=== PATIENT | male | born 1935 | race Caucasian/White ===

== ENCOUNTER → 2018-01-03 06:58 | Outpatient (CLI) | payer OTHER, SELFPAY ==
[2018-01-03 07:18] LABS: Add Manual Diff / Slide Review NO; Basophils Percent Auto 0.9 % (0-2); Eosinophils Percent Auto 1.9 % (2-4); Hematocrit 44.1 % (41-53); Hemoglobin 14.8 g/dL (13.5-17.5); Lymphocytes Percent Auto 32.8 % (25-40); Mean Corpuscular HGB Conc 33.6 % (30-36); Mean Corpuscular Hemoglobin 34.1 PG (26-34); Mean Corpuscular Volume 101.6 fL (80-100); Monocytes Percent Auto 7.4 % (3-14); Neutrophils Absolute Auto 3200 /uL (3000-5900); Red Blood Cell Count 4.35 X10^6/uL (4.5-5.9); Red Cell Distribution Width 15.5 % (11.6-14.8); White Blood Cell Count 5.6 X10^3/uL (4.5-11.0)
[2018-01-03 08:03] LABS: Platelet Count 65 X10^3/uL (150-400)
== END ==
PROVIDERS: Internal Medicine Hematology & Oncology; PCP Internal Medicine; Visit Provider Internal Medicine
DX: D69.3 Immune thrombocytopenic purpura (principal)
CPT/HCPCS: 36415; 85025

== ENCOUNTER → 2018-02-08 09:40 | Outpatient (CLI) | payer OTHER, SELFPAY ==
[2018-02-08 10:02] LABS: Add Manual Diff / Slide Review NO; Basophils Percent Auto 0.8 % (0-2); Eosinophils Percent Auto 1.4 % (2-4); Hematocrit 42.3 % (41-53); Hemoglobin 14.3 g/dL (13.5-17.5); Mean Corpuscular HGB Conc 33.8 % (30-36); Mean Corpuscular Hemoglobin 34.1 PG (26-34); Monocytes Percent Auto 5.9 % (3-14); Neutrophils Absolute Auto 2800 /uL (3000-5900); Neutrophils Percent Auto 57.9 % (50-75); Red Blood Cell Count 4.19 X10^6/uL (4.5-5.9); Red Cell Distribution Width 15.4 % (11.6-14.8); White Blood Cell Count 4.9 X10^3/uL (4.5-11.0)
[2018-02-08 10:35] LABS: Platelet Count 58 X10^3/uL (150-400)
== END ==
PROVIDERS: PCP Internal Medicine; Visit Provider Internal Medicine
DX: D69.3 Immune thrombocytopenic purpura (principal)
CPT/HCPCS: 36415; 85025

== ENCOUNTER → 2018-03-06 06:50 | Outpatient (CLI) | payer OTHER, SELFPAY ==
[2018-03-06 10:04] LABS: Add Manual Diff / Slide Review NO; Basophils Percent Auto 1.1 % (0-2); Eosinophils Percent Auto 2.6 % (2-4); Hematocrit 44.4 % (41-53); Hemoglobin 15.1 g/dL (13.5-17.5); Lymphocytes Percent Auto 30.3 % (25-40); Mean Corpuscular Volume 100.1 fL (80-100); Neutrophils Absolute Auto 3600 /uL (3000-5900); Red Blood Cell Count 4.43 X10^6/uL (4.5-5.9); Red Cell Distribution Width 15.3 % (11.6-14.8)
[2018-03-06 10:37] LABS: Platelet Count 76 X10^3/uL (150-400)
== END ==
PROVIDERS: Family Provider Internal Medicine Hematology & Oncology; PCP Internal Medicine; Visit Provider Internal Medicine
DX: D69.3 Immune thrombocytopenic purpura (principal)
CPT/HCPCS: 36415; 85025

== ENCOUNTER → 2018-04-11 06:52 | Outpatient (CLI) | payer OTHER, SELFPAY ==
[2018-04-11 07:47] LABS: Add Manual Diff / Slide Review NO; Basophils Percent Auto 0.6 % (0-2); Eosinophils Percent Auto 2.4 % (2-4); Hematocrit 40.8 % (41-53); Lymphocytes Percent Auto 30.2 % (25-40); Mean Corpuscular HGB Conc 34.3 % (30-36); Mean Corpuscular Volume 99.2 fL (80-100); Monocytes Percent Auto 8.1 % (3-14); Neutrophils Absolute Auto 3300 /uL (3000-5900); Neutrophils Percent Auto 58.7 % (50-75); Platelet Count 51 X10^3/uL (150-400); Red Blood Cell Count 4.11 X10^6/uL (4.5-5.9); Red Cell Distribution Width 15.7 % (11.6-14.8); White Blood Cell Count 5.6 X10^3/uL (4.5-11.0)
== END ==
PROVIDERS: PCP Internal Medicine; Visit Provider Internal Medicine
DX: D69.3 Immune thrombocytopenic purpura (principal)
CPT/HCPCS: 36415; 85025

== ENCOUNTER → 2018-05-15 08:53 | Outpatient (CLI) | payer OTHER, SELFPAY ==
[2018-05-15 09:50] LABS: Add Manual Diff / Slide Review NO; Basophils Percent Auto 0.5 % (0-2); Eosinophils Percent Auto 2.7 % (2-4); Hemoglobin 13.5 g/dL (13.5-17.5); Lymphocytes Percent Auto 32.8 % (25-40); Mean Corpuscular HGB Conc 33.7 % (30-36); Mean Corpuscular Hemoglobin 33.9 PG (26-34); Mean Corpuscular Volume 100.6 fL (80-100); Monocytes Percent Auto 6.1 % (3-14); Neutrophils Absolute Auto 3000 /uL (3000-5900); Neutrophils Percent Auto 57.9 % (50-75); Red Blood Cell Count 3.97 X10^6/uL (4.5-5.9); Red Cell Distribution Width 16.5 % (11.6-14.8); White Blood Cell Count 5.3 X10^3/uL (4.5-11.0)
[2018-05-15 10:12] LABS: Platelet Count 57 X10^3/uL (150-400)
== END ==
PROVIDERS: Family Provider Internal Medicine Hematology & Oncology; PCP Internal Medicine; Visit Provider Physician Assistant Medical
DX: D69.3 Immune thrombocytopenic purpura (principal)
CPT/HCPCS: 36415; 85025

== ENCOUNTER → 2018-06-06 07:22 | Outpatient (CLI) | payer OTHER, SELFPAY ==
[2018-06-06 07:43] LABS: Basophils Percent Auto 0.7 % (0-2); Eosinophils Percent Auto 4.1 % (2-4); Hematocrit 42.3 % (41-53); Hemoglobin 14.2 g/dL (13.5-17.5); Mean Corpuscular HGB Conc 33.6 % (30-36); Mean Corpuscular Hemoglobin 33.8 PG (26-34); Mean Corpuscular Volume 100.6 fL (80-100); Monocytes Percent Auto 6.3 % (3-14); Neutrophils Absolute Auto 4500 /uL (3000-5900); Neutrophils Percent Auto 65.9 % (50-75); Red Cell Distribution Width 15.6 % (11.6-14.8); White Blood Cell Count 6.9 X10^3/uL (4.5-11.0)
[2018-06-06 08:02] LABS: Add Manual Diff / Slide Review SLIDE REVIEW
[2018-06-06 08:41] LABS: Ovalocytes 1+; Platelet Estimate Decreased on smear
[2018-06-06 08:43] LABS: Platelet Count 64 X10^3/uL (150-400)
== END ==
PROVIDERS: Family Provider Internal Medicine Hematology & Oncology; PCP Internal Medicine; Visit Provider Internal Medicine
DX: D69.6 Thrombocytopenia, unspecified (principal)
CPT/HCPCS: 36415; 85025

== ENCOUNTER → 2018-07-08 06:51 | Outpatient (CLI) | payer OTHER, SELFPAY ==
[2018-07-08 08:20] LABS: Add Manual Diff / Slide Review NO; Basophils Percent Auto 0.5 % (0-2); Eosinophils Percent Auto 2.8 % (2-4); Hematocrit 43.7 % (41-53); Hemoglobin 14.5 g/dL (13.5-17.5); Lymphocytes Percent Auto 44.1 % (25-40); Mean Corpuscular HGB Conc 33.1 % (30-36); Mean Corpuscular Hemoglobin 33.3 PG (26-34); Mean Corpuscular Volume 100.6 fL (80-100); Monocytes Percent Auto 7.9 % (3-14); Neutrophils Absolute Auto 1800 /uL (3000-5900); Neutrophils Percent Auto 44.7 % (50-75); Platelet Count 56 X10^3/uL (150-400); Red Blood Cell Count 4.35 X10^6/uL (4.5-5.9); Red Cell Distribution Width 15.9 % (11.6-14.8); White Blood Cell Count 4.1 X10^3/uL (4.5-11.0)
== END ==
PROVIDERS: Family Provider Internal Medicine Hematology & Oncology; PCP Internal Medicine; Visit Provider Internal Medicine
DX: D69.9 Hemorrhagic condition, unspecified (principal)
CPT/HCPCS: 36415; 85025

== ENCOUNTER → 2018-08-08 06:55 | Outpatient (CLI) | payer OTHER, SELFPAY ==
[2018-08-08 08:12] LABS: Add Manual Diff / Slide Review NO; Basophils Percent Auto 0.8 % (0-2); Hematocrit 42.1 % (41-53); Hemoglobin 14.2 g/dL (13.5-17.5); Lymphocytes Percent Auto 32.4 % (25-40); Mean Corpuscular HGB Conc 33.7 % (30-36); Mean Corpuscular Hemoglobin 33.6 PG (26-34); Mean Corpuscular Volume 99.7 fL (80-100); Monocytes Percent Auto 8.5 % (3-14); Neutrophils Absolute Auto 3300 /uL (1500-7000); Neutrophils Percent Auto 56.3 % (50-75); Red Blood Cell Count 4.23 X10^6/uL (4.5-5.9); Red Cell Distribution Width 15.9 % (11.6-14.8); White Blood Cell Count 5.9 X10^3/uL (4.5-11.0)
[2018-08-08 08:22] LABS: Platelet Count 65 X10^3/uL (150-400)
== END ==
PROVIDERS: Family Provider Internal Medicine Hematology & Oncology; PCP Internal Medicine; Visit Provider Internal Medicine
DX: D69.59 Other secondary thrombocytopenia (principal)
CPT/HCPCS: 36415; 85025

== ENCOUNTER → 2018-09-18 06:54 | Outpatient (CLI) | payer OTHER, SELFPAY ==
[2018-09-18 08:25] LABS: Add Manual Diff / Slide Review NO; Basophils Absolute Auto 0 /uL (0-100); Basophils Percent Auto 0.7 % (0-2); Eosinophils Absolute Auto 100 /uL (0-450); Eosinophils Percent Auto 1.6 % (2-4); Hematocrit 42.6 % (41-53); Lymphocytes Absolute Auto 1900 /uL (1100-4500); Lymphocytes Percent Auto 31.1 % (25-40); Mean Corpuscular HGB Conc 32.9 % (30-36); Mean Corpuscular Hemoglobin 32.9 PG (26-34); Monocytes Absolute Auto 300 /uL (0-900); Monocytes Percent Auto 5.4 % (3-14); Neutrophils Absolute Auto 3700 /uL (1500-7000); Neutrophils Percent Auto 61.2 % (50-75); Red Blood Cell Count 4.26 X10^6/uL (4.5-5.9); Red Cell Distribution Width 16.4 % (11.6-14.8)
[2018-09-18 12:16] LABS: Platelet Count 64 X10^3/uL (150-400)
== END ==
PROVIDERS: Family Provider Internal Medicine Hematology & Oncology; PCP Internal Medicine; Visit Provider Internal Medicine
DX: D69.6 Thrombocytopenia, unspecified (principal)
CPT/HCPCS: 36415; 85025

== ENCOUNTER → 2018-10-08 06:54 | Outpatient (CLI) | payer OTHER, SELFPAY ==
[2018-10-08 09:48] LABS: Add Manual Diff / Slide Review NO; Basophils Absolute Auto 0 /uL (0-100); Basophils Percent Auto 0.9 % (0-2); Eosinophils Absolute Auto 100 /uL (0-450); Eosinophils Percent Auto 3.4 % (2-4); Hematocrit 41.4 % (41-53); Lymphocytes Absolute Auto 1600 /uL (1100-4500); Lymphocytes Percent Auto 38.4 % (25-40); Mean Corpuscular HGB Conc 33.7 % (30-36); Mean Corpuscular Hemoglobin 33.5 PG (26-34); Mean Corpuscular Volume 99.5 fL (80-100); Monocytes Absolute Auto 300 /uL (0-900); Monocytes Percent Auto 8.5 % (3-14); Neutrophils Absolute Auto 2000 /uL (1500-7000); Neutrophils Percent Auto 48.8 % (50-75); Red Blood Cell Count 4.17 X10^6/uL (4.5-5.9); Red Cell Distribution Width 16.5 % (11.6-14.8); White Blood Cell Count 4.1 X10^3/uL (4.5-11.0)
[2018-10-08 09:49] LABS: Platelet Count 53 X10^3/uL (150-400)
== END ==
PROVIDERS: Family Provider Internal Medicine Hematology & Oncology; PCP Internal Medicine; Visit Provider Internal Medicine
DX: D69.6 Thrombocytopenia, unspecified (principal)
CPT/HCPCS: 36415; 85025

== ENCOUNTER → 2018-11-07 06:54 | Outpatient (CLI) | payer OTHER, SELFPAY ==
--- NOTE | 2018-11-07 | DI.CT.S_ITS ---
PROCEDURE: CT ANGIO CHEST PE PROTOCOL INDICATIONS: Pleurodynia TECHNIQUE: After the administration of intravenous contrast, 2 mm thick sections acquired from the pulmonary apices to the posterior costophrenic angles. 3-dimensional maximum intensity projection (MIP) coronal and sagittal reformats were then acquired through the thorax. For radiation dose reduction, the following was used: automated exposure control, adjustment of mA and/or kV according to patient size. COMPARISON: None. FINDINGS: Image quality: Excellent. Pulmonary arteries: Pulmonary arteries are normal in size, and demonstrate no intraluminal filling defects to suggest central pulmonary embolism. Lungs and pleura: There is a hypodense mass identified demonstrating decreased or absent enhancement with vessels coursing through this structure along the right middle lobe, which measures 6.4 x 2.6 x 4.2 cm (image 45, series 7 and image 80, series 4). This structure is at the level of the diaphragm/pleura. Additional areas of scarring versus atelectasis are seen in the posterior costophrenic angles. No additional masses or large areas of consolidation are present. Mild bronchial wall thickening is noted within the bilateral lower lobes. Mediastinum: Heart size is enlarged, without pericardial effusion. Coronary and aortic atherosclerosis is present. No mediastinal or hilar adenopathy. Thoracic aorta is normal in caliber and enhancement. Esophagus is normal in caliber, without hiatal hernia. Bones and chest wall: No suspicious bony lesions. Ribs and thoracic spine appear intact throughout. The age-appropriate degenerative changes of the spine and shoulders are present. There may be a right thyroid nodule. No axillary or supraclavicular adenopathy. Abdomen: Small foci of low attenuation are seen within the liver, possibly representing cysts, but not adequately characterized. upper abdominal solid organs appear normal in the early arterial phase of enhancement. IMPRESSION: 1. No evidence of pulmonary emboli. 2. Nonenhancing/hypodense mass in the inferior right middle lobe may represent a neoplastic process, rounded atelectasis, or atypical pneumonia. Clinical correlation is recommended. Followup CT in 4-6 weeks is recommended to reevaluate this mass, if a biopsy is not currently warranted. 3. Cardiomegaly. 4. Mild bronchial wall thickening within the bilateral lower lobes may represent bronchitis. 5. Possible right thyroid nodule. Please consider thyroid ultrasound for better evaluation. Dictated by: Shyam Pavon M.D. on 11/07/2018 at 9:54 Approved by: Shyam Pavon M.D. on 11/07/2018 at 10:12
[2018-11-07 07:51] LABS: Add Manual Diff / Slide Review NO; Basophils Absolute Auto 100 /uL (0-100); Basophils Percent Auto 0.7 % (0-2); Eosinophils Absolute Auto 100 /uL (0-450); Eosinophils Percent Auto 0.7 % (2-4); Hematocrit 38.6 % (41-53); Hemoglobin 13.2 g/dL (13.5-17.5); Lymphocytes Absolute Auto 1800 /uL (1100-4500); Mean Corpuscular HGB Conc 34.2 % (30-36); Mean Corpuscular Hemoglobin 33.8 PG (26-34); Mean Corpuscular Volume 98.8 fL (80-100); Monocytes Absolute Auto 900 /uL (0-900); Monocytes Percent Auto 9.4 % (3-14); Neutrophils Absolute Auto 6600 /uL (1500-7000); Neutrophils Percent Auto 70.2 % (50-75); Red Blood Cell Count 3.91 X10^6/uL (4.5-5.9); Red Cell Distribution Width 16.1 % (11.6-14.8); White Blood Cell Count 9.4 X10^3/uL (4.5-11.0)
[2018-11-07 08:42] LABS: Platelet Count 59 X10^3/uL (150-400)
== END ==
PROVIDERS: Family Medicine; Family Provider Internal Medicine Hematology & Oncology; PCP Internal Medicine; Visit Provider Internal Medicine
DX: R07.81 Pleurodynia (principal); D69.6 Thrombocytopenia, unspecified; R91.8 Other nonspecific abnormal finding of lung field; I51.7 Cardiomegaly
CPT/HCPCS: 36415; 71275; 85025; Q9967

== ENCOUNTER → 2018-11-15 08:37 | Outpatient (CLI) | payer OTHER, SELFPAY ==
--- NOTE | 2018-11-15 08:42 | DI.CT.S_ITS ---
PROCEDURE: CT CHEST WO CON INDICATIONS: Pneumonia, unspecified organism TECHNIQUE: Noncontrast 5 mm thick sections acquired from the pulmonary apices to the posterior costophrenic angles. 7 mm thick coronal and sagittal MIP reformats were then acquired. For radiation dose reduction, the following was used: automated exposure control, adjustment of mA and/or kV according to patient size. COMPARISON: [facility], CT, CT ANGIO CHEST PE PROTOCOL, 11/07/2018, 10:39. FINDINGS: Image quality: Excellent. Lungs and pleura: Again noted is a probable necrotic mass in the right middle lobe with possible associated postobstructive collapse.. Is not significantly changed. It measures approximately 3.8 x 6.3 cm. It would be amenable to CT-guided biopsy. No other pulmonary nodules. Mediastinum: Heart size is normal. No pericardial effusion. Coronary artery calcifications. Shoddy mediastinal adenopathy. Thoracic aorta and central pulmonary arteries are normal in size. Esophagus is normal in caliber. No hiatal hernia. Bones and chest wall: No suspicious bony lesions. Severe, probably chronic T12 compression fracture. No axillary or supraclavicular adenopathy by size criteria. Thyroid gland is better evaluated on the prior contrast study. There is a likely right lobe thyroid nodule. Abdomen: Visualized upper abdominal solid organs and bowel loops appear normal in the absence of contrast. IMPRESSION: 1. The process centered in the right middle lobe is unchanged. 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 It is amenable to CT-guided biopsy if desired. 2. A T12 compression fracture is likely chronic. The Dictated by: Alverto Pickett M.D. on 11/15/2018 at 11:41 Approved by: Alverto Picektt M.D. on 11/15/2018 at 11:56
== END ==
PROVIDERS: Family Provider Internal Medicine Hematology & Oncology; PCP Internal Medicine; Visit Provider Internal Medicine
DX: J18.9 Pneumonia, unspecified organism (principal); M48.54XA Collapsed vertebra, not elsewhere classified, thoracic region, initial encounter for fracture
CPT/HCPCS: 71250

== ENCOUNTER → 2018-12-02 10:13 | Outpatient (CLI) | payer OTHER, SELFPAY ==
--- NOTE | 2018-12-02 | DI.US.S_ITS ---
PROCEDURE: US THYROID INDICATIONS: THYROID NODULE TECHNIQUE: Real-time scanning was performed of the thyroid gland, with image documentation. COMPARISON: None. FINDINGS: Right: Thyroid lobe measures 4.3 x 2.0 x 2.6 cm, and is homogeneous in echotexture. Left: Thyroid lobe measures 2.3 x 0.9 x 0.9 cm, and is homogenous in echotexture. Isthmus: 3.4 mm thick. Nodule number: 1 Location: Right superior Size: 2.9 x 2.3 x 2.2 cm. Composition: Solid Echogenicity: Heterogeneous Shape: wider than tall. Margins: Smooth Echogenic foci: None Total points: 4 ACR TI-RADS category: Moderately suspicious Nodule number: 2 Location: Left superior to mid Size: 0.4 x 0.3 x 0.5 cm. Composition: Predominantly cystic Echogenicity: Anechoic Shape: wider than tall. Margins: Ill-defined Echogenic foci: None Total points: 2 ACR TI-RADS category: Not suspicious IMPRESSION: Moderately suspicious right thyroid nodule measuring up to 2.9 cm. Recommend sonographically directed fine needle aspiration for pathologic diagnosis. ACR TI-RADS definitions and recommendations: TI-RADS 1 (benign): 0 points. FNA not needed. TI-RADS 2 (not suspicious): 2 points. FNA not needed. TI-RADS 3 (mildly suspicious): 3 points. * FNA if 2.5 cm or larger, follow up if 1.5 cm or larger (at 1, 3, and 5 years). TI-RADS 4 (moderately suspicious): 4-6 points. * FNA if 1.5 cm or larger, follow up if 1 cm or larger (at 1, 2, 3, and 5 years). TI-RADS 5 (highly suspicious): 7 points or more. * FNA if 1 cm or larger, follow up if 0.5 cm or larger (every year for 5 years). Dictated by: Matt MARTINEZ Interpreted: Janny Weaver MD on 12/02/2018 at 11:25 Approved by: Janny Weaver MD, PhD on 12/02/2018 at 18:02
== END ==
PROVIDERS: Family Provider Internal Medicine Hematology & Oncology; PCP Internal Medicine; Visit Provider Internal Medicine
DX: E04.2 Nontoxic multinodular goiter (principal)
CPT/HCPCS: 76536

== ENCOUNTER → 2018-12-11 10:30 | Outpatient (CLI) | payer OTHER, SELFPAY ==
--- NOTE | 2018-12-11 | DI.CT.S_ITS ---
PROCEDURE: CT CHEST WO CON INDICATIONS: Other nonspecific abnormal finding of lung field TECHNIQUE: Noncontrast 5 mm thick sections acquired from the pulmonary apices to the posterior costophrenic angles. 7 mm thick coronal and sagittal MIP reformats were then acquired. For radiation dose reduction, the following was used: automated exposure control, adjustment of mA and/or kV according to patient size. COMPARISON: [facility], CT, CT CHEST WO CON, 11/15/2018, 8:42. FINDINGS: Image quality: Excellent. Lungs and pleura: No acute or new consolidation. There is redemonstration of presumed atelectasis in the right middle lobe which is improved since the prior study in keeping with resolving infectious or inflammatory pneumonia. No pleural effusions or pneumothorax. Central and peripheral airways are patent and normal in caliber. Mediastinum: Heart size is normal. Coronary artery calcifications are present. No pericardial effusion. No mediastinal adenopathy by size criteria. Thoracic aorta and central pulmonary arteries are normal in size. Esophagus is normal in caliber. No hiatal hernia. Bones and chest wall: No suspicious bony lesions. No vertebral body compression fractures. No axillary or supraclavicular adenopathy by size criteria. Thyroid gland unremarkable. Abdomen: Low-attenuation subcentimeter hepatic focus in the left lobe, too small to characterize probably cyst or hemangioma given unchanged appearance IMPRESSION: Improved, resolving right middle lobe pneumonia since 11/15/18. Consider continued followup to document complete resolution and exclude underlying small nodule. Dictated by: Brendan Jasso M.D. on 12/11/2018 at 13:50 Approved by: Brendan Jasso M.D. on 12/11/2018 at 13:54
[2018-12-11 11:06] LABS: Add Manual Diff / Slide Review NO; Basophils Absolute Auto 0 /uL (0-100); Basophils Percent Auto 0.7 % (0-2); Eosinophils Absolute Auto 100 /uL (0-450); Eosinophils Percent Auto 1.8 % (2-4); Hematocrit 42.2 % (41-53); Hemoglobin 14.2 g/dL (13.5-17.5); Lymphocytes Absolute Auto 1800 /uL (1100-4500); Lymphocytes Percent Auto 38.2 % (25-40); Mean Corpuscular HGB Conc 33.6 % (30-36); Mean Corpuscular Hemoglobin 33.6 PG (26-34); Monocytes Absolute Auto 400 /uL (0-900); Monocytes Percent Auto 7.6 % (3-14); Neutrophils Absolute Auto 2400 /uL (1500-7000); Neutrophils Percent Auto 51.7 % (50-75); Red Blood Cell Count 4.22 X10^6/uL (4.5-5.9); Red Cell Distribution Width 16.9 % (11.6-14.8); White Blood Cell Count 4.6 X10^3/uL (4.5-11.0)
[2018-12-11 11:38] LABS: Platelet Count 51 X10^3/uL (150-400)
== END ==
PROVIDERS: Family Provider Internal Medicine Hematology & Oncology; PCP Internal Medicine; Visit Provider Internal Medicine
DX: J18.9 Pneumonia, unspecified organism (principal); R91.8 Other nonspecific abnormal finding of lung field; I25.10 Atherosclerotic heart disease of native coronary artery without angina pectoris; D69.6 Thrombocytopenia, unspecified
CPT/HCPCS: 36415; 71250; 85025

== ENCOUNTER → 2018-12-18 08:57 | Outpatient (CLI) | payer OTHER, SELFPAY ==
--- NOTE | 2018-12-18 | DI.MRI.S_ITS ---
PROCEDURE: MR HEAD/BRAIN WO/W CON INDICATIONS: Dizziness and giddiness TECHNIQUE: Noncontrast axial T1 spin echo, axial T2 fast spin echo, sagittal and axial FLAIR, coronal T2 fast spin echo, axial gradient echo, axial diffusion and ADC through the brain. After the administration of contrast, axial and coronal T1 spin echo with fat saturation through the brain. COMPARISON: [place], [place], ID PET CT FUSION SKULL 2 THIGH, 11/27/2018, 15:06. FINDINGS: Image quality: Excellent. CSF spaces: Basal cisterns are patent. No extra-axial fluid collections. Ventricles are normal in size and shape. Brain: No midline shift. No intracranial bleeds or masses. No abnormal intracranial enhancement. There is mild cerebral volume loss for age. There are mild periventricular white matter chronic small vessel ischemic changes. Dilated perivascular space is noted in basal ganglia bilaterally. The brainstem appears normal. Diffusion-weighted images demonstrate no acute ischemic insults. No chronic ischemic insults. Normal intravascular flow voids are present. Skull and face: Calvarial marrow is normal in signal. Orbits appear normal. Sinuses: Sinuses and mastoids appear clear. IMPRESSION: 1. No acute intracranial abnormalities. 2. Mild cerebral volume loss and chronic microvascular ischemic changes. Dictated by: Tre Mane M.D. on 12/18/2018 at 9:32 Approved by: Tre Mane M.D. on 12/18/2018 at 9:38
--- NOTE | 2018-12-18 | DI.US.S_ITS ---
PROCEDURE: US CAROTID DOPPLER BI INDICATIONS: DIZZINESS AND GIDDINESS TECHNIQUE: Color and pulse Doppler interrogation was performed of both carotid systems, with image documentation and velocity measurements. COMPARISON: [facility], , CAROTID ARTERY DOPPLER BILAT, 08/31/2017, 8:44. FINDINGS: Stenosis calculations are based on SRU (Society of Radiologists in Ultrasound) criteria. Right side: Brachial blood pressure: 96/60 mm Hg. Common carotid artery peak systolic velocity: 64 cm/sec. Internal carotid artery peak systolic velocity: 55 cm/sec. Internal carotid artery end diastolic velocity: 22 cm/sec. External carotid artery peak systolic velocity: 76 cm/sec. ICA/CCA peak systolic ratio: 1.0. Cantrell scale imaging description: There is mild echogenic plaque at the carotid bifurcation and in the carotid bulb. Percent internal carotid artery stenosis: Less than 50%. Vertebral artery: Flow direction is antegrade. Left side: Brachial blood pressure: 99/64 mm Hg. Common carotid artery peak systolic velocity: 119 cm/sec. Internal carotid artery peak systolic velocity: 57 cm/sec. Internal carotid artery end diastolic velocity: 23 cm/sec. External carotid artery peak systolic velocity: 59 cm/sec. ICA/CCA peak systolic ratio: 0.5 Cantrell scale imaging description: There mild echogenic plaque in the carotid bulb. Percent internal carotid artery stenosis: Less than 50%. Vertebral artery: Flow direction is antegrade. IMPRESSION: 1. Bilateral mild narrowing of less than 50% in the carotid bulbs. No evidence of hemodynamically significant stenosis. Dictated by: Michael Davenport M.D. on 12/18/2018 at 10:45 Approved by: Michael Davenport M.D. on 12/18/2018 at 10:55
== END ==
PROVIDERS: Family Provider Internal Medicine Hematology & Oncology; PCP Internal Medicine; Visit Provider Otolaryngology
DX: R42 Dizziness and giddiness (principal); I65.23 Occlusion and stenosis of bilateral carotid arteries
CPT/HCPCS: 70553; 93880; A9579

== ENCOUNTER → 2018-12-25 09:39 | Outpatient (CLI) | payer OTHER, SELFPAY ==
--- NOTE | 2018-12-25 | PATH_ITS ---
Note [facility] Accession Number: [id number] TESTS RESULT FLAG UNITS REF RANGE LAB Clinician Provided Cytology Information No. of containers..01 ThinPrep Vial No. of containers..18 Previously Prepared Cytology Slide R THYROID NODULE DIAGNOSIS: R THYROID NODULE INADEQUATE, INSUFFICIENT CELLS FOR STUDY. [place] CATEGORY I. NONDIAGNOSTIC: MARKEDLY HYPOCELLULAR SPECIMEN. Pathologist ICD10: 02 E04.1 01 A follow-up noncontrast CT scan on November 15, 2018 again showed right middle lobe 3.8 x 6.3 cm mass lesion. He has just had a PET scan done on November 27, 2018, which revealed 2.4 x 4.4 cm mass in the right middle lobe. The lesion had mild FDG activity with maximum SUV 2.6. Incidentally he was also found to have enlargeed right thyroid lobe wtih mildly increased FDG activity. Thyroid altrasound on December 02, 2018 revealed right superior lobe solid thyroid nodule, size 2.9 x 2.3 x 2.2 cm. The nodule was rated as moderately suspicious. 02 Consuelo Champagne MD, Pathologist NPI- [id number] 01 Omer Colin, [facility] ([facility]) 01 30 CC, RED, CLEAR Also received 9 alcohol fixed, 9 quick stained slides, and 1 RNA vial. /[facility] FLAG LEGEND: L-Low Normal,H-High Normal,LL-Alert Low,HH-Alert High <-Panic Low,>-Panic High,A-Abnormal,AA-Critical Abnormal Performed at: 01 =[facility] [address], [place] [address] Michael Willingham MD, 02 [facility] [address] [place] [id number] Leeanne Neves MD, Performed at: 01 [facility] [address], [place], [place] [id number] MD Michael Willingham MD Phone: [phone]
--- NOTE | 2018-12-25 | DI.US.S_ITS ---
PROCEDURE: US FINE NEEDLE ASPIRATION INDICATIONS: NODULE TECHNIQUE: The indications, alternatives, benefits, risks, and complications of the procedure were explained to the patient. Written informed consent was obtained and placed in the chart. The thyroid region was examined sonographically and a site was chosen for ultrasound guided percutaneous sampling. The skin was prepared and draped in the usual fashion, and anesthetized with 1% lidocaine infiltrated from the skin down to the thyroid gland. Multiple passes were then performed, with contents emptied into an appropriate pathology specimen container. A bandage was applied to the area of access at completion of the study. COMPARISON: None. FINDINGS: Location(s) of lesion(s) sampled: Right thyroid lobe dominant nodule. [place]: 25 gauge hypodermic needles. Number of passes: 10 Medications: 1% lidocaine for local anaesthesia. Complications: None. IMPRESSION: Successful ultrasound-guided thyroid nodule fine needle aspiration, with cytology results pending. Please see chart below for management recommendations based on cytology results. [facility] ReportingRecommendationsNon-diagnostic* Repeat US-guided FNA, with on-site cytology evaluation if possible. * Repeated non-diagnostic nodules without high suspicion US features: close observation vs surgical consult. * Consider surgery if nodule has high suspicion US features, grows >20% in 2 dimensions on followup, or patient has clinical risk factors for malignancy. Benign* If nodule has high suspicion US features: repeat US and FNA within 12 months. * If nodule has low to intermediate suspicion US features: repeat US at 12-24 months. If nodule grows (20% increase in at least 2 dimensions, with minimal increase of 2 mm or >50% change in volume), or development of new suspicious US features, then repeat FNA or continue followup. * If nodule has very low suspicion US features: followup US at >24 months. Atypia of undetermined significance, follicular lesion of undetermined significanceRepeat FNA, molecular testing, followup US, or surgical consult.Follicular neoplasm, suspicious for follicular neoplasmSurgical consult; also consider molecular testing. Suspicious for malignancySurgical consult.MalignantSurgical consult. Dictated by: Lazaro Lomeli M.D. on 12/25/2018 at 11:54 Approved by: Lazaro Lomeli M.D. on 12/25/2018 at 11:55
== END ==
PROVIDERS: Family Provider Internal Medicine Hematology & Oncology; PCP Internal Medicine; Visit Provider Internal Medicine
DX: E04.1 Nontoxic single thyroid nodule (principal)
CPT/HCPCS: 10005

== ENCOUNTER → 2019-01-14 07:00 | Outpatient (CLI) | payer OTHER, SELFPAY ==
[2019-01-14 08:32] LABS: Add Manual Diff / Slide Review NO; Basophils Absolute Auto 0 /uL (0-100); Eosinophils Absolute Auto 100 /uL (0-450); Eosinophils Percent Auto 2.2 % (2-4); Hematocrit 42.3 % (41-53); Hemoglobin 14.4 g/dL (13.5-17.5); Lymphocytes Absolute Auto 2000 /uL (1100-4500); Lymphocytes Percent Auto 41.1 % (25-40); Mean Corpuscular HGB Conc 34.1 % (30-36); Mean Corpuscular Hemoglobin 33.9 PG (26-34); Mean Corpuscular Volume 99.4 fL (80-100); Monocytes Absolute Auto 400 /uL (0-900); Monocytes Percent Auto 7.1 % (3-14); Neutrophils Absolute Auto 2400 /uL (1500-7000); Neutrophils Percent Auto 48.6 % (50-75); Red Blood Cell Count 4.25 X10^6/uL (4.5-5.9); Red Cell Distribution Width 16.5 % (11.6-14.8); White Blood Cell Count 4.9 X10^3/uL (4.5-11.0)
[2019-01-14 08:44] LABS: Platelet Count 51 X10^3/uL (150-400)
== END ==
PROVIDERS: Family Provider Internal Medicine Hematology & Oncology; PCP Internal Medicine; Visit Provider Internal Medicine
DX: D69.6 Thrombocytopenia, unspecified (principal)
CPT/HCPCS: 36415; 85025

== ENCOUNTER → 2019-02-06 06:52 | Outpatient (CLI) | payer OTHER, SELFPAY ==
[2019-02-06 07:46] LABS: Hematocrit 42.9 % (41-53); Hemoglobin 14.3 g/dL (13.5-17.5); Mean Corpuscular HGB Conc 33.4 % (30-36); Mean Corpuscular Hemoglobin 33.6 PG (26-34); Mean Corpuscular Volume 100.8 fL (80-100); Red Blood Cell Count 4.25 X10^6/uL (4.5-5.9); Red Cell Distribution Width 16.1 % (11.6-14.8); White Blood Cell Count 4.6 X10^3/uL (4.5-11.0)
[2019-02-06 07:47] LABS: Platelet Count 52 X10^3/uL (150-400)
[2019-02-06 08:44] LABS: Add Manual Diff / Slide Review SLIDE REVIEW
[2019-02-06 08:45] LABS: Platelet Estimate Decreased on smear
[2019-02-06 08:46] LABS: Anisocytosis 1+; Macrocytosis 1+; Ovalocytes 1+; Poikilocytosis 1+
== END ==
PROVIDERS: Family Provider Internal Medicine Hematology & Oncology; PCP Internal Medicine; Visit Provider Internal Medicine
DX: D69.6 Thrombocytopenia, unspecified (principal)
CPT/HCPCS: 36415; 85025

== ENCOUNTER → 2019-02-13 06:40 | Outpatient (CLI) | payer OTHER, SELFPAY ==
--- NOTE | 2019-02-13 07:16 | DI.CT.S_ITS ---
PROCEDURE: CT CHEST WO CON INDICATIONS: LUNG MASS TECHNIQUE: Noncontrast 2.0-2.5 mm thick sections acquired from the pulmonary apices to the posterior costophrenic angles. 7 mm thick axial MIP and 5 mm coronal and sagittal reformats were then acquired. A low radiation dose technique was utilized. COMPARISON: [facility], US, US THYROID, 12/02/2018, 10:26. [facility], CT, CT CHEST WO CON, 11/15/2018, 8:42. [facility], CT, CT CHEST WO CON, 12/11/2018, 10:46. FINDINGS: Image quality: Diagnostic, given the low radiation dose technique. Lungs and pleura: No acute consolidation. There is ill-defined scarring/atelectasis involving the right middle lobe appears less prominent in size and appearance since 12/11/18. No new focal consolidation is seen. Scattered bibasilar atelectasis and scarring. Mild central airway thickening Mediastinum: Heart size is normal. Coronary artery calcifications are present. No pericardial effusion. No mediastinal adenopathy by size criteria. Thoracic aorta and central pulmonary arteries are normal in size. Esophagus is normal in caliber. No hiatal hernia. Bones and chest wall: No suspicious bony lesions. Unchanged appearance of thoracolumbar compression fracture. No axillary or supraclavicular adenopathy by size criteria. Redemonstrated right-sided thyroid nodule as previously described on the comparison ultrasound from 12/02/18. Please see report. Abdomen: Subcentimeter hypodensities present in the dome the liver as before, presumably small hepatic cysts or hemangiomas given stable appearance although technically nonspecific. IMPRESSION: Interval near-complete resolution of right middle lobe, with residual mild scarring/atelectasis. No discrete pulmonary nodule identified. Coronary artery disease. Additional chronic and incidental findings as above. Fleischner Society criteria for SOLID lung nodule followup. Nodule size (mm)Low-risk patientHigh-risk patient<6 (single or multiple)No routine followup.Optional CT at 12 months. 6-8 (single or multiple)CT at 6-12 months, then optional CT at 18-24 mo.CT at 6-12 months, then CT at 18-24 months. >8 (single)CT at 3 months, PET-CT, or biopsy. Same as for low-risk pts. >8 (multiple)CT at 3-6 months, then optional CT at 18-24 mo.CT at 3-6 months, then CT at 18-24 months. Fleischner Society criteria for SUB-SOLID lung nodule followup. Solitary pure ground-glass nodules<6 mm (ground glass or part solid)No followup needed. 6 mm or larger (ground glass)CT at 6-12 months to confirm persistence, then CT every 2 years until 5 years.6 mm or larger (part solid)CT at 3-6 months to confirm persistence, then annual CT until 5 years if unchanged and solid component remains <6 mm. Multiple sub-solid nodules<6 mmCT at 3-6 months, then CT consider at 2 & 4 years for high risk patients. [address] at 3-6 months. Subsequent management based on most suspicious lesions. Recommendations do not apply to lung cancer screening, patients with immunosuppression, or patients with known primary cancer. Dictated by: Brendan Jasso M.D. on 02/13/2019 at 10:52 Approved by: Brendan Jasso M.D. on 02/13/2019 at 11:22
== END ==
PROVIDERS: Family Provider Internal Medicine Hematology & Oncology; PCP Internal Medicine; Visit Provider Internal Medicine
DX: R91.8 Other nonspecific abnormal finding of lung field (principal); J98.11 Atelectasis; J98.4 Other disorders of lung; I25.10 Atherosclerotic heart disease of native coronary artery without angina pectoris; E04.1 Nontoxic single thyroid nodule
CPT/HCPCS: 71250

== ENCOUNTER → 2019-03-18 07:03 | Outpatient (CLI) | payer OTHER, SELFPAY ==
[2019-03-18 08:40] LABS: Add Manual Diff / Slide Review NO; Basophils Absolute Auto 0 /uL (0-100); Basophils Percent Auto 0.8 % (0-2); Eosinophils Absolute Auto 100 /uL (0-450); Eosinophils Percent Auto 2.2 % (2-4); Hematocrit 44.2 % (41-53); Hemoglobin 15.1 g/dL (13.5-17.5); Lymphocytes Absolute Auto 1600 /uL (1100-4500); Lymphocytes Percent Auto 43.3 % (25-40); Mean Corpuscular HGB Conc 34.2 % (30-36); Mean Corpuscular Hemoglobin 34.2 PG (26-34); Mean Corpuscular Volume 99.8 fL (80-100); Monocytes Absolute Auto 400 /uL (0-900); Monocytes Percent Auto 9.8 % (3-14); Neutrophils Absolute Auto 1600 /uL (1500-7000); Neutrophils Percent Auto 43.9 % (50-75); Red Blood Cell Count 4.42 X10^6/uL (4.5-5.9); Red Cell Distribution Width 15.5 % (11.6-14.8); White Blood Cell Count 3.7 X10^3/uL (4.5-11.0)
[2019-03-18 09:46] LABS: Platelet Count 49 X10^3/uL (150-400)
== END ==
PROVIDERS: Family Provider Internal Medicine Hematology & Oncology; PCP Internal Medicine; Visit Provider Internal Medicine
DX: D69.6 Thrombocytopenia, unspecified (principal)
CPT/HCPCS: 36415; 85025

== ENCOUNTER → 2019-04-14 07:00 | Outpatient (CLI) | payer OTHER, SELFPAY ==
[2019-04-14 08:05] LABS: Add Manual Diff / Slide Review NO; Basophils Absolute Auto 100 /uL (0-100); Basophils Percent Auto 1.2 % (0-2); Eosinophils Absolute Auto 100 /uL (0-450); Eosinophils Percent Auto 2.9 % (2-4); Hematocrit 44.3 % (41-53); Hemoglobin 14.9 g/dL (13.5-17.5); Lymphocytes Absolute Auto 1600 /uL (1100-4500); Lymphocytes Percent Auto 35.6 % (25-40); Mean Corpuscular HGB Conc 33.6 % (30-36); Mean Corpuscular Hemoglobin 33.8 PG (26-34); Mean Corpuscular Volume 100.8 fL (80-100); Monocytes Absolute Auto 400 /uL (0-900); Monocytes Percent Auto 7.9 % (3-14); Neutrophils Absolute Auto 2400 /uL (1500-7000); Neutrophils Percent Auto 52.4 % (50-75); Platelet Count 50 X10^3/uL (150-400); Red Cell Distribution Width 16.3 % (11.6-14.8); White Blood Cell Count 4.5 X10^3/uL (4.5-11.0)
== END ==
PROVIDERS: Family Provider Internal Medicine Hematology & Oncology; PCP Internal Medicine; Visit Provider Internal Medicine
DX: D69.6 Thrombocytopenia, unspecified (principal)
CPT/HCPCS: 36415; 85025

== ENCOUNTER 2019-05-10 09:52 | Emergency (ER) | payer OTHER, SELFPAY ==
[2019-05-10 10:08] VITALS: BP 105/57; PULSE 61; RESP 18; TEMP 36.5; O2SAT 97; BMI 24.3
--- NOTE | 2019-05-10 10:16 | ED_ITS ---
HPI - Abdominal Pain General Chief Complaint: Abdominal Pain Stated Complaint: abd pain/n&v/low back/lt arm x2 Time Seen by Provider: 05/10/19 10:01 Source: patient Mode of arrival: Family Vehicle Limitations: no limitations History of Present Illness HPI narrative: 84-year-old male here for evaluation of upper abdomen pain. He states that he has felt very full for the past 24 hours. He also states that he slept most of the day yesterday. He did have 1 episode of vomiting. No prior abdominal surgeries. Went to the walk-in clinic who sent him here to the emergency department. No problems urinating. No change in bowel habits. No prior abdominal surgeries. Related Data Previous Rx's Medication Instructions Recorded sulfamethoxazole-trimethoprim 1 tab PO BID #42 tab 09/02/16 ondansetron 4 mg PO Q6H PRN #10 tab 05/10/19 Allergies Allergy/AdvReac Type Severity Reaction Status Date / Time No Known Drug Allergies Allergy Verified 05/10/19 10:36 Review of Systems Constitutional Constitutional: Denies fever(s) and Denies headache(s) ENT Ears, Nose, Mouth, and Throat: Denies headache(s) Cardiovascular Cardiovascular: Denies chest pain and Denies dyspnea Respiratory Respiratory: Denies dyspnea Gastrointestinal Gastrointestinal: Reports abdominal pain, Denies constipation, Denies diarrhea and Reports vomiting Genitourinary Genitourinary: Denies hematuria and Denies dysuria Musculoskeletal Musculoskeletal: Denies myalgias and Denies arthralgias Integumentary/Breasts Skin/Breast: Denies rash Neurologic Neurologic: Denies confusion and Denies headache(s) Psychiatric Psychiatric: Denies confusion Hematologic/Lymphatic Hematologic/Lymphatic: Denies easy bleeding and Denies easy bruising [facility] Medical History Patient denies medical problems (Acute) Social History Smoking Status: Former smoker Social History Smoking Status: Former smoker Exam Initial Vital Signs Initial Vital Signs: Vital Signs Temperature 97.7 F 05/10/19 10:08 Pulse Rate 61 05/10/19 10:08 Respiratory Rate 18 05/10/19 10:08 Blood Pressure 105/57 L 05/10/19 10:08 Pulse Oximetry 97 05/10/19 10:08 Const General: cooperative, healthy appearing, comfortable and well developed HENMT Head: normal to inspection and normocephalic Resp Effort & Inspection: normal respiratory effort Auscultation: clear to auscultation bilaterally Cardio Rate: regular rate Rhythm: regular rhythm GI Inspection: non-distended Palpation: soft, No firm and No tender Skin Lesions: no lesions Rashes: no rashes Neuro General: alert and awake Cognition: normal cognition Speech: speech normal Motor: muscle tone normal throughout Extrem General: normal to inspection and capillary refill normal Psych Appearance: grossly normal and well kempt Course Orders Ordered: ED Orders 05/10/19 10:07 EKG-12 Lead Stat 05/10/19 10:17 CT abdomen pelvis w con Stat 05/10/19 10:21 Complete Blood Count AUTO DIFF Stat Comprehensive Metabolic Panel Stat Lipase Stat Partial Thromboplastin Time Stat Prothrombin Time INR Stat Trop I [Troponin I] Stat Discontinued Medications Sodium Chloride (Normal Saline 0.9%) 1,000 mls @ 1,000 mls/hr IV BOLUS ONE Stop: 05/10/19 11:15 Last Infusion: 05/10/19 12:22 Dose: 0 mls/hr Documented by: Admin: 05/10/19 10:41 Dose: 1,000 mls/hr Documented by: MENG Vital Signs Vital signs: Vital Signs - 8 hr 05/10/19 10:08 05/10/19 11:03 05/10/19 11:50 Temperature 97.7 F Pulse Rate 61 51 L 58 L Respiratory Rate 18 16 Blood Pressure 105/57 L Blood Pressure [Left Arm] 98/59 L 100/53 L Pulse Oximetry 97 97 97 MDM - Abdominal Pain Lab Data Attestation: I reviewed the patient's lab results. Result diagrams: 05/10/19 10:21 05/10/19 10:21 Labs: Lab Results 05/10/19 05/10/19 05/10/19 Range/Units 10:21 10:21 10:21 WBC 3.6 L (4.5-11.0) X10^3/uL RBC 4.18 L (4.5-5.9) X10^6/uL Hgb 14.1 (13.5-17.5) g/dL Hct 42.0 (41-53) % MCV 100.6 H (80-100) fL MCH 33.8 (26-34) PG MCHC 33.6 (30-36) % RDW 15.9 H (11.6-14.8) % Plt Count 40 L (150-400) X10^3/uL Neut % (Auto) 57.5 (50-75) % Lymph % (Auto) 31.3 (25-40) % Mcdonough % (Auto) 7.5 (3-14) % Eos % (Auto) 2.8 (2-4) % Baso % (Auto) 0.9 (0-2) % Neut # (Auto) 2100 (8229-1210) /uL Lymph # (Auto) 1100 (1630-1608) /uL Mcdonough # (Auto) 300 (0-900) /uL Eos # (Auto) 100 (0-450) /uL Baso # (Auto) 0 (0-100) /uL PT 11.4 (10.1-12.7) SECONDS INR 1.0 (0.9-1.3) APTT 29 (26.4-36.2) SECONDS Sodium 138 (137-145) mmol/L Potassium 3.9 (3.4-5.1) mmol/L Chloride 104 (98-107) mmol/L Carbon Dioxide 26 (22-32) mmol/L BUN 22 H (9-20) mg/dL Creatinine 1.20 (0.66-1.25) mg/dL Estimated GFR 57.8 L (>60) mL/min BUN/Creatinine Ratio 18.3 (6-22) Glucose 100 (80-110) mg/dL Calcium 8.6 (8.4-10.2) mg/dL Total Bilirubin 1.1 (0.2-1.3) mg/dL AST 30 (17-59) IU/L ALT 33 (21-72) IU/L Alkaline Phosphatase 58 (38-126) U/L Troponin I (0.01-0.034) ng/mL Total Protein 5.9 L (6.3-8.2) g/dL Albumin 3.5 (3.5-5.0) g/dL Globulin 2.4 (1.7-4.1) g/dL Albumin/Globulin Ratio 1.5 (1.0-2.8) Lipase 43 (23-300) U/L 05/10/19 Range/Units 10:21 WBC (4.5-11.0) X10^3/uL RBC (4.5-5.9) X10^6/uL Hgb (13.5-17.5) g/dL Hct (41-53) % MCV (80-100) fL MCH (26-34) PG MCHC (30-36) % RDW (11.6-14.8) % Plt Count (150-400) X10^3/uL Neut % (Auto) (50-75) % Lymph % (Auto) (25-40) % Mcdonough % (Auto) (3-14) % Eos % (Auto) (2-4) % Baso % (Auto) (0-2) % Neut # (Auto) (5573-8147) /uL Lymph # (Auto) (7518-0655) /uL Mcdonough # (Auto) (0-900) /uL Eos # (Auto) (0-450) /uL Baso # (Auto) (0-100) /uL PT (10.1-12.7) SECONDS INR (0.9-1.3) APTT (26.4-36.2) SECONDS Sodium (137-145) mmol/L Potassium (3.4-5.1) mmol/L Chloride (98-107) mmol/L Carbon Dioxide (22-32) mmol/L BUN (9-20) mg/dL Creatinine (0.66-1.25) mg/dL Estimated GFR (>60) mL/min BUN/Creatinine Ratio (6-22) Glucose (80-110) mg/dL Calcium (8.4-10.2) mg/dL Total Bilirubin (0.2-1.3) mg/dL AST (17-59) IU/L ALT (21-72) IU/L Alkaline Phosphatase (38-126) U/L Troponin I < 0.012 (0.01-0.034) ng/mL Total Protein (6.3-8.2) g/dL Albumin (3.5-5.0) g/dL Globulin (1.7-4.1) g/dL Albumin/Globulin Ratio (1.0-2.8) Lipase (23-300) U/L Point of care testing: Urine Dip Bedside Urine Glucose Negative Bedside Urine Bilirubin - Negative Bedside Urine Ketone - Negative Urine Specific Dema 1.015 Bedside Urine Occult Blood - Negative Bedside Urine pH 5.5 Bedside Urine Protein - Negative Bedside Urine Urobilinogen - Negative Bedside Urine Nitrite - Negative Bedside Urine Leukocytes - Negative Esterase Imaging Data CT scan - abdomen: Radiologist's impression: [address] [address] [address] Scan Report Signed Patient: Phi Cantrell FMR#: [id number] : 1935Acct:[id number] Age/Sex: 84 / MDate of Service: 05/10/19 Loc: ED Accession Number: [id number] Procedure: CT abdomen pelvis w con Ordering Provider: Juan Carlos Costa D.O. PROCEDURE: CT ABDOMEN PELVIS W CON INDICATIONS: Generalized abdominal pain TECHNIQUE: After the administration of intravenous contrast, 5 mm thick sections acquired from the diaphragm to the symphysis. 5 mm coronal and sagittal reformats were acquired. For radiation dose reduction, the following was used: automated exposure control, adjustment of mA and/or kV according to patient size. COMPARISON: [facility], CT, CT ANGIO CHEST PE PROTOCOL, 11/07/2018, 10:39. [facility], US, RENAL COMPLETE, 04/27/2015, 10:37. [facility], CT, CT CHEST WO CON, 02/13/2019, 7:03. FINDINGS: Image quality: Excellent. ABDOMEN: Lung bases: Lung bases are clear. Heart size is normal. Solid organs: Liver is normal in size and enhancement. Subcentimeter apparent liver cysts are seen. Gallbladder wall is not thickened. Biliary system is non dilated. Pancreas enhances normally. Spleen is normal in size and enhancement. No adrenal nodules. Kidneys demonstrate normal size and enhancement, without hydronephrosis. Peritoneum and bowel: A mild to moderate amount of stool is seen within the colon. There is generalized wall thickening seen involving the small bowel. The small bowel loops are nondilated and measures 2.4 cm. No free fluid or air. Incidental note is made of a normal-appearing appendix. Nodes and vessels: No retroperitoneal or mesenteric adenopathy by size criteria. Aorta and inferior vena cava are normal in size. Atherosclerotic calcification is noted. Miscellaneous: No ventral hernias. PELVIS: Genitourinary: Bladder wall thickness is normal. The prostate gland is prominent, measuring 6.3 cm transversely. Miscellaneous: No inguinal hernias or adenopathy. Bones: No suspicious bony lesions. There is a chronic appearing anterior wedge deformity of L1, with 60% loss of height anteriorly. Mild grade 1 anterolisthesis is seen at L5-S1, with associated bilateral facet pars defects. No acute appearing vertebral body compression fractures. IMPRESSION: Generalized wall thickening is seen of the small bowel. Please consider enteritis. A mild to moderate amount of stool is seen within the colon. Normal appendix. 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 on 05/10/2019 at 10:50 Approved by: Bill Loera M.D. on 05/10/2019 at 10:56 ECG Data Attestation: I personally reviewed and interpreted this ECG as follows: Prior ECG tracings: not available for review Interpretation: Sinus rhythm Ventricular rate is 60 Normal axis Occasional PAC Normal QTC No ST T wave changes MDM Narrative Medical decision making narrative: Patient states that he feels much better after the fluids. CT scans consistent with enteritis and this is also consistent with his history and physical exam. Low suspicion for ACS. Is tolerating oral intake. No indication for surgical consultation. No indication for antibiotics. Will send home with nausea medication. We did discuss the potential expected course to include diarrhea over the next couple days. We discussed return precautions and follow-up instructions. He expressed understanding and agreement with plan. Discharge Plan Departure Patient Disposition: Home Clinical Impression: Enteritis Abdominal pain Qualifiers: Abdominal location: generalized Qualified Code(s): R10.84 - Generalized abdominal pain Instructions: DI for Enteritis Activity Restrictions/Additional Instructions: Be sure to increase your fluid intake. On Sunday contact your primary provider for follow-up. Use the nausea medication as needed to maintain your hydration. Return to the emergency department for any new or worsening symptoms Prescriptions: New ondansetron 4 mg tablet,disintegrating 4 mg PO Q6H PRN (Reason: nausea and vomiting) Qty: 10 RF: 0 No Action sulfamethoxazole-trimethoprim 800 MG/160 MG tablet 1 tab PO BID Qty: 42 RF: 0 Referrals: Violetta Clark MD [Primary Care Provider] -
[2019-05-10 10:41] LABS: Prothrombin Time 11.4 SECONDS (10.1-12.7)
[2019-05-10] MEDS: SODIUM CHLORIDE 0.9% 1,000 ML 1000 ML IV (10:41)
[2019-05-10 10:44] LABS: PTT Partial Thromboplastin Tim 29 SECONDS (26.4-36.2)
[2019-05-10 10:48] LABS: Alanine Aminotransferase 33 IU/L (21-72); Albumin 3.5 g/dL (3.5-5.0); Albumin Globulin Ratio 1.5 (1.0-2.8); Alkaline Phosphatase 58 U/L (38-126); Aspartate Aminotransferase 30 IU/L (17-59); BUN Creatinine Ratio 18.3 (6-22); Bilirubin Total 1.1 mg/dL (0.2-1.3); Blood Urea Nitrogen 22 mg/dL (9-20); Calcium 8.6 mg/dL (8.4-10.2); Carbon Dioxide 26 mmol/L (22-32); Chloride 104 mmol/L (98-107); Estimated Glomerular Filt Rate 57.8 mL/min (>60); Globulin 2.4 g/dL (1.7-4.1); Glucose 100 mg/dL (80-110); HEMOLYSIS < 15 (0-50); Lipase 43 U/L (23-300); Potassium 3.9 mmol/L (3.4-5.1); Sodium 138 mmol/L (137-145); Total Protein 5.9 g/dL (6.3-8.2)
[2019-05-10 10:51] LABS: Add Manual Diff / Slide Review NO; Basophils Absolute Auto 0 /uL (0-100); Basophils Percent Auto 0.9 % (0-2); Eosinophils Absolute Auto 100 /uL (0-450); Eosinophils Percent Auto 2.8 % (2-4); Hemoglobin 14.1 g/dL (13.5-17.5); Lymphocytes Absolute Auto 1100 /uL (1100-4500); Lymphocytes Percent Auto 31.3 % (25-40); Mean Corpuscular HGB Conc 33.6 % (30-36); Mean Corpuscular Hemoglobin 33.8 PG (26-34); Mean Corpuscular Volume 100.6 fL (80-100); Monocytes Absolute Auto 300 /uL (0-900); Monocytes Percent Auto 7.5 % (3-14); Neutrophils Absolute Auto 2100 /uL (1500-7000); Neutrophils Percent Auto 57.5 % (50-75); Platelet Count 40 X10^3/uL (150-400); Red Blood Cell Count 4.18 X10^6/uL (4.5-5.9); Red Cell Distribution Width 15.9 % (11.6-14.8); White Blood Cell Count 3.6 X10^3/uL (4.5-11.0)
[2019-05-10 10:59] LABS: Troponin I < 0.012 ng/mL (0.01-0.034)
[2019-05-10 11:03] VITALS: BP 98/59; PULSE 51; O2SAT 97
[2019-05-10 11:50] VITALS: BP 100/53; PULSE 58; RESP 16; O2SAT 97
[2019-05-10 12:52] VITALS: BP 100/54; PULSE 54; O2SAT 99
== END 2019-05-10 13:06 | disposition home or self-care (01) ==
PROVIDERS: Emergency Provider Emergency Medicine; Family Provider Internal Medicine Hematology & Oncology; PCP Internal Medicine
DX: K52.9 Noninfective gastroenteritis and colitis, unspecified (principal); R10.84 Generalized abdominal pain
CPT/HCPCS: 36415; 74177; 80053; 81003; 83690; 84484; 85025; 85610; 85730; 93005; 96360; 96361; 99283; 99285; Q9967

== ENCOUNTER → 2019-05-12 06:41 | Outpatient (CLI) | payer OTHER, SELFPAY ==
[2019-05-12 07:13] LABS: Basophils Absolute Auto 100 /uL (0-100); Basophils Percent Auto 1.9 % (0-2); Eosinophils Absolute Auto 100 /uL (0-450); Eosinophils Percent Auto 2.8 % (2-4); Hematocrit 44.7 % (41-53); Lymphocytes Absolute Auto 1700 /uL (1100-4500); Lymphocytes Percent Auto 33.3 % (25-40); Mean Corpuscular HGB Conc 33.5 % (30-36); Mean Corpuscular Hemoglobin 33.7 PG (26-34); Mean Corpuscular Volume 100.6 fL (80-100); Monocytes Absolute Auto 400 /uL (0-900); Monocytes Percent Auto 8.7 % (3-14); Neutrophils Absolute Auto 2700 /uL (1500-7000); Neutrophils Percent Auto 53.3 % (50-75); Red Blood Cell Count 4.44 X10^6/uL (4.5-5.9); Red Cell Distribution Width 16.5 % (11.6-14.8)
[2019-05-12 07:14] LABS: Add Manual Diff / Slide Review SLIDE REVIEW
[2019-05-12 07:35] LABS: Anisocytosis 1+; Ovalocytes 1+
[2019-05-12 07:36] LABS: Platelet Estimate Decreased on smear
[2019-05-12 07:37] LABS: Platelet Count 46 X10^3/uL (150-400)
== END ==
PROVIDERS: Family Provider Internal Medicine Hematology & Oncology; PCP Internal Medicine; Visit Provider Internal Medicine
DX: D69.6 Thrombocytopenia, unspecified (principal)
CPT/HCPCS: 36415; 85025

== ENCOUNTER → 2019-06-10 06:44 | Outpatient (CLI) | payer OTHER, SELFPAY ==
[2019-06-10 07:12] LABS: Add Manual Diff / Slide Review NO; Basophils Absolute Auto 100 /uL (0-100); Basophils Percent Auto 1.3 % (0-2); Eosinophils Absolute Auto 100 /uL (0-450); Eosinophils Percent Auto 2.7 % (2-4); Hemoglobin 14.5 g/dL (13.5-17.5); Lymphocytes Absolute Auto 1600 /uL (1100-4500); Mean Corpuscular HGB Conc 33.7 % (30-36); Mean Corpuscular Hemoglobin 34.2 PG (26-34); Mean Corpuscular Volume 101.6 fL (80-100); Monocytes Absolute Auto 400 /uL (0-900); Monocytes Percent Auto 8.7 % (3-14); Neutrophils Absolute Auto 2600 /uL (1500-7000); Neutrophils Percent Auto 53.3 % (50-75); Red Blood Cell Count 4.24 X10^6/uL (4.5-5.9); Red Cell Distribution Width 16.5 % (11.6-14.8); White Blood Cell Count 4.8 X10^3/uL (4.5-11.0)
[2019-06-10 07:51] LABS: Platelet Count 45 X10^3/uL (150-400)
== END ==
PROVIDERS: Family Provider Internal Medicine Hematology & Oncology; PCP Internal Medicine; Visit Provider Internal Medicine
DX: D69.6 Thrombocytopenia, unspecified (principal)
CPT/HCPCS: 36415; 85025

== ENCOUNTER 2019-06-17 12:00 | Outpatient (RCR) | payer OTHER, SELFPAY ==
--- NOTE | 2019-04-24 12:45 | PT.OTN ---
Current Diagnoses Other peripheral vertigo, right ear (04/24/19) Other peripheral vertigo, left ear (04/24/19) Other abnormalities of gait and mobility (04/24/19) Dizziness and giddiness (04/24/19) Physical Therapy Treatment Note PT-OP-A Visit Information Start: 04/24/19 12:08 Freq: Status: Active Protocol: Document 04/24/19 11:15 DCW (Rec: 04/24/19 12:45 DCW [id number]) Out-Patient Physical Therapy Visit Information Visit Information Visit Type Initial Evaluation Visit Start Time 11:15 Visit Stop Time 12:05 Total Visit Minutes 50 Visit Number 1 Number of PRACTICE ADVISOR Visits 0 Evaluation Information Evaluation Date 04/24/19 PT-OP-B Current Condition Start: 04/24/19 12:08 Freq: Status: Active Protocol: Document 04/24/19 11:15 DCW (Rec: 04/24/19 12:45 DCW [id number]) Current Condition History of Current Condition Onset Date Multi-month history Current Complaints Progressing imbalance, hx Meniere's History of Current Condition Pt is an 84 year old male complaining of a multi-month history of worsening spontaneous imbalance and nausea. Pt reports episodes come and go, but mainly occur when he is up walking around, particularly in low-light situations. Pt does have a history of Meniere's Disease, which has not bothered him for the past nine years, following, per ENT notes, he was left with a nonfunctional right ear. 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 Pt notes that a few weeks ago, he had a 24 hour episode of dizziness, and he slept for 13 hours straight, more than double his normal six hours. Pt denies recent hearing changes, diplopia, dysarthria, discoordination, or decreased mentation/consciousness. Pt denies hx of HTN, hyperlipidemia, diabetes, arrhythmia, head trauma, seizure, migraines, CVA, or excessive smoking or drinking. 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 Prior Functional Status Baseline Function- ADL's Independent Baseline Function- Mobility Independent Current Functional Impairments (Reported) Functional Limitations- Mobility/Gait Difficulty with gait in darkness or decreased visual imput, occasional imbalance when standing/moving. 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 PT-OP-C Subjective Start: 04/24/19 12:08 Freq: Status: Active Protocol: Document 04/24/19 11:15 DCW (Rec: 04/24/19 12:45 DCW [id number]) OP-PT Subjective Patient Comments Patient Comments Pt reports symptoms seem to be worsening a bit milan the last few months. Patient Reported Progress Worse Patient Questionnaires ABC- Activity Specific Balance Confidence Scale ABC Score 78.13% ABC Functional Impairment 20 to <40% Impaired (Score 61- 80) Dizziness Handicap Inventory DHI Score 42% DHI Functional Impairment 40 to 59% Impaired (Score 40- 59) PT-OP-D Balance Start: 04/24/19 12:08 Freq: Status: Active Protocol: Document 04/24/19 11:15 DCW (Rec: 04/24/19 12:45 DCW [id number]) Balance Tests CTSIB CTSIB Position 1 Mild Sway CTSIB Position 2 Moderate Sway CTSIB Position 3 Mild Sway CTSIB Position 4 Moderate Sway CTSIB Position 5 Fall Reaction CTSIB Position 6 Fall Reaction PT-OP-O Vestibular Start: 04/24/19 12:08 Freq: Status: Active Protocol: Document 04/24/19 11:15 DCW (Rec: 04/24/19 12:45 DCW [id number]) Vestibular Assessment Screening Tests Vestibular Artery Screen Negative Auditory Tests Howell Test Positive Rinne Test Negative Air Conduction Results Left Greater Visual Testing Smooth Pursuits Horizontal WNL Smooth Pursuits Vertical WNL Saccades Horizontal WNL Gaze Evoked Nystagmus With Fixation Negative Gaze Evoked Nystagmus Without Fixation Negative Heave Test Positive Bilateral Thrust Head Positive Bilateral Head Shake Positive Comments Vestibular Comments Auditory testing suggestive of right-sided deafness, as expected. Thrust and heave tests positive bilaterally, however much more significantly positive to R. Shake test positive to the right PT-OP-Q Treatments Start: 04/24/19 12:08 Freq: Status: Active Protocol: Document 04/24/19 11:15 DCW (Rec: 04/24/19 12:45 DCW [id number]) Neuro Re-Education Treatment Vestibular Rehabilitation Corrective Saccades Details Eyes, then head Distance From Target Arm length Speed as tolerated Position seated X2 Viewing Details Head and target moving in opposite directions Distance From Target Arm length Speed as tolerated Position seated X1 Viewing Details Head moving, target still Distance From Target Arm length Speed as tolerated Position seated VOR Retraining Details Head and target moving together Distance From Target Arm length Speed as tolerated Position seated PT-OP-T Assessment and Plan Start: 04/24/19 12:08 Freq: Status: Active Protocol: Document 04/24/19 11:15 DCW (Rec: 04/24/19 12:45 DCW [id number]) Physical Therapy Assessment Rehab Potential Rehabilitation Potential Good Evaluation Complexity Number of Personal Factors/Comorbidities 3 or More Number of Body Systems Impaired 3 Clinical Presentation at Evaluation Unstable Impairments Impairments Balance,Functional Mobility, Gait,Sensation,Vestibular, Visual Motor Other Concerns Barriers to Rehabilitation Hx Meniere's, nonfunctional right ear, visual problems ( Glaucoma), mild neuropathy Goals Three Impairment Pt has fall reaction in positions V and on CTSIB Clay Artist Goal (LTG) Pt to tolerate all positions of the CTSIB with moderate sway or better LTG Duration 06/24/19 Two Impairment Pt has difficulty walking to his bathroom at night Assisted Goal (LTG) Pt to report no feeling of imbalance when walking to his bathroom for two straight weeks LTG Duration 06/24/19 One Impairment Pt does not have an appropriate home exercise program Short Term Goal (STG) Pt to be independent and compliant with an appropriate HEP STG Duration 05/24/19 Assessment Summary Assessment Pt presents with multi- factorial balance deficits. Pt has a history of Meniere's disease, which has left him with a nonfunctional right ear , and his left ear also displays a decline in function , which may be age-related, or may be due to a mild vestibular neuritis, which may have been the cause of his stated 24 hour-long episode of imbalance, nausea, and fatigue a number of weeks ago. On top of his inner ear dysfunction, he also has a history of occasional numbness , and tactile testing today shows a few areas on his feet which exhibited decreased sensation. Additionally, pt has visual difficulty, with right-sided glaucoma decreasing his vision. Pt's biggest issues appear to occur when his is in a situation of low visual input, such as walking to his bathroom at night. Pt should benefit from skilled therapy focusing on vestibular rehabilitation, balance training, and neuromuscular reeducation. Physical Therapy Plan Frequency and Duration Frequency of Treatment 2x/Week Duration of Treatment 8 weeks Plan of Care Start Date 04/24/19 Plan of Care End Date 06/19/19 Therapeutic Interventions Therapeutic Interventions Balance Training,Coordination Training,Gait Training, Neuromuscular Re-education, Patient/Caregiver Education, Self-Care/Home Management, Therapeutic Exercises, Vestibular Rehabilitation Next Visit Focus/Plan Next Note Type Treatment Note Next Visit Plan Balance training, vestibular rehabilitation, NMR
--- NOTE | 2019-04-24 12:49 | PT.OIE ---
Current Diagnoses Other peripheral vertigo, right ear (04/24/19) Other peripheral vertigo, left ear (04/24/19) Other abnormalities of gait and mobility (04/24/19) Dizziness and giddiness (04/24/19) Visit Care Team Role Provider Type Violetta Clark MD Primary Care Provider Physician Specialty: Internal Medicine Address: [address] [place] [address], [address] Email: [email or web address] Robby Finch Family Provider Non-Staff Specialty: Medical Address: [address] [place] [address] [address], [place], [address] Email: Danny Ortega MD Attending Provider Physician Specialty: Ear, Nose, Throat Address: [address] [place] [address], [address] Email: [email or web address] Physical Therapy Initial Evaluation PT-OP-A Visit Information Start: 04/24/19 12:08 Freq: Status: Active Protocol: Document 04/24/19 11:15 DCW (Rec: 04/24/19 12:45 DCW [id number]) Out-Patient Physical Therapy Visit Information Visit Information Visit Type Initial Evaluation Visit Start Time 11:15 Visit Stop Time 12:05 Total Visit Minutes 50 Visit Number 1 Number of PERSONNEL CLERKS SUPERVISOR Visits 0 Evaluation Information Evaluation Date 04/24/19 PT-OP-B Current Condition Start: 04/24/19 12:08 Freq: Status: Active Protocol: Document 04/24/19 11:15 DCW (Rec: 04/24/19 12:45 DCW [id number]) Current Condition History of Current Condition Onset Date Multi-month history Current Complaints Progressing imbalance, hx Meniere's History of Current Condition Pt is an 84 year old male complaining of a multi-month history of worsening spontaneous imbalance and nausea. Pt reports episodes come and go, but mainly occur when he is up walking around, particularly in low-light situations. Pt does have a history of Meniere's Disease, which has not bothered him for the past nine years, following, per ENT notes, he was left with a nonfunctional right ear. 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 Pt notes that a few weeks ago, he had a 24 hour episode of dizziness, and he slept for 13 hours straight, more than double his normal six hours. Pt denies recent hearing changes, diplopia, dysarthria, discoordination, or decreased mentation/consciousness. Pt denies hx of HTN, hyperlipidemia, diabetes, arrhythmia, head trauma, seizure, migraines, CVA, or excessive smoking or drinking. 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 Prior Functional Status Baseline Function- ADL's Independent Baseline Function- Mobility Independent Current Functional Impairments (Reported) Functional Limitations- Mobility/Gait Difficulty with gait in darkness or decreased visual imput, occasional imbalance when standing/moving. 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 PT-OP-C Subjective Start: 04/24/19 12:08 Freq: Status: Active Protocol: Document 04/24/19 11:15 DCW (Rec: 04/24/19 12:45 DCW [id number]) OP-PT Subjective Patient Comments Patient Comments Pt reports symptoms seem to be worsening a bit milan the last few months. Patient Reported Progress Worse Patient Questionnaires ABC- Activity Specific Balance Confidence Scale ABC Score 78.13% ABC Functional Impairment 20 to <40% Impaired (Score 61- 80) Dizziness Handicap Inventory DHI Score 42% DHI Functional Impairment 40 to 59% Impaired (Score 40- 59) PT-OP-D Balance Start: 04/24/19 12:08 Freq: Status: Active Protocol: Document 04/24/19 11:15 DCW (Rec: 04/24/19 12:45 DCW [id number]) Balance Tests CTSIB CTSIB Position 1 Mild Sway CTSIB Position 2 Moderate Sway CTSIB Position 3 Mild Sway CTSIB Position 4 Moderate Sway CTSIB Position 5 Fall Reaction CTSIB Position 6 Fall Reaction PT-OP-H Neuro Start: 04/24/19 12:25 Freq: Status: Active Protocol: Document 04/24/19 11:15 DCW (Rec: 04/24/19 12:48 DCW [id number]) Sensation Evaluation Location Details Right Foot Light Touch Impaired Protective Sensation Impaired Proprioception (Position) Intact/Normal Kinesthesia (Movement) Intact/Normal Left Foot Light Touch Impaired Protective Sensation Impaired Proprioception (Position) Intact/Normal Kinesthesia (Movement) Intact/Normal PT-OP-O Vestibular Start: 04/24/19 12:08 Freq: Status: Active Protocol: Document 04/24/19 11:15 DCW (Rec: 04/24/19 12:45 DCW [id number]) Vestibular Assessment Screening Tests Vestibular Artery Screen Negative Auditory Tests Howell Test Positive Rinne Test Negative Air Conduction Results Left Greater Visual Testing Smooth Pursuits Horizontal WNL Smooth Pursuits Vertical WNL Saccades Horizontal WNL Gaze Evoked Nystagmus With Fixation Negative Gaze Evoked Nystagmus Without Fixation Negative Heave Test Positive Bilateral Thrust Head Positive Bilateral Head Shake Positive Comments Vestibular Comments Auditory testing suggestive of right-sided deafness, as expected. Thrust and heave tests positive bilaterally, however much more significantly positive to R. Shake test positive to the right PT-OP-Q Treatments Start: 04/24/19 12:08 Freq: Status: Active Protocol: Document 04/24/19 11:15 DCW (Rec: 04/24/19 12:45 [facility] [id number]) Neuro Re-Education Treatment Vestibular Rehabilitation Corrective Saccades Details Eyes, then head Distance From Target Arm length Speed as tolerated Position seated X2 Viewing Details Head and target moving in opposite directions Distance From Target Arm length Speed as tolerated Position seated X1 Viewing Details Head moving, target still Distance From Target Arm length Speed as tolerated Position seated VOR Retraining Details Head and target moving together Distance From Target Arm length Speed as tolerated Position seated PT-OP-T Assessment and Plan Start: 04/24/19 12:08 Freq: Status: Active Protocol: Document 04/24/19 11:15 DCW (Rec: 04/24/19 12:45 [facility] [id number]) Physical Therapy Assessment Rehab Potential Rehabilitation Potential Good Evaluation Complexity Number of Personal Factors/Comorbidities 3 or More Number of Body Systems Impaired 3 Clinical Presentation at Evaluation Unstable Impairments Impairments Balance,Functional Mobility, Gait,Sensation,Vestibular, Visual Motor Other Concerns Barriers to Rehabilitation Hx Meniere's, nonfunctional right ear, visual problems ( Glaucoma), mild neuropathy Goals Three Impairment Pt has fall reaction in positions V and on CTSIB Mcc Goal (LTG) Pt to tolerate all positions of the CTSIB with moderate sway or better LTG Duration 06/24/19 Two Impairment Pt has difficulty walking to his bathroom at night Route Driver [employer] Goal (LTG) Pt to report no feeling of imbalance when walking to his bathroom for two straight weeks LTG Duration 06/24/19 One Impairment Pt does not have an appropriate home exercise program Short Term Goal (STG) Pt to be independent and compliant with an appropriate HEP STG Duration 05/24/19 Assessment Summary Assessment Pt presents with multi- factorial balance deficits. Pt has a history of Meniere's disease, which has left him with a nonfunctional right ear , and his left ear also displays a decline in function , which may be age-related, or may be due to a mild vestibular neuritis, which may have been the cause of his stated 24 hour-long episode of imbalance, nausea, and fatigue a number of weeks ago. On top of his inner ear dysfunction, he also has a history of occasional numbness , and tactile testing today shows a few areas on his feet which exhibited decreased sensation. Additionally, pt has visual difficulty, with right-sided glaucoma decreasing his vision. Pt's biggest issues appear to occur when his is in a situation of low visual input, such as walking to his bathroom at night. Pt should benefit from skilled therapy focusing on vestibular rehabilitation, balance training, and neuromuscular reeducation. Physical Therapy Plan Frequency and Duration Frequency of Treatment 2x/Week Duration of Treatment 8 weeks Plan of Care Start Date 04/24/19 Plan of Care End Date 06/19/19 Therapeutic Interventions Therapeutic Interventions Balance Training,Coordination Training,Gait Training, Neuromuscular Re-education, Patient/Caregiver Education, Self-Care/Home Management, Therapeutic Exercises, Vestibular Rehabilitation Next Visit Focus/Plan Next Note Type Treatment Note Next Visit Plan Balance training, vestibular rehabilitation, NMR
--- NOTE | 2019-04-24 12:49 | PT.OPPOC ---
Current Diagnoses Other peripheral vertigo, right ear (04/24/19) Other peripheral vertigo, left ear (04/24/19) Other abnormalities of gait and mobility (04/24/19) Dizziness and giddiness (04/24/19) Visit Care Team Role Provider Type Violetta Clark MD Primary Care Provider Physician Specialty: Internal Medicine Address: [address] [place] [address], [address] Email: [email or web address] Robby Finch Family Provider Non-Staff Specialty: Medical Address: [address] [place] [address] [address], [place], [address] Email: Danny Ortega MD Attending Provider Physician Specialty: Ear, Nose, Throat Address: [address] [place] [address], [address] Email: [email or web address] Plan Of Care PT-OP-T Assessment and Plan Start: 04/24/19 12:08 Freq: Status: Active Protocol: Document 04/24/19 11:15 DCW (Rec: 04/24/19 12:45 DCW [id number]) Physical Therapy Assessment Rehab Potential Rehabilitation Potential Good Evaluation Complexity Number of Personal Factors/Comorbidities 3 or More Number of Body Systems Impaired 3 Clinical Presentation at Evaluation Unstable Impairments Impairments Balance,Functional Mobility, Gait,Sensation,Vestibular, Visual Motor Other Concerns Barriers to Rehabilitation Hx Meniere's, nonfunctional right ear, visual problems ( Glaucoma), mild neuropathy Goals Three Impairment Pt has fall reaction in positions V and on CTSIB Nursing Home Goal (LTG) Pt to tolerate all positions of the CTSIB with moderate sway or better LTG Duration 06/24/19 Two Impairment Pt has difficulty walking to his bathroom at night Nursing Home Goal (LTG) Pt to report no feeling of imbalance when walking to his bathroom for two straight weeks LTG Duration 06/24/19 One Impairment Pt does not have an appropriate home exercise program Short Term Goal (STG) Pt to be independent and compliant with an appropriate HEP STG Duration 05/24/19 Assessment Summary Assessment Pt presents with multi- factorial balance deficits. Pt has a history of Meniere's disease, which has left him with a nonfunctional right ear , and his left ear also displays a decline in function , which may be age-related, or may be due to a mild vestibular neuritis, which may have been the cause of his stated 24 hour-long episode of imbalance, nausea, and fatigue a number of weeks ago. On top of his inner ear dysfunction, he also has a history of occasional numbness , and tactile testing today shows a few areas on his feet which exhibited decreased sensation. Additionally, pt has visual difficulty, with right-sided glaucoma decreasing his vision. Pt's biggest issues appear to occur when his is in a situation of low visual input, such as walking to his bathroom at night. Pt should benefit from skilled therapy focusing on vestibular rehabilitation, balance training, and neuromuscular reeducation. Physical Therapy Plan Frequency and Duration Frequency of Treatment 2x/Week Duration of Treatment 8 weeks Plan of Care Start Date 04/24/19 Plan of Care End Date 06/19/19 Therapeutic Interventions Therapeutic Interventions Balance Training,Coordination Training,Gait Training, Neuromuscular Re-education, Patient/Caregiver Education, Self-Care/Home Management, Therapeutic Exercises, Vestibular Rehabilitation Next Visit Focus/Plan Next Note Type Treatment Note Next Visit Plan Balance training, vestibular rehabilitation, NMR Plan of Care Dates Plan of Care Start Date 04/24/19 Plan of Care End Date 06/19/19
--- NOTE | 2019-05-21 12:53 | PT.OTN ---
Current Diagnoses Other peripheral vertigo, right ear (05/21/19) Other peripheral vertigo, left ear (05/21/19) Other abnormalities of gait and mobility (05/21/19) Dizziness and giddiness (05/21/19) Physical Therapy Treatment Note PT-OP-A Visit Information Start: 04/24/19 12:08 Freq: Status: Active Protocol: Document 05/21/19 12:00 DCW (Rec: 05/21/19 12:53 DCW [id number]) Out-Patient Physical Therapy Visit Information Visit Information Visit Type Treatment Note Visit Start Time 12:00 Visit Stop Time 12:40 Total Visit Minutes 40 Visit Number 2 Number of [employer]OPER Visits 0 Evaluation Information Evaluation Date 04/24/19 PT-OP-B Current Condition Start: 04/24/19 12:08 Freq: Status: Active Protocol: Document 04/24/19 11:15 DCW (Rec: 04/24/19 12:45 DCW [id number]) Current Condition History of Current Condition Onset Date Multi-month history Current Complaints Progressing imbalance, hx Meniere's History of Current Condition Pt is an 84 year old male complaining of a multi-month history of worsening spontaneous imbalance and nausea. Pt reports episodes come and go, but mainly occur when he is up walking around, particularly in low-light situations. Pt does have a history of Meniere's Disease, which has not bothered him for the past nine years, following, per ENT notes, he was left with a nonfunctional right ear. 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 Pt notes that a few weeks ago, he had a 24 hour episode of dizziness, and he slept for 13 hours straight, more than double his normal six hours. Pt denies recent hearing changes, diplopia, dysarthria, discoordination, or decreased mentation/consciousness. Pt denies hx of HTN, hyperlipidemia, diabetes, arrhythmia, head trauma, seizure, migraines, CVA, or excessive smoking or drinking. 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 Prior Functional Status Baseline Function- ADL's Independent Baseline Function- Mobility Independent Current Functional Impairments (Reported) Functional Limitations- Mobility/Gait Difficulty with gait in darkness or decreased visual imput, occasional imbalance when standing/moving. 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 PT-OP-C Subjective Start: 04/24/19 12:08 Freq: Status: Active Protocol: Document 05/21/19 12:00 DCW (Rec: 05/21/19 12:53 DCW [id number]) OP-PT Subjective Patient Comments Patient Comments Pt has struggled with his HEP, makes him very dizzy for the remainder of his day. Admits he does not do it very frequently, because it then limits what he can do the rest of the day. PT-OP-D Balance Start: 04/24/19 12:08 Freq: Status: Active Protocol: Document 04/24/19 11:15 DCW (Rec: 04/24/19 12:45 DCW [id number]) Balance Tests CTSIB CTSIB Position 1 Mild Sway CTSIB Position 2 Moderate Sway CTSIB Position 3 Mild Sway CTSIB Position 4 Moderate Sway CTSIB Position 5 Fall Reaction CTSIB Position 6 Fall Reaction PT-OP-H Neuro Start: 04/24/19 12:25 Freq: Status: Active Protocol: Document 04/24/19 11:15 DCW (Rec: 04/24/19 12:48 DCW [id number]) Sensation Evaluation Location Details Right Foot Light Touch Impaired Protective Sensation Impaired Proprioception (Position) Intact/Normal Kinesthesia (Movement) Intact/Normal Left Foot Light Touch Impaired Protective Sensation Impaired Proprioception (Position) Intact/Normal Kinesthesia (Movement) Intact/Normal PT-OP-O Vestibular Start: 04/24/19 12:08 Freq: Status: Active Protocol: Document 04/24/19 11:15 DCW (Rec: 04/24/19 12:45 DCW [id number]) Vestibular Assessment Screening Tests Vestibular Artery Screen Negative Auditory Tests Howell Test Positive Rinne Test Negative Air Conduction Results Left Greater Visual Testing Smooth Pursuits Horizontal WNL Smooth Pursuits Vertical WNL Saccades Horizontal WNL Gaze Evoked Nystagmus With Fixation Negative Gaze Evoked Nystagmus Without Fixation Negative Heave Test Positive Bilateral Thrust Head Positive Bilateral Head Shake Positive Comments Vestibular Comments Auditory testing suggestive of right-sided deafness, as expected. Thrust and heave tests positive bilaterally, however much more significantly positive to R. Shake test positive to the right PT-OP-Q Treatments Start: 04/24/19 12:08 Freq: Status: Active Protocol: Document 05/21/19 12:00 DCW (Rec: 05/21/19 12:53 DCW [id number]) Neuro Re-Education Treatment Vestibular Rehabilitation VOR Retraining Details Head and target moving together Distance From Target Laser on wall Speed as tolerated Position Standing Self-Care/Home Management Treatment Education Patient Education Home Exercise Program,Safety Other Education Reviewed HEP, discussed anatomy and physiology of inner ear. PT-OP-T Assessment and Plan Start: 04/24/19 12:08 Freq: Status: Active Protocol: Document 05/21/19 12:00 DCW (Rec: 05/21/19 12:53 DCW [id number]) Physical Therapy Assessment Impairments Impairments Balance,Functional Mobility, Gait,Sensation,Vestibular, Visual Motor Other Concerns Barriers to Rehabilitation Hx Meniere's, nonfunctional right ear, visual problems ( Glaucoma), mild neuropathy Goals Three Impairment Pt has fall reaction in positions V and on CTSIB Lab Coordinator Goal (LTG) Pt to tolerate all positions of the CTSIB with moderate sway or better LTG Duration 06/24/19 Two Impairment Pt has difficulty walking to his bathroom at night Lab Coordinator Goal (LTG) Pt to report no feeling of imbalance when walking to his bathroom for two straight weeks LTG Duration 06/24/19 One Impairment Pt does not have an appropriate home exercise program Short Term Goal (STG) Pt to be independent and compliant with an appropriate HEP STG Duration 05/24/19 Assessment Summary Assessment Pt instructed to limit HEP to X1 and VOR retraining. Most of today was spent discussing pt 's difficulty with his HEP, ideas how to function day-to- day, possibilities of recovery , plans for rehab, and review of his limitations Physical Therapy Plan Frequency and Duration Frequency of Treatment 2x/Week Duration of Treatment 8 weeks Plan of Care Start Date 04/24/19 Plan of Care End Date 06/19/19 Therapeutic Interventions Therapeutic Interventions Balance Training,Coordination Training,Gait Training, Neuromuscular Re-education, Patient/Caregiver Education, Self-Care/Home Management, Therapeutic Exercises, Vestibular Rehabilitation Next Visit Focus/Plan Next Note Type Treatment Note Next Visit Plan Balance training, vestibular rehabilitation, NMR
--- NOTE | 2019-06-17 12:49 | PT.OTN ---
Current Diagnoses Other peripheral vertigo, right ear (06/17/19) Other peripheral vertigo, left ear (06/17/19) Other abnormalities of gait and mobility (06/17/19) Dizziness and giddiness (06/17/19) Physical Therapy Treatment Note PT-OP-A Visit Information Start: 04/24/19 12:08 Freq: Status: Active Protocol: Document 06/17/19 12:00 DCW (Rec: 06/17/19 12:48 DCW [id number]) Out-Patient Physical Therapy Visit Information Visit Information Visit Type Treatment Note Visit Start Time 12:00 Visit Stop Time 12:40 Total Visit Minutes 40 Visit Number 3 Number of PALLIATIVE MEDICINE PHYSICIAN Visits 0 Evaluation Information Evaluation Date 04/24/19 PT-OP-B Current Condition Start: 04/24/19 12:08 Freq: Status: Active Protocol: Document 04/24/19 11:15 DCW (Rec: 04/24/19 12:45 DCW [id number]) Current Condition History of Current Condition Onset Date Multi-month history Current Complaints Progressing imbalance, hx Meniere's History of Current Condition Pt is an 84 year old male complaining of a multi-month history of worsening spontaneous imbalance and nausea. Pt reports episodes come and go, but mainly occur when he is up walking around, particularly in low-light situations. Pt does have a history of Meniere's Disease, which has not bothered him for the past nine years, following, per ENT notes, he was left with a nonfunctional right ear. 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 Pt notes that a few weeks ago, he had a 24 hour episode of dizziness, and he slept for 13 hours straight, more than double his normal six hours. Pt denies recent hearing changes, diplopia, dysarthria, discoordination, or decreased mentation/consciousness. Pt denies hx of HTN, hyperlipidemia, diabetes, arrhythmia, head trauma, seizure, migraines, CVA, or excessive smoking or drinking. 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 Prior Functional Status Baseline Function- ADL's Independent Baseline Function- Mobility Independent Current Functional Impairments (Reported) Functional Limitations- Mobility/Gait Difficulty with gait in darkness or decreased visual imput, occasional imbalance when standing/moving. 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 PT-OP-C Subjective Start: 04/24/19 12:08 Freq: Status: Active Protocol: Document 06/17/19 12:00 DCW (Rec: 06/17/19 12:48 DCW [id number]) OP-PT Subjective Patient Comments Patient Comments Pt notes that things are getting gradually better. Still not great, but I'm heading in the right direction . PT-OP-D Balance Start: 04/24/19 12:08 Freq: Status: Active Protocol: Document 04/24/19 11:15 DCW (Rec: 04/24/19 12:45 DCW [id number]) Balance Tests CTSIB CTSIB Position 1 Mild Sway CTSIB Position 2 Moderate Sway CTSIB Position 3 Mild Sway CTSIB Position 4 Moderate Sway CTSIB Position 5 Fall Reaction CTSIB Position 6 Fall Reaction PT-OP-H Neuro Start: 04/24/19 12:25 Freq: Status: Active Protocol: Document 06/17/19 12:00 DCW (Rec: 06/17/19 12:48 DCW [id number]) Sensation Evaluation Location Details Right Foot Light Touch Impaired Protective Sensation Impaired Proprioception (Position) Intact/Normal Kinesthesia (Movement) Intact/Normal Left Foot Light Touch Impaired Protective Sensation Impaired Proprioception (Position) Intact/Normal Kinesthesia (Movement) Intact/Normal PT-OP-O Vestibular Start: 04/24/19 12:08 Freq: Status: Active Protocol: Document 06/17/19 12:00 DCW (Rec: 06/17/19 12:48 DCW [id number]) Vestibular Assessment Visual Testing Smooth Pursuits Horizontal WNL Smooth Pursuits Vertical WNL Saccades Horizontal WNL Gaze Evoked Nystagmus With Fixation Negative Gaze Evoked Nystagmus Without Fixation Negative Heave Test Positive Bilateral Thrust Head Positive Bilateral Head Shake Positive PT-OP-Q Treatments Start: 04/24/19 12:08 Freq: Status: Active Protocol: Document 06/17/19 12:00 DCW (Rec: 06/17/19 12:48 DCW [id number]) Gym Equipment Shuttle Balance Red Details Wide YULIA, Staggered Stance Neuro Re-Education Treatment Balance Activities Hurdles Details Hurdles/Foam Comments Staggered, Tandem, Side- stepping EC Ambulation Details Ambulation /c eyes closed Amb /c heat turns Comments horizontal/vertical Tandem Amb Details Tandem Ambulation Surface firm Vestibular Rehabilitation Corrective Saccades Details Eyes, then head Distance From Target Arm length Speed as tolerated Position seated X2 Viewing Details Head and target moving in opposite directions Distance From Target Arm length Speed as tolerated Position seated X1 Viewing Details Head moving, target still Distance From Target Arm length Speed as tolerated Position seated VOR Retraining Details Head and target moving together Distance From Target Arm length Speed as tolerated Position seated Self-Care/Home Management Treatment Education Patient Education Home Exercise Program,Safety Other Education Reviewed HEP, discussed anatomy and physiology of inner ear. PT-OP-T Assessment and Plan Start: 04/24/19 12:08 Freq: Status: Active Protocol: Document 06/17/19 12:00 DCW (Rec: 06/17/19 12:48 DCW [id number]) Physical Therapy Assessment Impairments Impairments Balance,Functional Mobility, Gait,Sensation,Vestibular, Visual Motor Other Concerns Barriers to Rehabilitation Hx Meniere's, nonfunctional right ear, visual problems ( Glaucoma), mild neuropathy Goals Three Impairment Pt has fall reaction in positions V and on CTSIB [place] Goal (LTG) Pt to tolerate all positions of the CTSIB with moderate sway or better LTG Duration 09/01/19 Two Impairment Pt has difficulty walking to his bathroom at night Long-Term Goal (LTG) Pt to report no feeling of imbalance when walking to his bathroom for two straight weeks LTG Duration 09/01/19 One Impairment Pt does not have an appropriate home exercise program Short Term Goal (STG) Pt to be independent and compliant with an appropriate HEP STG Duration 07/28/19 Assessment Summary Assessment Pt notes that subjectively, he feels like he has improved some. Has not been experiencing the same dizziness when first waking up in the morning, and has been tolerating the visual exercises much better. Physical Therapy Plan Frequency and Duration Frequency of Treatment 1x/Week Duration of Treatment 12 weeks Plan of Care Start Date 06/17/19 Plan of Care End Date 09/01/19 Therapeutic Interventions Therapeutic Interventions Balance Training,Coordination Training,Gait Training, Neuromuscular Re-education, Patient/Caregiver Education, Self-Care/Home Management, Therapeutic Exercises, Vestibular Rehabilitation Next Visit Focus/Plan Next Note Type Treatment Note Next Visit Plan Balance training, vestibular rehabilitation, NMR
--- NOTE | 2019-06-17 12:49 | PT.OPPOC ---
Current Diagnoses Other peripheral vertigo, right ear (06/17/19) Other peripheral vertigo, left ear (06/17/19) Other abnormalities of gait and mobility (06/17/19) Dizziness and giddiness (06/17/19) Visit Care Team Role Provider Type Violetta Clark MD Primary Care Provider Physician Specialty: Internal Medicine Address: [address] [place] [address], [id number] Email: [email or web address] Robby Finch Family Provider Non-Staff Specialty: Medical Address: [address] [place] [address] [address], [place], [address] Email: Danny Ortega MD Attending Provider Physician Specialty: Ear, Nose, Throat Address: [address] [place] [address], [id number] Email: [email or web address] Plan Of Care PT-OP-T Assessment and Plan Start: 04/24/19 12:08 Freq: Status: Active Protocol: Document 06/17/19 12:00 DCW (Rec: 06/17/19 12:48 DCW [id number]) Physical Therapy Assessment Impairments Impairments Balance,Functional Mobility, Gait,Sensation,Vestibular, Visual Motor Other Concerns Barriers to Rehabilitation Hx Meniere's, nonfunctional right ear, visual problems ( Glaucoma), mild neuropathy Goals Three Impairment Pt has fall reaction in positions V and on CTSIB Alf Goal (LTG) Pt to tolerate all positions of the CTSIB with moderate sway or better LTG Duration 09/01/19 Two Impairment Pt has difficulty walking to his bathroom at night Alf Goal (LTG) Pt to report no feeling of imbalance when walking to his bathroom for two straight weeks LTG Duration 09/01/19 One Impairment Pt does not have an appropriate home exercise program Short Term Goal (STG) Pt to be independent and compliant with an appropriate HEP STG Duration 07/28/19 Assessment Summary Assessment Pt notes that subjectively, he feels like he has improved some. Has not been experiencing the same dizziness when first waking up in the morning, and has been tolerating the visual exercises much better. Physical Therapy Plan Frequency and Duration Frequency of Treatment 1x/Week Duration of Treatment 12 weeks Plan of Care Start Date 06/17/19 Plan of Care End Date 09/01/19 Therapeutic Interventions Therapeutic Interventions Balance Training,Coordination Training,Gait Training, Neuromuscular Re-education, Patient/Caregiver Education, Self-Care/Home Management, Therapeutic Exercises, Vestibular Rehabilitation Next Visit Focus/Plan Next Note Type Treatment Note Next Visit Plan Balance training, vestibular rehabilitation, NMR Plan of Care Dates Plan of Care Start Date 06/17/19 Plan of Care End Date 09/01/19
--- NOTE | 2019-07-02 14:06 | PT.OPDS ---
Current Diagnoses Other peripheral vertigo, right ear (06/17/19) Other peripheral vertigo, left ear (06/17/19) Other abnormalities of gait and mobility (06/17/19) Dizziness and giddiness (06/17/19) Visit Care Team Role Provider Type Violetta Clark MD Primary Care Provider Physician Specialty: Internal Medicine Address: [address] [place] [address], [address] Email: [email or web address] Robby Finch Family Provider Non-Staff Specialty: Medical Address: [address] [place] [address] [address], [place], [address] Email: Danny Ortega MD Attending Provider Physician Specialty: Ear, Nose, Throat Address: [address] [place] [address], [address] Email: [email or web address] Visit Number Visit Number 3 Discharge Summary PT-OP-B Current Condition Start: 04/24/19 12:08 Freq: Status: Active Protocol: Document 04/24/19 11:15 DCW (Rec: 04/24/19 12:45 DCW [id number]) Current Condition History of Current Condition Onset Date Multi-month history Current Complaints Progressing imbalance, hx Meniere's History of Current Condition Pt is an 84 year old male complaining of a multi-month history of worsening spontaneous imbalance and nausea. Pt reports episodes come and go, but mainly occur when he is up walking around, particularly in low-light situations. Pt does have a history of Meniere's Disease, which has not bothered him for the past nine years, following, per ENT notes, he was left with a nonfunctional right ear. 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 Pt notes that a few weeks ago, he had a 24 hour episode of dizziness, and he slept for 13 hours straight, more than double his normal six hours. Pt denies recent hearing changes, diplopia, dysarthria, discoordination, or decreased mentation/consciousness. Pt denies hx of HTN, hyperlipidemia, diabetes, arrhythmia, head trauma, seizure, migraines, CVA, or excessive smoking or drinking. 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 Prior Functional Status Baseline Function- ADL's Independent Baseline Function- Mobility Independent Current Functional Impairments (Reported) Functional Limitations- Mobility/Gait Difficulty with gait in darkness or decreased visual imput, occasional imbalance when standing/moving. 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 PT-OP-C Subjective Start: 04/24/19 12:08 Freq: Status: Active Protocol: Document 06/17/19 12:00 DCW (Rec: 06/17/19 12:48 DCW [id number]) OP-PT Subjective Patient Comments Patient Comments Pt notes that things are getting gradually better. Still not great, but I'm heading in the right direction . PT-OP-D Balance Start: 04/24/19 12:08 Freq: Status: Active Protocol: Document 04/24/19 11:15 DCW (Rec: 04/24/19 12:45 DCW [id number]) Balance Tests CTSIB CTSIB Position 1 Mild Sway CTSIB Position 2 Moderate Sway CTSIB Position 3 Mild Sway CTSIB Position 4 Moderate Sway CTSIB Position 5 Fall Reaction CTSIB Position 6 Fall Reaction PT-OP-H Neuro Start: 04/24/19 12:25 Freq: Status: Active Protocol: Document 06/17/19 12:00 DCW (Rec: 06/17/19 12:48 DCW [id number]) Sensation Evaluation Location Details Right Foot Light Touch Impaired Protective Sensation Impaired Proprioception (Position) Intact/Normal Kinesthesia (Movement) Intact/Normal Left Foot Light Touch Impaired Protective Sensation Impaired Proprioception (Position) Intact/Normal Kinesthesia (Movement) Intact/Normal PT-OP-O Vestibular Start: 04/24/19 12:08 Freq: Status: Active Protocol: Document 06/17/19 12:00 DCW (Rec: 06/17/19 12:48 DCW [id number]) Vestibular Assessment Visual Testing Smooth Pursuits Horizontal WNL Smooth Pursuits Vertical WNL Saccades Horizontal WNL Gaze Evoked Nystagmus With Fixation Negative Gaze Evoked Nystagmus Without Fixation Negative Heave Test Positive Bilateral Thrust Head Positive Bilateral Head Shake Positive PT-OP-T Assessment and Plan Start: 04/24/19 12:08 Freq: Status: Active Protocol: Document 07/02/19 14:04 DCW (Rec: 07/02/19 14:06 DCW [id number]) Physical Therapy Assessment Impairments Impairments Balance,Functional Mobility, Gait,Sensation,Vestibular, Visual Motor Other Concerns Barriers to Rehabilitation Hx Meniere's, nonfunctional right ear, visual problems ( Glaucoma), mild neuropathy Goals Three Impairment Pt has fall reaction in positions V and on CTSIB Alf Goal (LTG) Pt to tolerate all positions of the CTSIB with moderate sway or better LTG Duration 09/01/19 Two Impairment Pt has difficulty walking to his bathroom at night [employer] Goal (LTG) Pt to report no feeling of imbalance when walking to his bathroom for two straight weeks LTG Duration 09/01/19 One Impairment Pt does not have an appropriate home exercise program Short Term Goal (STG) Pt to be independent and compliant with an appropriate HEP STG Duration 07/28/19 Assessment Summary Assessment Pt phoned to cancel remaining visits, reports he will be continuing therapy elsewhere due to insurance issues. Physical Therapy Plan Frequency and Duration Frequency of Treatment 1x/Week Duration of Treatment 12 weeks Plan of Care Start Date 06/17/19 Plan of Care End Date 09/01/19 Therapeutic Interventions Therapeutic Interventions Balance Training,Coordination Training,Gait Training, Neuromuscular Re-education, Patient/Caregiver Education, Self-Care/Home Management, Therapeutic Exercises, Vestibular Rehabilitation Discharge Physical Therapy Discharge Reasons Patient Request Next Visit Focus/Plan Next Note Type Discharge Summary
== END 2019-07-11 14:12 ==
LOC: PHYS 12:00
PROVIDERS: Family Provider Internal Medicine Hematology & Oncology; PCP Internal Medicine; Visit Provider Otolaryngology
DX: R26.89 Other abnormalities of gait and mobility (principal); H81.391 Other peripheral vertigo, right ear; H81.392 Other peripheral vertigo, left ear
CPT/HCPCS: 97112; 97162; 97535

== ENCOUNTER → 2019-07-07 06:53 | Outpatient (CLI) | payer OTHER, SELFPAY ==
[2019-07-07 08:24] LABS: Add Manual Diff / Slide Review NO; Basophils Absolute Auto 0 /uL (0-100); Basophils Percent Auto 0.6 % (0-2); Eosinophils Absolute Auto 100 /uL (0-450); Eosinophils Percent Auto 2.2 % (2-4); Hematocrit 44.4 % (41-53); Hemoglobin 14.9 g/dL (13.5-17.5); Lymphocytes Absolute Auto 1700 /uL (1100-4500); Lymphocytes Percent Auto 35.5 % (25-40); Mean Corpuscular HGB Conc 33.6 % (30-36); Mean Corpuscular Hemoglobin 34.5 PG (26-34); Mean Corpuscular Volume 102.6 fL (80-100); Monocytes Absolute Auto 300 /uL (0-900); Monocytes Percent Auto 6.8 % (3-14); Neutrophils Absolute Auto 2600 /uL (1500-7000); Neutrophils Percent Auto 54.9 % (50-75); Red Blood Cell Count 4.33 X10^6/uL (4.5-5.9); Red Cell Distribution Width 16.6 % (11.6-14.8); White Blood Cell Count 4.7 X10^3/uL (4.5-11.0)
[2019-07-07 08:26] LABS: Platelet Count 46 X10^3/uL (150-400)
== END ==
PROVIDERS: Family Provider Internal Medicine Hematology & Oncology; PCP Internal Medicine; Visit Provider Internal Medicine
DX: D69.6 Thrombocytopenia, unspecified (principal)
CPT/HCPCS: 36415; 85025

== ENCOUNTER → 2019-07-21 15:22 | Outpatient (ROUT) | payer OTHER, SELFPAY ==
[2019-07-21 15:32] LABS: Basophils Absolute Auto 0 /uL (0-100); Basophils Percent Auto 0.5 % (0-2); Eosinophils Absolute Auto 100 /uL (0-450); Eosinophils Percent Auto 1.7 % (2-4); Hematocrit 41.3 % (41-53); Hemoglobin 14.3 g/dL (13.5-17.5); Lymphocytes Absolute Auto 1500 /uL (1100-4500); Lymphocytes Percent Auto 31.1 % (25-40); Mean Corpuscular HGB Conc 34.5 % (30-36); Mean Corpuscular Hemoglobin 34.5 PG (26-34); Mean Corpuscular Volume 100.2 fL (80-100); Monocytes Absolute Auto 300 /uL (0-900); Neutrophils Absolute Auto 2900 /uL (1500-7000); Neutrophils Percent Auto 59.7 % (50-75); Red Blood Cell Count 4.13 X10^6/uL (4.5-5.9); Red Cell Distribution Width 16.2 % (11.6-14.8); White Blood Cell Count 4.9 X10^3/uL (4.5-11.0)
[2019-07-21 15:37] LABS: Add Manual Diff / Slide Review SLIDE REVIEW
[2019-07-21 16:12] LABS: Macrocytosis 2+; Platelet Count 46 X10^3/uL (150-400); Platelet Estimate Decreased on smear
== END ==
PROVIDERS: Family Provider Internal Medicine Hematology & Oncology; PCP Internal Medicine; Visit Provider Internal Medicine
DX: J20.9 Acute bronchitis, unspecified (principal)
CPT/HCPCS: 85025

== ENCOUNTER → 2020-01-20 10:30 | Outpatient (CLI) | payer MEDICARE, SELFPAY ==
--- NOTE | 2020-01-20 10:54 | DI.CT.S_ITS ---
PROCEDURE: CT ABDOMEN PELVIS WO CON INDICATIONS: Lower abdominal pain, unspecified TECHNIQUE: After the administration of oral contrast, 5 mm thick sections acquired from the diaphragms to the symphysis. 5 mm coronal and sagittal reformats were performed. For radiation dose reduction, the following was used: automated exposure control, adjustment of mA and/or kV according to patient size. COMPARISON: [facility], CT, CT ABDOMEN PELVIS W CON, 05/10/2019, 11:07. FINDINGS: Image quality: Excellent. ABDOMEN: Lung bases: Lung bases are clear. Heart size is normal. Coronary artery calcifications are present. Solid organs: Subcentimeter hepatic hypodensities are statistically cysts or hemangiomas, although technically too small to characterize accurately and therefore nonspecific. Gallbladder negative. Pancreas is normal in size. Spleen is normal in size. No adrenal nodules. Both kidneys are normal in size, without hydronephrosis or nephrolithiasis. Peritoneum and bowel: Bowel loops demonstrate normal wall thickness and caliber. No free fluid or air. Normal appendix. Colonic diverticulosis is seen without evidence of acute complication. Nodes and vessels: No retroperitoneal or mesenteric adenopathy by size criteria. Aorta and inferior vena cava are normal in size. Miscellaneous: No ventral hernias. A presumed left anterior chest wall lipoma seen image 19 series 2, which is unchanged. PELVIS: Genitourinary: Bladder wall thickness is normal. Fat containing small left inguinal hernia which appears unchanged. Enlarged prostate Bones: No suspicious bony lesions. Chronic L5 pars defects and grade 1 anterolisthesis of L5 on S1. L1 compression fracture appears unchanged. IMPRESSION: No acute abnormality. Normal appendix. Incidental colonic diverticulosis. Enlarged prostate. Small fat-containing left inguinal hernia, unchanged Additional chronic and incidental findings as above. Dictated by: Brendan Jasso M.D. on 01/20/2020 at 17:00 Approved by: Brendan Jasso M.D. on 01/20/2020 at 17:11
== END ==
PROVIDERS: Family Provider Internal Medicine Hematology & Oncology; PCP Internal Medicine; Referring Provider Internal Medicine; Visit Provider Internal Medicine
DX: R10.30 Lower abdominal pain, unspecified (principal); K57.90 Diverticulosis of intestine, part unspecified, without perforation or abscess without bleeding; N40.0 Benign prostatic hyperplasia without lower urinary tract symptoms; K40.90 Unilateral inguinal hernia, without obstruction or gangrene, not specified as recurrent; I25.10 Atherosclerotic heart disease of native coronary artery without angina pectoris
CPT/HCPCS: 74176

== ENCOUNTER → 2020-02-12 13:46 | Outpatient (CLI) | payer MEDICARE, SELFPAY ==
[2020-02-15 10:15] LABS: COVID19 Sendout Not Detected (Not Detected)
== END ==
PROVIDERS: Family Provider Internal Medicine Hematology & Oncology; PCP Internal Medicine; Visit Provider Physician Assistant
DX: M79.10 Myalgia, unspecified site (principal); R06.02 Shortness of breath; R11.10 Vomiting, unspecified; R19.7 Diarrhea, unspecified; R51 Headache
CPT/HCPCS: 87635

== ENCOUNTER → 2020-02-13 08:46 | Outpatient (CLI) | payer MEDICARE, SELFPAY ==
[2020-02-13 10:17] LABS: Clostridium Difficile Tox PCR Negative for C. diff
== END ==
PROVIDERS: Family Provider Internal Medicine Hematology & Oncology; PCP Internal Medicine; Referring Provider Internal Medicine; Visit Provider Internal Medicine
DX: R19.7 Diarrhea, unspecified (principal)
CPT/HCPCS: 87493

== ENCOUNTER → 2020-05-07 09:36 | Outpatient (CLI) | payer MEDICARE, SELFPAY ==
[2020-05-07 10:05] LABS: Add Manual Diff / Slide Review NO; Basophils Absolute Auto 0 /uL (0-100); Basophils Percent Auto 0.8 % (0-2); Eosinophils Absolute Auto 0 /uL (0-450); Hematocrit 41.1 % (41-53); Hemoglobin 13.6 g/dL (13.5-17.5); Lymphocytes Absolute Auto 1600 /uL (1100-4500); Lymphocytes Percent Auto 35.8 % (25-40); Mean Corpuscular HGB Conc 33.2 % (30-36); Mean Corpuscular Volume 99.5 fL (80-100); Monocytes Absolute Auto 300 /uL (0-900); Monocytes Percent Auto 7.2 % (3-14); Neutrophils Absolute Auto 2500 /uL (1500-7000); Neutrophils Percent Auto 55.2 % (50-75); Platelet Count 44 X10^3/uL (150-400); Red Blood Cell Count 4.13 X10^6/uL (4.5-5.9); Red Cell Distribution Width 16.4 % (11.6-14.8); White Blood Cell Count 4.5 X10^3/uL (4.5-11.0)
== END ==
PROVIDERS: Family Provider Internal Medicine Hematology & Oncology; PCP Internal Medicine; Referring Provider Internal Medicine; Visit Provider Internal Medicine
DX: D69.6 Thrombocytopenia, unspecified (principal); D46.9 Myelodysplastic syndrome, unspecified
CPT/HCPCS: 36415; 85025

== ENCOUNTER → 2020-09-08 20:14 | Outpatient (ROUT) | payer MEDICARE, SELFPAY ==
[2020-09-08 20:55] LABS: Alanine Aminotransferase 42 IU/L (<50); Albumin 3.7 g/dL (3.5-5.0); Albumin Globulin Ratio 1.7 (1.0-2.8); Alkaline Phosphatase 88 U/L (38-126); Aspartate Aminotransferase 41 IU/L (17-59); BUN Creatinine Ratio 21.3 (6-22); Bilirubin Total 0.5 mg/dL (0.2-1.3); Blood Urea Nitrogen 29 mg/dL (9-20); Calcium 9.2 mg/dL (8.4-10.2); Carbon Dioxide 29 mmol/L (22-32); Chloride 106 mmol/L (98-107); Cholesterol 179 mg/dL (140-199); Estimated Glomerular Filt Rate 49.9 mL/min (>60); Globulin 2.2 g/dL (1.7-4.1); Glucose 86 mg/dL (80-110); HDL Cholesterol 50 mg/dL (40-60); HEMOLYSIS < 15 (0-50); LDL Cholesterol Calculated 104 mg/dL (<100); Potassium 3.9 mmol/L (3.4-5.1); Sodium 138 mmol/L (137-145); Total Protein 5.9 g/dL (6.3-8.2); Triglycerides 123 mg/dL (35-150); Uric Acid 3.7 mg/dL (3.5-8.5)
[2020-09-08 21:24] LABS: TSH w/ Reflex to FT4 0.18 uIU/mL (0.47-4.68)
[2020-09-08 23:10] LABS: Free T4, Direct Thyroxine 1.57 ng/dL (0.78-2.19)
== END ==
PROVIDERS: Family Provider Internal Medicine Hematology & Oncology; PCP Internal Medicine; Visit Provider Internal Medicine
DX: E03.9 Hypothyroidism, unspecified (principal); R73.01 Impaired fasting glucose; E78.5 Hyperlipidemia, unspecified; M10.9 Gout, unspecified
CPT/HCPCS: 80053; 80061; 84439; 84443; 84550

== ENCOUNTER → 2020-09-14 10:45 | Outpatient (CLI) | payer MEDICARE, SELFPAY ==
--- NOTE | 2020-09-14 10:48 | DI.US.S_ITS ---
PROCEDURE: US THYROID INDICATIONS: NON TOXIC SINGE THYROID NODULE TECHNIQUE: Real-time scanning was performed of the thyroid gland, with image documentation. COMPARISON: [facility], [place], US THYROID, 12/02/2018, 10:26. [facility], CT, CT CHEST WO CON, 02/13/2019, 7:03. FINDINGS: Right: Thyroid lobe measures 5.1 x 2.7 x 2.6 cm. Left: Thyroid lobe measures 3 x 1.2 x 0.8 cm. Isthmus: 4 mm thick. Nodule number: 1 Location: Right superior thyroid Size: 2.6 x 2.2 x 2.5 cm, prior 2.9 x 2.3 x 2.2 cm. Composition: Predominantly solid Echogenicity: Hypoechoic Shape: wider than tall. Margins: Smooth Echogenic foci: None. Total points: 4 ACR TI-RADS category: 4 Nodule number: 2 Location: Left superior thyroid Size: 0.4 x 0.4 x 0.3 cm, prior 0.3 x 0.4 x 0.5 cm. Composition: Cystic and solid Echogenicity: Isoechoic Shape: wider than tall. Margins: Smooth Echogenic foci: Potential punctate Total points: 6 ACR TI-RADS category: 4 IMPRESSION: Bilateral stable thyroid nodules are seen. The larger right-sided nodule meets published criteria to recommend an ultrasound-guided percutaneous biopsy. ACR TI-RADS definitions and recommendations: TI-RADS 1 (benign): 0 points. FNA not needed. TI-RADS 2 (not suspicious): 2 points. FNA not needed. TI-RADS 3 (mildly suspicious): 3 points. * FNA if 2.5 cm or larger, follow up if 1.5 cm or larger (at 1, 3, and 5 years). TI-RADS 4 (moderately suspicious): 4-6 points. * FNA if 1.5 cm or larger, follow up if 1 cm or larger (at 1, 2, 3, and 5 years). TI-RADS 5 (highly suspicious): 7 points or more. * FNA if 1 cm or larger, follow up if 0.5 cm or larger (every year for 5 years). Dictated by: Bill Loera M.D. on 09/14/2020 at 11:54 Approved by: Bill Loera M.D. on 09/14/2020 at 11:57
== END ==
PROVIDERS: Family Provider Internal Medicine Hematology & Oncology; PCP Internal Medicine; Referring Provider Internal Medicine; Visit Provider Internal Medicine
DX: E04.2 Nontoxic multinodular goiter (principal)
CPT/HCPCS: 76536

== ENCOUNTER → 2020-09-30 10:28 | Outpatient (CLI) | payer MEDICARE, SELFPAY ==
[2020-09-30 12:45] LABS: Adenovirus F 40/41 Not Detected (Not Detect); Astrovirus Not Detected (Not Detect); Campylobacter Not Detected (Not Detect); Clostridium difficile toxin AB Not Detected (Not Detect); Cryptosporidium Not Detected (Not Detect); Cyclospora cayetanensis Not Detected (Not Detect); Entamoeba histolytica Not Detected (Not Detect); Enteroaggregative E.coli Not Detected (Not Detect); Enteropathogenic E.coli Not Detected (Not Detect); Enterotoxigenic E.coli It/st Not Detected (Not Detect); Giardia lamblia Not Detected (Not Detect); Norovirus GI/GII Not Detected (Not Detect); Plesiomonsa shigelloides Not Detected (Not Detect); Rotavirus A Not Detected (Not Detect); Salmonella Not Detected (Not Detect); Sapovirus Not Detected (Not Detect); Shiga-like toxin-prod E.coli Not Detected (Not Detect); Shigella/Enteroinvasive E.coli Not Detected (Not Detect); Vibrio Not Detected (Not Detect); Vibrio cholerae Not Detected (Not Detect); Yersinia enterocolitica Not Detected (Not Detect)
== END ==
PROVIDERS: Family Provider Internal Medicine Hematology & Oncology; PCP Internal Medicine; Referring Provider Internal Medicine; Visit Provider Internal Medicine
DX: R19.4 Change in bowel habit (principal)
CPT/HCPCS: 87507

== ENCOUNTER → 2020-10-16 08:46 | Outpatient (CLI) | payer MEDICARE, SELFPAY ==
[2020-10-16 11:10] LABS: Thyroid Stimulating Hormone 1.31 uIU/mL (0.47-4.68)
[2020-10-17 00:49] LABS: Free T4, Direct Thyroxine 1.43 ng/dL (0.78-2.19)
== END ==
PROVIDERS: Family Provider Internal Medicine Hematology & Oncology; PCP Internal Medicine; Referring Provider Internal Medicine; Visit Provider Internal Medicine
DX: E03.9 Hypothyroidism, unspecified (principal)
CPT/HCPCS: 36415; 84439; 84443

== ENCOUNTER → 2020-11-01 07:00 | Outpatient (CLI) | payer MEDICARE, SELFPAY ==
[2020-11-03 14:12] LABS: Calprotectin, Stool 38 ug/g (0-120)
[2020-11-04 19:53] LABS: Pancreatic Elastase, Fecal 151 (>200)
== END ==
PROVIDERS: Family Provider Internal Medicine Hematology & Oncology; PCP Internal Medicine; Referring Provider Internal Medicine Gastroenterology; Visit Provider Internal Medicine Gastroenterology
DX: R19.4 Change in bowel habit (principal)
CPT/HCPCS: 82656; 83993

== ENCOUNTER → 2020-11-05 09:47 | Outpatient (CLI) | payer MEDICARE, SELFPAY ==
[2020-11-05 10:37] LABS: Basophils Absolute Auto 0 /uL (0-100); Basophils Percent Auto 0.9 % (0-2); Eosinophils Absolute Auto 100 /uL (0-450); Eosinophils Percent Auto 2.2 % (2-4); Hematocrit 41.4 % (41-53); Hemoglobin 13.6 g/dL (13.5-17.5); Lymphocytes Absolute Auto 1800 /uL (1100-4500); Lymphocytes Percent Auto 40.2 % (25-40); Mean Corpuscular HGB Conc 32.8 % (30-36); Mean Corpuscular Hemoglobin 32.9 PG (26-34); Mean Corpuscular Volume 100.2 fL (80-100); Monocytes Absolute Auto 300 /uL (0-900); Monocytes Percent Auto 6.4 % (3-14); Neutrophils Absolute Auto 2300 /uL (1500-7000); Neutrophils Percent Auto 50.3 % (50-75); Red Blood Cell Count 4.13 X10^6/uL (4.5-5.9); Red Cell Distribution Width 16.1 % (11.6-14.8); White Blood Cell Count 4.6 X10^3/uL (4.5-11.0)
[2020-11-05 10:56] LABS: Add Manual Diff / Slide Review SLIDE REVIEW
[2020-11-05 11:34] LABS: Anisocytosis 1+; Ovalocytes 1+
[2020-11-05 11:36] LABS: Platelet Count 44 X10^3/uL (150-400)
== END ==
PROVIDERS: Family Provider Internal Medicine Hematology & Oncology; PCP Internal Medicine; Referring Provider Internal Medicine; Visit Provider Internal Medicine
DX: D69.6 Thrombocytopenia, unspecified (principal); D46.9 Myelodysplastic syndrome, unspecified
CPT/HCPCS: 36415; 85025

== ENCOUNTER 2020-11-17 17:25 | Emergency (ER) | payer MEDICARE, SELFPAY ==
[2020-11-17 17:42] VITALS: PULSE 60; RESP 17; TEMP 36.9; O2SAT 97; BMI 25.7
[2020-11-17 18:18] VITALS: PULSE 59; RESP 19
[2020-11-17 18:24] LABS: Add Manual Diff / Slide Review NO; Basophils Absolute Auto 100 /uL (0-100); Basophils Percent Auto 1.2 % (0-2); Eosinophils Absolute Auto 100 /uL (0-450); Eosinophils Percent Auto 1.6 % (2-4); Hematocrit 40.9 % (41-53); Hemoglobin 13.6 g/dL (13.5-17.5); Lymphocytes Absolute Auto 2100 /uL (1100-4500); Mean Corpuscular HGB Conc 33.1 % (30-36); Mean Corpuscular Hemoglobin 32.8 PG (26-34); Mean Corpuscular Volume 98.9 fL (80-100); Monocytes Absolute Auto 300 /uL (0-900); Monocytes Percent Auto 5.2 % (3-14); Neutrophils Absolute Auto 3500 /uL (1500-7000); Red Blood Cell Count 4.14 X10^6/uL (4.5-5.9); Red Cell Distribution Width 15.9 % (11.6-14.8); White Blood Cell Count 6.1 X10^3/uL (4.5-11.0)
[2020-11-17 18:27] LABS: Alanine Aminotransferase 32 IU/L (<50); Albumin 3.9 g/dL (3.5-5.0); Albumin Globulin Ratio 1.6 (1.0-2.8); Alkaline Phosphatase 85 U/L (38-126); Aspartate Aminotransferase 40 IU/L (17-59); BUN Creatinine Ratio 17.5 (6-22); Bilirubin Total 0.7 mg/dL (0.2-1.3); Blood Urea Nitrogen 22 mg/dL (9-20); Calcium 9.2 mg/dL (8.4-10.2); Carbon Dioxide 32 mmol/L (22-32); Chloride 103 mmol/L (98-107); Estimated Glomerular Filt Rate 54.5 mL/min (>60); Globulin 2.4 g/dL (1.7-4.1); Glucose 88 mg/dL (80-110); HEMOLYSIS 15 (0-50); Lipase 122 U/L (23-300); Magnesium 2.1 mg/dL (1.6-2.3); Phosphorous 4.1 mg/dL (2.3-3.7); Potassium 3.9 mmol/L (3.4-5.1); Sodium 140 mmol/L (137-145); Total Protein 6.3 g/dL (6.3-8.2)
[2020-11-17 18:30] VITALS: BP 131/65; PULSE 60; RESP 19; O2SAT 96
--- NOTE | 2020-11-17 18:57 | ED_ITS ---
HPI - Recheck/Abnormal Lab/Rx General Chief Complaint: Recheck/Abnormal Lab/Rx Stated Complaint: numbness s/p thyroidectomy Time Seen by Provider: 11/17/20 17:59 Source: patient Mode of arrival: Ambulatory Limitations: no limitations History of Present Illness HPI narrative: Patient is an 85-year-old male who 2 days ago underwent a total thyroidectomy. He was told by the surgeon that if he develops any tingling or cramps that he should come to get evaluated have his calcium checked for concerns of issues with his parathyroid. He states that since surgery he has developed some numbness on the top of both of his feet. Related Data Home Medications Medication Instructions Recorded Confirmed allopurinol 11/17/20 allopurinol 11/17/20 diazepam 11/17/20 doxazosin [Cardura XL] mg PO 11/17/20 latanoprost drp 11/17/20 levothyroxine 125 mcg PO DAILY 11/17/20 11/17/20 pramipexole mg 11/17/20 rosuvastatin mg 11/17/20 Previous Rx's Medication Instructions Recorded ondansetron 4 mg PO Q6H PRN #10 tab 05/10/19 carbamide peroxide 6.5 % ear drops 4 drp EAR-LEFT BID 7 Days #15 ml 11/11/20 Allergies Allergy/AdvReac Type Severity Reaction Status Date / Time No Known Drug Allergies Allergy Verified 11/17/20 17:45 Review of Systems Constitutional Constitutional: Denies fatigue, Denies fever(s) and Denies headache(s) ENT Ears, Nose, Mouth, and Throat: Denies headache(s) and Denies sore throat Cardiovascular Cardiovascular: Denies chest pain and Denies dyspnea Respiratory Respiratory: Denies dyspnea Gastrointestinal Gastrointestinal: Denies abdominal pain, Denies nausea and Denies vomiting Genitourinary Genitourinary: Denies dysuria Genitourinary: Denies dysuria Musculoskeletal Musculoskeletal: Denies arthralgias, Denies myalgias and Reports tingling Integumentary/Breasts Skin/Breast: Denies rash Neurologic Neurologic: Denies confusion, Denies headache(s) and Reports tingling Psychiatric Psychiatric: Denies confusion and Denies depression Endocrine Endocrine: Denies fatigue Hematologic/Lymphatic On Anticoagulants: No Allergic/Immunologic Allergic/Immunologic: Denies urticaria Patient History Medical History (Updated 11/17/20 @ 19:03 by Juan Carlos Costa DO) Patient denies medical problems Social History Smoking Status: Former smoker Smoking Status: Former smoker alcohol intake frequency: other Substance Use Type: does not use Exam Initial Vital Signs Initial Vital Signs: Vital Signs Temperature 98.4 F 11/17/20 17:42 Pulse Rate 60 11/17/20 17:42 Respiratory Rate 17 11/17/20 17:42 Pulse Oximetry 97 11/17/20 17:42 Const General: cooperative and comfortable Limitations: mental status not altered HENTN Head: normal to inspection and normocephalic Eyes General: appearance normal, both eyes and all related structures Neck Other: Surgical bandage anterior neck consistent with stated history Resp Effort & Inspection: normal respiratory effort Cardio Rate: regular rate Pulses: dorsalis pedis present bilaterally Skin Other: Surgical incision anterior neck consistent with stated history Neuro Other: Patient with reported decreased sensation to light touch on both of his feet isolated to the tops of his feet just proximal to his ankle anteriorly. Sensation the same lateral medial and plantar aspect and posterior lower extremity. Extrem General: capillary refill normal Psych Appearance: grossly normal and well kempt Course Orders Ordered: ED Orders 11/17/20 18:00 Complete Blood Count AUTO DIFF Stat Comprehensive Metabolic Panel Stat Lipase Stat Magnesium Stat Phosphorous Stat 11/17/20 18:23 Ionized Calcium Stat Vital Signs Vital signs: Vital Signs - 8 hr 11/17/20 17:42 11/17/20 18:18 11/17/20 18:30 Temperature 98.4 F Pulse Rate 60 59 L 60 Respiratory Rate 17 19 19 Blood Pressure 131/65 Pulse Oximetry 97 96 11/17/20 19:00 11/17/20 19:01 Temperature Pulse Rate 64 66 Respiratory Rate 22 25 H Blood Pressure 136/80 Pulse Oximetry 97 96 MDM - Recheck/Abnormal Lab/Rx Lab Data Attestation: I reviewed the patient's lab results. Result diagrams: 11/17/20 18:00 11/17/20 18:00 Labs: Lab Results 11/17/20 11/17/20 Range/Units 18:00 18:00 WBC 6.1 (4.5-11.0) X10^3/uL RBC 4.14 L (4.5-5.9) X10^6/uL Hgb 13.6 (13.5-17.5) g/dL Hct 40.9 L (41-53) % MCV 98.9 (80-100) fL MCH 32.8 (26-34) PG MCHC 33.1 (30-36) % RDW 15.9 H (11.6-14.8) % Plt Count 44 L (150-400) X10^3/uL Neut % (Auto) 57.0 (50-75) % Lymph % (Auto) 35.0 (25-40) % [place] % (Auto) 5.2 (3-14) % Eos % (Auto) 1.6 L (2-4) % Baso % (Auto) 1.2 (0-2) % Neut # (Auto) 3500 (7447-0572) /uL Lymph # (Auto) 2100 (0785-9492) /uL [place] # (Auto) 300 (0-900) /uL Eos # (Auto) 100 (0-450) /uL Baso # (Auto) 100 (0-100) /uL Sodium 140 (137-145) mmol/L Potassium 3.9 (3.4-5.1) mmol/L Chloride 103 (98-107) mmol/L Carbon Dioxide 32 (22-32) mmol/L BUN 22 H (9-20) mg/dL Creatinine 1.26 H (0.66-1.25) mg/dL Estimated GFR 54.5 L (>60) mL/min BUN/Creatinine Ratio 17.5 (6-22) Glucose 88 (80-110) mg/dL Calcium 9.2 (8.4-10.2) mg/dL Phosphorus 4.1 H (2.3-3.7) mg/dL Magnesium 2.1 (1.6-2.3) mg/dL Total Bilirubin 0.7 (0.2-1.3) mg/dL AST 40 (17-59) IU/L ALT 32 (<50) IU/L Alkaline Phosphatase 85 (38-126) U/L Total Protein 6.3 (6.3-8.2) g/dL Albumin 3.9 (3.5-5.0) g/dL Globulin 2.4 (1.7-4.1) g/dL Albumin/Globulin Ratio 1.6 (1.0-2.8) Lipase 122 (23-300) U/L MDM Narrative Medical decision making narrative: Patient's calcium is unremarkable. His magnesium is normal. He does have an elevated phosphorus however given the setting of the normal calcium I do have low suspicion for hypoparathyroidism. Unsure the exact etiology of the numbness on the tops of his feet. He has numbness does not follow any specific dermatome. There is no signs of infection. I informed him of his lab findings and the lack of a definitive diagnosis. He was instructed to keep all of his postoperative instructions by the surgeon keep all of his follow-up appointment. He expressed understanding and agreement. Discharge Plan Departure Patient Disposition: Home Clinical Impression: Numbness Instructions: DI for Numbness/Tingling Activity Restrictions/Additional Instructions: Your calcium level today is normal. I recommend that you follow all of the postoperative instructions given to you by the surgeon. Keep all of your scheduled follow-up appointments. Return to the emergency department any new or worsening symptoms Prescriptions: No Action carbamide peroxide [Debrox] 6.5 % drops 4 drp EAR-LEFT BID 7 Days Qty: 15 RF: 0 ondansetron 4 mg tablet,disintegrating 4 mg PO Q6H PRN (Reason: nausea and vomiting) Qty: 10 RF: 0 pramipexole 1 mg tablet RF: 0 latanoprost 0.005 % drops RF: 0 allopurinol 100 mg tablet RF: 0 levothyroxine 125 mcg Tablet 125 mcg PO DAILY RF: 0 allopurinol 300 mg tablet RF: 0 diazepam 5 mg tablet RF: 0 rosuvastatin 5 mg tablet RF: 0 Cardura XL 4 mg tablet extended release 24hr PO RF: 0 Referrals: Violetta Clark MD [Primary Care Provider] -
[2020-11-17 18:58] LABS: Platelet Count 44 X10^3/uL (150-400)
[2020-11-17 19:00] VITALS: PULSE 64; RESP 22; O2SAT 97
[2020-11-17 19:01] VITALS: BP 136/80; PULSE 66; RESP 25; O2SAT 96
[2020-11-19 15:51] LABS: Ionized Calcium 4.9 mg/dL (4.5-5.6)
== END 2020-11-17 19:16 | disposition home or self-care (01) ==
PROVIDERS: Emergency Provider Emergency Medicine; Family Provider Internal Medicine Hematology & Oncology; PCP Internal Medicine
DX: R20.0 Anesthesia of skin (principal)
CPT/HCPCS: 36415; 80053; 82330; 83690; 83735; 84100; 85025; 93005; 93010; 99283; 99284

== ENCOUNTER → 2020-12-04 07:55 | Outpatient (CLI) | payer MEDICARE, SELFPAY ==
[2020-12-06 10:43] LABS: Free T3, Triiodothyronine Free 3.11 pg/mL (2.77-5.27); Free T4, Direct Thyroxine 1.84 ng/dL (0.78-2.19)
[2020-12-06 10:56] LABS: Thyroid Stimulating Hormone 0.033 uIU/mL (0.47-4.68)
== END ==
PROVIDERS: Family Provider Internal Medicine Hematology & Oncology; PCP Internal Medicine; Referring Provider Internal Medicine; Visit Provider Internal Medicine
DX: E03.9 Hypothyroidism, unspecified (principal)
CPT/HCPCS: 36415; 84439; 84443; 84481

== ENCOUNTER → 2020-12-22 06:40 | Outpatient (CLI) | payer MEDICARE, SELFPAY ==
[2020-12-22 09:37] LABS: Thyroid Stimulating Hormone 0.121 uIU/mL (0.47-4.68)
== END ==
PROVIDERS: Family Provider Internal Medicine Hematology & Oncology; PCP Internal Medicine; Referring Provider Internal Medicine; Visit Provider Internal Medicine
DX: E03.9 Hypothyroidism, unspecified (principal)
CPT/HCPCS: 36415; 84439; 84443

== ENCOUNTER → 2021-01-20 07:30 | Outpatient (CLI) | payer MEDICARE, SELFPAY | PROVIDERS: Family Provider Internal Medicine Hematology & Oncology; PCP Internal Medicine; Referring Provider Physician Assistant; Visit Provider Physician Assistant | DX: N39.0 Urinary tract infection, site not specified (principal) | CPT/HCPCS: 87086 ==

== ENCOUNTER → 2021-03-17 09:26 | Outpatient (CLI) | payer MEDICARE, SELFPAY ==
[2021-03-17 10:26] LABS: Basophils Absolute Auto 0 /uL (0-100); Basophils Percent Auto 1.1 % (0-2); Eosinophils Absolute Auto 200 /uL (0-450); Eosinophils Percent Auto 4.9 % (2-4); Hematocrit 42.1 % (41-53); Hemoglobin 13.7 g/dL (13.5-17.5); Lymphocytes Absolute Auto 1300 /uL (1100-4500); Lymphocytes Percent Auto 33.4 % (25-40); Mean Corpuscular HGB Conc 32.6 % (30-36); Mean Corpuscular Hemoglobin 31.8 PG (26-34); Mean Corpuscular Volume 97.5 fL (80-100); Monocytes Absolute Auto 300 /uL (0-900); Monocytes Percent Auto 8.4 % (3-14); Neutrophils Absolute Auto 2000 /uL (1500-7000); Neutrophils Percent Auto 52.2 % (50-75); Red Blood Cell Count 4.32 X10^6/uL (4.5-5.9); Red Cell Distribution Width 16.2 % (11.6-14.8); White Blood Cell Count 3.8 X10^3/uL (4.5-11.0)
[2021-03-17 10:32] LABS: Add Manual Diff / Slide Review SLIDE REVIEW
[2021-03-17 11:05] LABS: Anisocytosis 1+; Ovalocytes 1+
[2021-03-17 11:09] LABS: Alanine Aminotransferase 36 IU/L (<50); Albumin 3.8 g/dL (3.5-5.0); Albumin Globulin Ratio 1.7 (1.0-2.8); Alkaline Phosphatase 95 U/L (38-126); Aspartate Aminotransferase 34 IU/L (17-59); BUN Creatinine Ratio 25.2 (6-22); Bilirubin Total 0.6 mg/dL (0.2-1.3); Blood Urea Nitrogen 31 mg/dL (9-20); Calcium 9.2 mg/dL (8.4-10.2); Carbon Dioxide 28 mmol/L (22-32); Chloride 105 mmol/L (98-107); Estimated Glomerular Filt Rate 56.1 mL/min (>60); Globulin 2.3 g/dL (1.7-4.1); Glucose 102 mg/dL (80-110); HEMOLYSIS < 15 (0-50); Potassium 4.6 mmol/L (3.4-5.1); Sodium 139 mmol/L (137-145); Total Protein 6.1 g/dL (6.3-8.2)
[2021-03-17 11:10] LABS: Platelet Count 35 X10^3/uL (150-400)
== END ==
PROVIDERS: Family Provider Internal Medicine Hematology & Oncology; PCP Internal Medicine; Referring Provider Internal Medicine; Visit Provider Internal Medicine
DX: D46.9 Myelodysplastic syndrome, unspecified (principal)
CPT/HCPCS: 36415; 80053; 85025

== ENCOUNTER → 2021-04-15 06:52 | Outpatient (CLI) | payer MEDICARE, SELFPAY ==
[2021-04-15 07:52] LABS: Add Manual Diff / Slide Review NO; Basophils Absolute Auto 0 /uL (0-100); Basophils Percent Auto 0.7 % (0-2); Eosinophils Absolute Auto 200 /uL (0-450); Eosinophils Percent Auto 4.2 % (2-4); Hematocrit 41.4 % (41-53); Hemoglobin 13.5 g/dL (13.5-17.5); Lymphocytes Absolute Auto 1600 /uL (1100-4500); Lymphocytes Percent Auto 36.4 % (25-40); Mean Corpuscular HGB Conc 32.7 % (30-36); Mean Corpuscular Hemoglobin 31.6 PG (26-34); Mean Corpuscular Volume 96.5 fL (80-100); Monocytes Absolute Auto 200 /uL (0-900); Monocytes Percent Auto 5.2 % (3-14); Neutrophils Absolute Auto 2400 /uL (1500-7000); Neutrophils Percent Auto 53.5 % (50-75); Red Blood Cell Count 4.28 X10^6/uL (4.5-5.9); Red Cell Distribution Width 15.9 % (11.6-14.8); White Blood Cell Count 4.5 X10^3/uL (4.5-11.0)
[2021-04-15 08:15] LABS: Platelet Count 35 X10^3/uL (150-400)
[2021-04-15 08:18] LABS: Platelet Estimate Decreased on smear; Platelet Morphology Comment GIANT PLATELETS
== END ==
PROVIDERS: Family Provider Internal Medicine Hematology & Oncology; PCP Internal Medicine; Referring Provider Internal Medicine; Visit Provider Internal Medicine
DX: D69.6 Thrombocytopenia, unspecified (principal)
CPT/HCPCS: 36415; 85025

== ENCOUNTER → 2021-06-07 07:06 | Outpatient (CLI) | payer MEDICARE, SELFPAY ==
[2021-06-07 07:53] LABS: Add Manual Diff / Slide Review NO; Basophils Absolute Auto 100 /uL (0-100); Basophils Percent Auto 1.2 % (0-2); Eosinophils Absolute Auto 100 /uL (0-450); Eosinophils Percent Auto 2.7 % (2-4); Hematocrit 39.2 % (41-53); Hemoglobin 12.8 g/dL (13.5-17.5); Lymphocytes Absolute Auto 1400 /uL (1100-4500); Lymphocytes Percent Auto 33.8 % (25-40); Mean Corpuscular HGB Conc 32.7 % (30-36); Mean Corpuscular Hemoglobin 31.4 PG (26-34); Mean Corpuscular Volume 95.9 fL (80-100); Monocytes Absolute Auto 400 /uL (0-900); Monocytes Percent Auto 10.1 % (3-14); Neutrophils Absolute Auto 2100 /uL (1500-7000); Neutrophils Percent Auto 52.2 % (50-75); Red Blood Cell Count 4.09 X10^6/uL (4.5-5.9); Red Cell Distribution Width 16.5 % (11.6-14.8)
[2021-06-07 08:12] LABS: Platelet Count 38 X10^3/uL (150-400)
[2021-06-07 08:13] LABS: Anisocytosis 1+; Poikilocytosis 1+
== END ==
PROVIDERS: Family Provider Internal Medicine Hematology & Oncology; PCP Internal Medicine; Referring Provider Internal Medicine; Visit Provider Internal Medicine
DX: D69.6 Thrombocytopenia, unspecified (principal); D69.9 Hemorrhagic condition, unspecified
CPT/HCPCS: 36415; 85025

== ENCOUNTER → 2021-08-20 07:46 | Outpatient (CLI) | payer MEDICARE, SELFPAY ==
[2021-08-20 09:59] LABS: Thyroid Stimulating Hormone 0.661 uIU/mL (0.47-4.68)
[2021-08-21 10:28] LABS: PSA Free % 33.8 % (.); PSA, Total 1.3 ng/mL (0.0-4.0)
== END ==
PROVIDERS: Family Provider Internal Medicine Hematology & Oncology; PCP Internal Medicine; Referring Provider Internal Medicine; Visit Provider Internal Medicine
DX: C73 Malignant neoplasm of thyroid gland (principal); E89.0 Postprocedural hypothyroidism; N40.1 Benign prostatic hyperplasia with lower urinary tract symptoms; N13.8 Other obstructive and reflux uropathy
CPT/HCPCS: 36415; 84153; 84154; 84443

== ENCOUNTER → 2021-09-05 07:13 | Outpatient (CLI) | payer MEDICARE, SELFPAY ==
[2021-09-05 08:28] LABS: Add Manual Diff / Slide Review NO; Basophils Absolute Auto 0 /uL (0-100); Basophils Percent Auto 1.1 % (0-2); Eosinophils Absolute Auto 100 /uL (0-450); Eosinophils Percent Auto 3.3 % (2-4); Hematocrit 41.4 % (41-53); Hemoglobin 13.7 g/dL (13.5-17.5); Lymphocytes Absolute Auto 1200 /uL (1100-4500); Lymphocytes Percent Auto 31.8 % (25-40); Mean Corpuscular HGB Conc 33.2 % (30-36); Mean Corpuscular Hemoglobin 31.8 PG (26-34); Mean Corpuscular Volume 95.8 fL (80-100); Monocytes Absolute Auto 400 /uL (0-900); Monocytes Percent Auto 10.6 % (3-14); Neutrophils Absolute Auto 2000 /uL (1500-7000); Neutrophils Percent Auto 53.2 % (50-75); Platelet Count 39 X10^3/uL (150-400); Red Blood Cell Count 4.32 X10^6/uL (4.5-5.9); Red Cell Distribution Width 16.3 % (11.6-14.8); White Blood Cell Count 3.7 X10^3/uL (4.5-11.0)
[2021-09-05 08:43] LABS: Platelet Estimate Decreased on smear
[2021-09-05 08:44] LABS: Anisocytosis 1+; Platelet Morphology Comment GIANT PLATELETS NOTE
[2021-09-05 08:45] LABS: Ovalocytes 1+
== END ==
PROVIDERS: Family Provider Internal Medicine Hematology & Oncology; PCP Internal Medicine; Referring Provider Internal Medicine; Visit Provider Internal Medicine
DX: D46.9 Myelodysplastic syndrome, unspecified
CPT/HCPCS: 36415; 85025

== ENCOUNTER → 2021-09-24 07:27 | Outpatient (CLI) | payer MEDICARE, SELFPAY | PROVIDERS: Family Provider Internal Medicine Hematology & Oncology; PCP Internal Medicine; Visit Provider Nurse Practitioner Family | DX: R30.0 Dysuria (principal) | CPT/HCPCS: 87086 ==

== ENCOUNTER → 2021-11-02 07:03 | Outpatient (CLI) | payer MEDICARE, SELFPAY ==
[2021-11-02 09:03] LABS: Add Manual Diff / Slide Review NO; Basophils Absolute Auto 0 /uL (0-100); Basophils Percent Auto 0.8 % (0-2); Eosinophils Absolute Auto 100 /uL (0-450); Eosinophils Percent Auto 1.6 % (2-4); Hematocrit 45.1 % (41-53); Hemoglobin 15.2 g/dL (13.5-17.5); Lymphocytes Absolute Auto 1600 /uL (1100-4500); Lymphocytes Percent Auto 37.3 % (25-40); Mean Corpuscular HGB Conc 33.7 % (30-36); Mean Corpuscular Hemoglobin 32.2 PG (26-34); Mean Corpuscular Volume 95.6 fL (80-100); Monocytes Absolute Auto 400 /uL (0-900); Neutrophils Absolute Auto 2300 /uL (1500-7000); Neutrophils Percent Auto 52.3 % (50-75); Red Blood Cell Count 4.71 X10^6/uL (4.5-5.9); White Blood Cell Count 4.4 X10^3/uL (4.5-11.0)
[2021-11-02 09:11] LABS: Platelet Count 46 X10^3/uL (150-400)
== END ==
PROVIDERS: Family Provider Internal Medicine Hematology & Oncology; PCP Internal Medicine; Referring Provider Internal Medicine; Visit Provider Internal Medicine
DX: D69.6 Thrombocytopenia, unspecified (principal); D46.9 Myelodysplastic syndrome, unspecified
CPT/HCPCS: 36415; 85025

== ENCOUNTER → 2021-11-03 14:13 | Outpatient (CLI) | payer OTHER, SELFPAY ==
--- NOTE | 2021-11-03 | DI.US.S_ITS ---
PROCEDURE: US RENAL COMPLETE INDICATIONS: Dysuria TECHNIQUE: Real-time scanning was performed of the kidneys and bladder, with image documentation. COMPARISON: [facility], CT, CT ABDOMEN PELVIS WO CON, 01/20/2020, 12:09. [facility], US, RENAL COMPLETE, 04/27/2015, 10:37. FINDINGS: Kidneys: Right kidney measures 9.5 cm long; left kidney measures 9.6 cm long. Right renal cortical thickness is 1.3 cm; left renal cortical thickness is 1.2 cm. Renal cortical echotexture is normal. No hydronephrosis or nephrolithiasis. No suspicious solid mass lesions. Bladder: Pre-void bladder volume is 96 mL. Post-void residual is 45 mL. Pre-void images demonstrate no intraluminal masses or stones. On pre-void images, no ureteral jet is noted with color Doppler interrogation. (Of note, ureteral jets may not be detectable in up to 25% of cases due to insufficient differences in specific gravity between ureteral and bladder urine). Enlarged prostate, measuring 4.5 x 4.3 x 4.8 cm. Miscellaneous: No free pelvic fluid. IMPRESSION: Prostatomegaly. Dictated by: Chad Guo M.D. on 11/03/2021 at 16:56 Approved by: Chad Guo M.D. on 11/03/2021 at 16:58
== END ==
PROVIDERS: Family Provider Internal Medicine Hematology & Oncology; PCP Internal Medicine; Referring Provider Physician Assistant; Visit Provider Physician Assistant
DX: R30.0 Dysuria (principal); N40.0 Benign prostatic hyperplasia without lower urinary tract symptoms
CPT/HCPCS: 76770

== ENCOUNTER → 2022-03-28 06:50 | Outpatient (CLI) | payer OTHER, SELFPAY ==
[2022-03-28 08:48] LABS: Basophils Absolute Auto 100 /uL (0-100); Basophils Percent Auto 1.1 % (0-2); Eosinophils Absolute Auto 100 /uL (0-450); Eosinophils Percent Auto 2.5 % (2-4); Hematocrit 40.9 % (41-53); Hemoglobin 13.3 g/dL (13.5-17.5); Lymphocytes Absolute Auto 1800 /uL (1100-4500); Lymphocytes Percent Auto 37.6 % (25-40); Mean Corpuscular HGB Conc 32.6 % (30-36); Mean Corpuscular Hemoglobin 31.3 PG (26-34); Mean Corpuscular Volume 95.9 fL (80-100); Monocytes Absolute Auto 400 /uL (0-900); Monocytes Percent Auto 8.4 % (3-14); Neutrophils Absolute Auto 2400 /uL (1500-7000); Neutrophils Percent Auto 50.4 % (50-75); Platelet Count 39 X10^3/uL (150-400); Red Blood Cell Count 4.27 X10^6/uL (4.5-5.9); Red Cell Distribution Width 16.4 % (11.6-14.8); White Blood Cell Count 4.9 X10^3/uL (4.5-11.0)
[2022-03-28 09:17] LABS: Add Manual Diff / Slide Review SLIDE REVIEW
[2022-03-28 09:20] LABS: Anisocytosis 1+
[2022-03-28 09:21] LABS: Microcytosis 1+
[2022-03-28 09:22] LABS: RBC Morphology See
== END ==
PROVIDERS: Family Provider Internal Medicine Hematology & Oncology; PCP Internal Medicine; Referring Provider Internal Medicine; Visit Provider Internal Medicine
DX: D69.6 Thrombocytopenia, unspecified (principal)
CPT/HCPCS: 36415; 85025

== ENCOUNTER → 2022-03-31 14:45 | Outpatient (CLI) | payer OTHER, SELFPAY ==
--- NOTE | 2022-03-31 | DI.RAD.S_ITS ---
PROCEDURE: XR CHEST 2V INDICATIONS: COUGH TECHNIQUE: 2 views of the chest were acquired. COMPARISON: None. FINDINGS: Surgical changes and devices: None. Lungs and pleura: Strandy opacity posteriorly at the left lung base. No pleural effusion or pneumothorax. Mediastinum: Mediastinal contours are normal. Heart size is normal. Bones and chest wall: Moderate compression fracture of probably L1 seen on the lateral view. Soft tissues are normal. IMPRESSION: 1. Minor strand-like density at the left lung base may be atelectasis or early infiltrate. Correlate with clinical findings. Dictated by: Tanya Pham M.D. on 03/31/2022 at 18:13 Approved by: Tanya Pham M.D. on 03/31/2022 at 18:14
== END ==
PROVIDERS: Family Provider Internal Medicine Hematology & Oncology; PCP Internal Medicine; Referring Provider Internal Medicine; Visit Provider Internal Medicine
DX: R05.9 Cough, unspecified (principal)
CPT/HCPCS: 71046

== ENCOUNTER → 2022-04-28 07:16 | Outpatient (CLI) | payer MEDICARE, SELFPAY | PROVIDERS: Family Provider Internal Medicine Hematology & Oncology; PCP Internal Medicine; Visit Provider Nurse Practitioner Critical Care Medicine | DX: N39.0 Urinary tract infection, site not specified (principal) | CPT/HCPCS: 87077; 87086; 87186 ==

== ENCOUNTER → 2022-06-16 07:10 | Outpatient (CLI) | payer OTHER, SELFPAY ==
--- NOTE | 2022-06-16 | DI.US.S_ITS ---
PROCEDURE: US SOFT TISSUE HEAD AND NECK INDICATIONS: THYROID CANCER/POSTOPERATIVE HYPOTHYROIDISM TECHNIQUE: Real-time scanning was performed of the neck region of interest, with image documentation. COMPARISON: [facility], CT, CT CHEST WO CON, 02/13/2019, 7:03. [facility], US, US THYROID, 09/14/2020, 11:13. FINDINGS: This patient is status post thyroidectomy. No recurrent thyroid tissue can be seen within the thyroid bed. Within the field of view of this study, no enlarged lymph nodes are seen. IMPRESSION: Status post thyroidectomy, without residual/recurrent thyroid tissue seen by ultrasound. Dictated by: Bill Loera M.D. on 06/16/2022 at 10:02 Approved by: Bill Loera M.D. on 06/16/2022 at 10:05
== END ==
PROVIDERS: Family Provider Internal Medicine Hematology & Oncology; PCP Internal Medicine; Referring Provider Internal Medicine; Visit Provider Internal Medicine
DX: C73 Malignant neoplasm of thyroid gland (principal); E89.0 Postprocedural hypothyroidism
CPT/HCPCS: 76536

== ENCOUNTER → 2022-09-20 06:47 | Outpatient (CLI) | payer OTHER, SELFPAY ==
--- NOTE | 2022-09-20 06:48 | DI.ECHO.S_ITS ---
[place] +---------+ [facility] +---------+ : : [address] : : : : [phone] : : : : Phone: [phone] Echocardiogram Report + + :Name: PEÑA HURLEY Study Date: 09/20/2022 Height: 68 in : :[facility] ReadingLocation: Weight: 165 lb : : Gender: Male BSA: 1.9 m2 : :: 1935 Age: 87 yrs BP: 108/68 mmHg: :Reason For Study: DYSPNEA : :Ordering Physician: REMY, : :KENN Performed By: Enriqueta Wilson : :Referring: KENN ALBERTO : + + Interpretation Summary Normal sinus rhythm. Normal LV size, wall thickness, wall motion and LV systolic function. EF is 55-60%. Severe LA enlargement and borderline RA enlargement. There is a possible posterior mitral valve leaflet prolapse with moderate central associated mitral reguritation (see image 77 out of 104). Mild aortic regurgitation. No prior study available for comparison. Recommend cardiology consultation and LORIN. Procedure: A two-dimensional transthoracic echocardiogram with color flow and Doppler was performed. The study quality was technically adequate. There is no prior echocardiogram noted for this patient. The patient was in sinus bradycardia with heart rates between 52-65 bpm during the exam. Left Ventricle: The left ventricle is normal in size and wall thickness. The ejection fraction is estimated to be 55-60%. Right Ventricle: The right ventricle is borderline dilated. The right ventricular systolic function is normal. Atria: The left atrium is severely dilated. The right atrium is borderline dilated. There is no Doppler evidence for an interatrial shunt. Mitral Valve: The mitral valve leaflets appear normal. There is no evidence of stenosis, fluttering, or prolapse. There is mild to moderate mitral regurgitation. There are multiple regurgitant jets present. Aortic Valve: The aortic valve is trileaflet. The aortic valve opens well. The aortic valve is slightly calcified. There is no aortic valve stenosis. There is mild aortic regurgitation. Tricuspid Valve: The tricuspid valve leaflets are thin and pliable. There is mild tricuspid regurgitation. The right ventricular systolic pressure is estimated to be at least 34 mmHg based on an estimated right atrial pressure of 3 mm Hg. Pulmonic Valve: The pulmonic valve is not well seen, but is grossly normal. There is moderate pulmonic regurgitation. Great Vessels: The aortic root is normal size. The dimensions of the ascending aorta are normal. The IVC is of normal diameter and collapses greater than 50% with a sniff. This suggests a low right atrial pressure of 3 mm Hg. Pericardium/ Pleura There is no pericardial effusion. There is no pleural effusion. MMode/2D Measurements & Calculations LVIDd: 4.6 cm LVOT diam: 2.0 cm LVIDs: 3.1 cm Ao root diam: 3.9 cm FS: 32.3 % asc Aorta Diam: 3.6 cm EPSS: 0.83 cm IVSd: 0.91 cm LVPWd: 0.88 cm LV montes. diameter/BSA (cm/m^2): 2.4 LV sys. diameter/BSA (cm/m^2): 1.7 LA A2 area: 27.7 cm2 RA long axis: 5.2 cm LA A4 area: 25.0 cm2 RA area: 19.1 cm2 LA length (vol): 6.1 cm RA vol: 59.9 ml LA vol: 96.9 ml RA : 31.8 ml/m2 LA vol index: 51.4 ml/m2 IVC diam: 1.9 cm RVD1 (basal): 4.3 cm RVD2 (mid): 3.9 cm TAPSE: 2.1 cm Doppler Measurements & Calculations Ao V2 max: 117.4 cm/sec LVOT Max Juanito: 90.6 cm/sec Ao V2 mean: 78.6 cm/sec LV V1 max P.3 mmHg Ao max P.5 mmHg LV V1 VTI: 22.0 cm Ao mean P.8 mmHg MONSERRAT(I,D): 2.5 cm2 Ao V2 VTI: 29.0 cm MONSERRAT(V,D): 2.5 cm2 sev ratio: 0.76 MONSERRAT indexed to BSA (cm^2/m^2): 1.3 AI P1/2t: 787.6 msec AI dec slope: 145.1 cm/sec2 MV E max juanito: 59.7 cm/sec TR max juanito: 278.2 cm/sec MV A max juanito: 79.8 cm/sec TR max P.0 mmHg MV E/A: 0.75 PA V2 max: 95.2 cm/sec Med Peak E' Juanito: 5.9 cm/sec PA V2 mean: 61.6 cm/sec E/E' med: 10.1 PA mean P.7 mmHg Lat Peak E' Juanito: 9.8 cm/sec PA pr(Accel): 44.7 mmHg E/E' lat: 6.1 E/e' average: 8.1 MV dec time: 0.24 sec SV(MARCELO): 71.6 ml Electronically signed by: Estefani Strickland M.D. on Reading Physician:09/21/2022 02:38 AM
== END ==
PROVIDERS: Family Provider Internal Medicine Hematology & Oncology; PCP Internal Medicine; Referring Provider Internal Medicine; Visit Provider Internal Medicine
DX: R06.09 Other forms of dyspnea (principal); I08.3 Combined rheumatic disorders of mitral, aortic and tricuspid valves
CPT/HCPCS: 93306

== ENCOUNTER → 2023-01-03 08:26 | Outpatient (CLI) | payer MEDICARE, SELFPAY ==
[2023-01-03 10:17] LABS: Thyroid Stimulating Hormone 0.091 uIU/mL (0.47-4.68)
== END ==
PROVIDERS: Family Provider Internal Medicine Hematology & Oncology; PCP Internal Medicine; Referring Provider Internal Medicine; Visit Provider Internal Medicine
DX: C73 Malignant neoplasm of thyroid gland (principal)
CPT/HCPCS: 36415; 84432; 84443; 86800

== ENCOUNTER → 2023-02-13 06:52 | Outpatient (CLI) | payer MEDICARE, SELFPAY ==
[2023-02-13 10:18] LABS: Thyroid Stimulating Hormone 0.545 uIU/mL (0.47-4.68)
== END ==
PROVIDERS: Family Provider Internal Medicine Hematology & Oncology; PCP Internal Medicine; Referring Provider Internal Medicine; Visit Provider Internal Medicine
DX: C73 Malignant neoplasm of thyroid gland (principal); E89.0 Postprocedural hypothyroidism
CPT/HCPCS: 36415; 84443

== ENCOUNTER 2023-05-19 23:21 | Observation (INO) | payer OTHER, SELFPAY ==
[2023-05-19 23:28] VITALS: PULSE 65; O2SAT 95
[2023-05-19 23:30] VITALS: PULSE 66; O2SAT 95
[2023-05-19 23:43] VITALS: BP 127/56; PULSE 67; RESP 18; TEMP 36.4; O2SAT 93; BMI 23.9
--- NOTE | 2023-05-19 23:50 | DI.CT.S_ITS ---
PROCEDURE: CT HEAD/BRAIN WO CON INDICATIONS: Off-balance x 1 day. TECHNIQUE: Noncontrast 4.5 mm thick angled axial sections acquired from the foramen magnum to the vertex, with coronal and sagittal reformats. For radiation dose reduction, the following was used: automated exposure control, adjustment of mA and/or kV according to patient size. COMPARISON: None. FINDINGS: Image quality: Excellent. CSF spaces: Basal cisterns are patent. No extra-axial fluid collections. The ventricles are symmetric in size and shape. Brain: No intracranial bleeds or masses. There is cerebral volume loss for age, with resultant ventricular and sulcal prominence. There are periventricular and deep white matter chronic small vessel ischemic changes. There is intracranial internal carotid artery atherosclerosis. Skull and face: Calvarium and visualized facial bones appear intact, without suspicious lesions. Sinuses: Visualized sinuses and mastoids are clear. IMPRESSION: Normal for age, source of current imbalance symptoms is not seen. Dictated by: Lazaro Lomeli M.D. on 05/20/2023 at 0:52 Approved by: Lazaro Lomeli M.D. on 05/20/2023 at 0:53
--- NOTE | 2023-05-19 23:52 | ED.NEUROSD ---
HPI - Neuro Symptoms/Deficit General Chief Complaint: Dizziness Stated Complaint: lost balance x1 day Time Seen by Provider: 05/19/23 23:22 Source: patient and family Mode of arrival: Ambulatory History of Present Illness HPI Narrative: 88-year-old male with remote history Meniere's, thyroid cancer with thyroidectomy, dyslipidemia, myelodysplastic syndrome, dyslipidemia who presents with complaint of feeling off balance. Patient states he was feeling fine this afternoon he went to a local football game, he was seated throughout the game and then when he got up felt very off balance. He states had to hang onto the railing and states in order to get back to the car. States he went to bed this evening, woke up and continued to be very off balance and presents to the ED. Patient states no vertigo symptoms no dizziness. He states he just feels like his balance is off. He denies headache no vision changes, no new numbness, tingling, no lateralizing weakness. Patient states legs feel a little weak but both of them equally. Patient states no facial droop or difficulty with speech. He notes he is had Meniere's in the past but he would have vertigo like symptoms with that. He states it was approximately 20 years ago he had about 4 years of symptoms and then resolved. Patient denies any chest pain or pressure, no shortness of breath, no nausea, no vomiting, no diarrhea constipation today but did have 3 episodes of loose stools yesterday. Denies any dysuria, urgency frequency or incontinence. Patient does not take any anticoagulants, takes levothyroxine and had his thyroid removed for thyroid cancer remotely, had prior L4/L5 decompression, radioactive iodine and laser prostatectomy. Patient does have tympanostomy tube in the left ear. Denies any allergies. No tobacco, alcohol or illicit. Dr. Violetta klein as his primary care physician. He is accompanied by his . On Anticoagulants: No Related Data Home Medications Medication Instructions Recorded Confirmed allopurinol 100 mg tablet 11/17/20 06/11/22 allopurinol 300 mg tablet 11/17/20 06/11/22 diazepam 5 mg tablet 11/17/20 06/11/22 doxazosin 4 mg tablet,extended mg PO 11/17/20 06/11/22 release 24 hr (Cardura XL) latanoprost 0.005 % eye drops drp 11/17/20 06/11/22 levothyroxine 125 mcg tablet 125 mcg PO DAILY 11/17/20 06/11/22 pramipexole 1 mg tablet mg 11/17/20 06/11/22 rosuvastatin 5 mg tablet mg 11/17/20 06/11/22 Previous Rx's Medication Instructions Recorded ondansetron 4 mg disintegrating 4 mg PO Q6H PRN nausea and 05/10/19 tablet vomiting #10 tabs phenazopyridine 100 mg tablet 100 mg PO TID PRN pain 6 doses #6 04/28/22 (Pyridium) tabs Allergies Allergy/AdvReac Type Severity Reaction Status Date / Time No Known Drug Allergies Allergy Verified 06/11/22 17:22 Review of Systems Review of Systems ROS Unobtainable: All systems reviewed & are unremarkable except as noted in HPI and below Hematologic/Lymphatic On Anticoagulants: No Patient History Medical History (Updated 05/20/23 @ 02:34 by Marcelina Hurst DO) Patient denies medical problems Social History Smoking Status: Former smoker Smoking Status: Former smoker alcohol intake frequency: other Substance Use Type: does not use Exam Narrative Exam Narrative: GEN: Thin but well appearing elderly male, alert and oriented x 3, patient appears to be in mild distress. HEENT: Atraumatic, pupils are equal round reactive to light, extraocular movements are intact, nares are clear, right TM slightly retracted with some scarring, left TM has a tympanostomy tube which appears in place with no drainage, no erythema or bulge and either ear, there is no conjunctival pallor. Throat is clear without any exudates, erythema, tonsillar enlargement or uvular deviation HEART: Regular rate and rhythm without murmur, clicks, rubs. No carotid bruits, pulses are equal in upper and lower extremities LUNGS:Lungs clear to auscultation, no wheezes, rales, crackles, chest moves symmetrically ABD:bowel sounds normal, soft, non-tender, no guarding, rebound, rigidity, no masses noted, no hepatosplenomegaly :No CVA tenderness MSCL: Non-tender, no muscle atrophy, muscles strength 5/5 upper and lower extremities, full range of motion. NEURO:CN 2-12 intact, sensation normal, finger nose finger test normal, heel licea test normal SKIN: No rash, erythema or other skin changes noted Initial Vital Signs Initial Vital Signs: Vital Signs Pulse Rate 65 05/19/23 23:28 Pulse Oximetry 95 05/19/23 23:28 Scores NIH Stroke Scale Level of Conciousness: Alert, keenly responsive Ask month/age: Answers both questions correctly. Open/close eyes, close hand: Performs both tasks correctly Best gaze horizontal: Normal Visual mixon: No visual loss Facial palsy: Normal symetrical movement Left arm drift: No drift for full 10 sec Right arm drift: No drift for full 10 sec Left leg drift: No drift for full 5 sec Right leg drift: No drift for full 5 sec Limb ataxia: Absent Sensory on face/arms/legs: Normal, no sensory loss Best language: No aphasia, normal Dysarthria: Normal Extinction or inattention: No abnormality Total NIH Stroke scale score: 0 Course Orders Ordered: ED Orders 05/19/23 23:40 Complete Blood Count AUTO DIFF Stat Comprehensive Metabolic Panel Stat Ethanol (ETOH) Stat PTT Partial Thromboplastin Isacc Stat Prothrombin Time INR Stat Troponin & CK Cardiac Panel Stat 05/19/23 23:50 CT head/brain wo con Stat 05/19/23 23:51 CT angio head and neck Stat 05/20/23 EKG-12 Lead Stat 05/20/23 00:01 COVID19 -Nasal RAPID Stat Acetaminophen (Acetaminophen 325 Mg Tablet) 650 mg PO Q6H YEHUDA Al Hydrox/Mg Hydrox/Simethicone (Mag Hydrox/Alum/Simeth 30 Ml Udc) 30 ml PO Q6HR PRN PRN Reason: Dyspepsia Calcium Carbonate (Calcium Carbonate 500 Mg Tab) 1,000 mg PO Q4HR PRN PRN Reason: Dyspepsia Ibuprofen (Ibuprofen 600 Mg Tablet) 600 mg PO Q6H YEHUDA Naloxone HCl (Naloxone 0.4 Mg/Ml Vial) 0.2 mg IV Q2MIN PRN PRN Reason: Opiate Reversal Ondansetron HCl (Ondansetron 4 Mg/2 Ml Inj) 4 mg IV Q8HR PRN PRN Reason: Nausea And Vomiting Promethazine HCl (Promethazine 12.5 Mg Supp) 12.5 mg AR Q6HR PRN PRN Reason: Nausea And Vomiting Discontinued Medications Sodium Chloride (Normal Saline 0.9%) 1,000 mls @ 1,000 mls/hr IV BOLUS ONE Stop: 05/20/23 00:49 Last Infusion: 05/20/23 01:43 Dose: Infused Documented By: MARIA ELENA Admin: 05/20/23 00:43 Dose: 1,000 mls/hr Documented By: MARIA ELENA Vital Signs Vital signs: Vital Signs - 8 hr 05/19/23 23:28 05/19/23 23:30 05/19/23 23:43 Temperature 97.6 F Pulse Rate 65 66 67 Respiratory Rate 18 Blood Pressure 127/56 L Pulse Oximetry 95 95 93 Oxygen Delivery Method Room Air 05/20/23 00:00 05/20/23 00:35 05/20/23 00:37 Temperature Pulse Rate 67 59 L 61 Respiratory Rate 19 18 Blood Pressure Pulse Oximetry 95 92 94 Oxygen Delivery Method 05/20/23 00:37 05/20/23 00:40 05/20/23 00:40 Temperature Pulse Rate 60 Respiratory Rate 15 Blood Pressure 127/62 107/57 L Pulse Oximetry 96 Oxygen Delivery Method 05/20/23 01:00 05/20/23 01:00 05/20/23 01:30 Temperature Pulse Rate 59 L 55 L Respiratory Rate 14 15 Blood Pressure 130/60 Pulse Oximetry 93 97 Oxygen Delivery Method 05/20/23 01:30 05/20/23 02:00 05/20/23 02:00 Temperature Pulse Rate 59 L Respiratory Rate 13 Blood Pressure 124/60 121/60 Pulse Oximetry 98 Oxygen Delivery Method 05/20/23 02:14 05/20/23 02:14 05/20/23 02:30 Temperature Pulse Rate 59 L 59 L Respiratory Rate 16 19 Blood Pressure 139/60 Pulse Oximetry 98 97 Oxygen Delivery Method 05/20/23 02:31 05/20/23 02:31 Temperature Pulse Rate 62 Respiratory Rate 19 Blood Pressure 123/56 L Pulse Oximetry 97 Oxygen Delivery Method MDM - Neuro Symptoms/Deficit Lab Data 05/19/23 23:40 05/19/23 23:40 Labs: Lab Results 05/19/23 05/19/23 Range/Units 23:40 23:54 WBC 5.0 (4.5-11.0) X10^3/uL RBC 3.94 L (4.5-5.9) X10^6/uL Hgb 12.2 L (13.5-17.5) g/dL Hct 36.7 L (41-53) % MCV 93.0 (80-100) fL MCH 31.1 (26-34) PG MCHC 33.4 (30-36) % RDW 16.7 H (11.6-14.8) % Plt Count 33 L* (150-400) X10^3/uL Neut % (Auto) 46.7 L (50-75) % Lymph % (Auto) 38.6 (25-40) % [place] % (Auto) 8.4 (3-14) % Eos % (Auto) 4.8 H (2-4) % Baso % (Auto) 1.5 (0-2) % Neut # (Auto) 2400 (0521-1130) /uL Lymph # (Auto) 1900 (0204-5422) /uL [place] # (Auto) 400 (0-900) /uL Eos # (Auto) 200 (0-450) /uL Baso # (Auto) 100 (0-100) /uL Platelet Estimate Decreased on smear RBC Morphology See below Anisocytosis 2+ H PT 10.8 (10.1-12.7) SECONDS INR 0.9 (0.9-1.3) APTT 34 (26-36) SECONDS Sodium 139 (137-145) mmol/L Potassium 3.9 (3.4-5.1) mmol/L Chloride 107 (98-107) mmol/L Carbon Dioxide 26 (22-32) mmol/L BUN 24 H (9-20) mg/dL Creatinine 1.14 (0.66-1.25) mg/dL Estimated GFR > 60 (>60) mL/min BUN/Creatinine Ratio 21.1 (6-22) Glucose 111 H (80-110) mg/dL Calcium 8.7 (8.4-10.2) mg/dL Total Bilirubin 0.5 (0.2-1.3) mg/dL AST 30 (17-59) IU/L ALT 27 (<50) IU/L Alkaline Phosphatase 69 (38-126) U/L Total Creatine Kinase 91 (55-170) U/L Troponin I < 0.012 (0.01-0.034) ng/mL Total Protein 5.9 L (6.3-8.2) g/dL Albumin 3.5 (3.5-5.0) g/dL Globulin 2.4 (1.7-4.1) g/dL Albumin/Globulin Ratio 1.5 (1.0-2.8) Ethyl Alcohol < 10 ( - 10) mg/dL SARS-CoV-2 (PCR) Negative (Negative) Urine Dip Bedside Urine Glucose Negative Bedside Urine Bilirubin - Negative Bedside Urine Ketone - Negative Urine Specific Frannie 1.010 Bedside Urine Occult Blood - Negative Bedside Urine pH 6.0 Bedside Urine Protein - Negative Bedside Urine Urobilinogen - Negative Bedside Urine Nitrite - Negative Bedside Urine Leukocytes - Negative Esterase Imaging Data CT scan - head: Radiologist's Impression: [address] [address] [address] Scan Report Signed Patient: Phi Cantrell MR#: [id number] : 1935 Acct:[id number] Age/Sex: 88 / M Date of Service: 05/19/23 Loc: ED Accession Number: [id number] Procedure: CT head/brain wo con Ordering Provider: Marcelina Hurst D.O. PROCEDURE: CT HEAD/BRAIN WO CON INDICATIONS: Off-balance x 1 day. TECHNIQUE: Noncontrast 4.5 mm thick angled axial sections acquired from the foramen magnum to the vertex, with coronal and sagittal reformats. For radiation dose reduction, the following was used: automated exposure control, adjustment of mA and/or kV according to patient size. COMPARISON: None. FINDINGS: Image quality: Excellent. CSF spaces: Basal cisterns are patent. No extra-axial fluid collections. The ventricles are symmetric in size and shape. Brain: No intracranial bleeds or masses. There is cerebral volume loss for age, with resultant ventricular and sulcal prominence. There are periventricular and deep white matter chronic small vessel ischemic changes. There is intracranial internal carotid artery atherosclerosis. Skull and face: Calvarium and visualized facial bones appear intact, without suspicious lesions. Sinuses: Visualized sinuses and mastoids are clear. IMPRESSION: Normal for age, source of current imbalance symptoms is not seen. Dictated by: Lazaro Lomeli M.D. on 05/20/2023 at 0:52 Approved by: Lazaro Lomeli M.D. on 05/20/2023 at 0:53 CTA - brain/neck: Radiologist's Impression: [address] [address] [address] Scan Report Signed Patient: Phi Cantrell MR#: [id number] : 1935 Acct:[id number] Age/Sex: 88 / M Date of Service: 05/19/23 Loc: ED Accession Number: [id number] Procedure: CT angio head and neck Ordering Provider: Marcelina Hurst D.O. PROCEDURE: CT ANGIO HEAD AND NECK INDICATIONS: Off-balance x 1 day. TECHNIQUE: After the administration of intravenous contrast, 1 mm thick sections acquired from the aortic arch through the [place]. 3-dimensional gfhflmm-wgqwliwml-ftzcunyhgz (MIP) and/or volume rendering reformats were acquired of the central intracranial vasculature and neck separately. For radiation dose reduction, the following was used: automated exposure control, adjustment of mA and/or kV according to patient size. COMPARISON: None. FINDINGS: Image quality: Diagnostic. BRAIN: CSF spaces: Ventricles are normal in size and shape. Basal cisterns are patent. No extra-axial fluid collections. Brain: No significant abnormality of the brain can be seen. Skull and face: Calvarium and facial bones appear intact, without suspicious lesions. Orbits appear normal. Sinuses: Sinuses and mastoids are clear. HEAD CT ANGIOGRAPHY: Anterior circulation: Intracranial internal carotid arteries are normal in size and flow. The flow within the paired anterior cerebral arteries is normal and symmetric. The flow within the middle cerebral arteries is normal and symmetric. The anterior communicating artery is seen. No aneurysms are seen. Posterior circulation: Visualized portions of the vertebral arteries demonstrate normal caliber, and join to form a normal appearing basilar artery. Flow within the posterior cerebral arteries is normal and symmetric. No aneurysms are seen. NECK CT ANGIOGRAPHY: Carotid system: The great vessels demonstrate a conventional anatomy as they arise from the aortic arch. The origins of the common carotid arteries appear patent. The common carotid arteries demonstrate normal caliber and courses. The bifurcation regions are both widely patent, and there is greater atherosclerotic calcific plaquing at the proximal right internal carotid artery when compared to that on the left but no significant associated stenosis. The internal carotid arteries demonstrate normal calibers and courses. Posterior circulation: The origins of the vertebral arteries both appear widely patent. The more superior extracranial portions of both vertebral arteries also demonstrate normal courses and calibers. They join to form a normal appearing basilar artery. Soft tissues: Visualized neck soft tissues demonstrate no suspicious abnormalities. Bones: No suspicious bony lesions. Visualized cervical spine appears normally aligned. IMPRESSION: No embolic disease is found, no area of significant stenosis within the brachiocephalic vasculature or the intracranial arterial vasculature. Source of current symptoms is not seen. Any quantitative measurements of stenosis were performed using NASCET criteria. Dictated by: Lazaro Lomeli M.D. on 05/20/2023 at 1:27 Approved by: Lazaro Lomeli M.D. on 05/20/2023 at 1:30 ECG Data Attestation: I personally reviewed and interpreted this ECG as follows: Prior ECG tracings: available for review Interpretation: Sinus rhythm with sinus arrhythmia rate of 64 AR 160 QRS of [address]TC [address] No acute [address] elevation or depression noted. Patient has prior for 08/18/2020 frequent PVCs on the EKG, also 05/10/[address] changes noted. MDM Narrative Medical decision making narrative: 88-year-old male presents with complaint of feeling off balance. He does not have any other vertigo symptoms or spinning, NIH is negative. He does describe some weakness of his lower extremities but does not demonstrate significant weakness. Head CT CT angio did not show acute change patient has had years remotely in the past but states this feels very different. Does have low platelets at 33 but tends to run in the 30s to 40 range does have a history of MDS, hemoglobin is 12.2 consistent with prior in February with a white count of 5. Coags negative, electrolytes appropriate with a sodium 139 potassium 3.9 BUN 24 creatinine of 1.14 and glucose of 111, troponins negative. Point of care urine negative. On examination patient does not have clear weakness but does have an antalgic gait. He states he does not normally use a walker or cane, he states an abrupt change. Did try walking with a cane and appears antalgic but not significantly weak. Does not have clear vertigo symptoms. Aspirin held for possible stroke secondary to low platelets. Discussed with hospitalist, Dr. Nieves about observation for possible stroke (possible posterior) vs other cause with plan for MR in am. Dr. Nieves accepts for observation. Discharge Plan Departure Patient Disposition: Admitted as Observation Clinical Impression: Balance problem Admit Date/Time: 05/20/23 02:34 Admit Provider: Juan Carlos Nieves
[2023-05-20] VITALS (12 sets, daily range): BP systolic 107–139; BP diastolic 51–62; PULSE 54–67; RESP 13–19; TEMP 36.3–36.5; O2SAT 92–98; BMI 22.0
[2023-05-20 00:06] LABS: INR 0.9 (0.9-1.3); Prothrombin Time 10.8 SECONDS (10.1-12.7)
[2023-05-20 00:08] LABS: Creatine Kinase 91 U/L (55-170)
[2023-05-20 00:09] LABS: Alanine Aminotransferase 27 IU/L (<50); Albumin 3.5 g/dL (3.5-5.0); Albumin Globulin Ratio 1.5 (1.0-2.8); Alkaline Phosphatase 69 U/L (38-126); Aspartate Aminotransferase 30 IU/L (17-59); BUN Creatinine Ratio 21.1 (6-22); Bilirubin Total 0.5 mg/dL (0.2-1.3); Blood Urea Nitrogen 24 mg/dL (9-20); Calcium 8.7 mg/dL (8.4-10.2); Carbon Dioxide 26 mmol/L (22-32); Chloride 107 mmol/L (98-107); Estimated Glomerular Filt Rate > 60 mL/min (>60); Ethanol (ETOH) < 10 mg/dL; Globulin 2.4 g/dL (1.7-4.1); Glucose 111 mg/dL (80-110); HEMOLYSIS < 15 (0-50); Potassium 3.9 mmol/L (3.4-5.1); Sodium 139 mmol/L (137-145); Total Protein 5.9 g/dL (6.3-8.2)
[2023-05-20 00:15] LABS: Basophils Absolute Auto 100 /uL (0-100); Basophils Percent Auto 1.5 % (0-2); Eosinophils Absolute Auto 200 /uL (0-450); Eosinophils Percent Auto 4.8 % (2-4); Hematocrit 36.7 % (41-53); Hemoglobin 12.2 g/dL (13.5-17.5); Lymphocytes Absolute Auto 1900 /uL (1100-4500); Lymphocytes Percent Auto 38.6 % (25-40); Mean Corpuscular HGB Conc 33.4 % (30-36); Mean Corpuscular Hemoglobin 31.1 PG (26-34); Monocytes Absolute Auto 400 /uL (0-900); Monocytes Percent Auto 8.4 % (3-14); Neutrophils Absolute Auto 2400 /uL (1500-7000); Neutrophils Percent Auto 46.7 % (50-75); Red Blood Cell Count 3.94 X10^6/uL (4.5-5.9); Red Cell Distribution Width 16.7 % (11.6-14.8)
[2023-05-20 00:16] LABS: Add Manual Diff / Slide Review SLIDE REVIEW
[2023-05-20 00:19] LABS: PTT Partial Thromboplastin Tim 34 SECONDS (26-36)
[2023-05-20 00:20] LABS: Troponin I < 0.012 ng/mL (0.01-0.034)
[2023-05-20 00:28] LABS: COVID19 -Nasal RAPID Negative (Negative)
[2023-05-20] MEDS: SODIUM CHLORIDE 0.9% 1,000 ML 1000 ML IV (00:43)
[2023-05-20 01:11] LABS: Platelet Count 33 X10^3/uL (150-400)
[2023-05-20 01:12] LABS: Anisocytosis 2+; Platelet Estimate Decreased on smear
--- NOTE | 2023-05-20 02:35 | DI.MRI.S_ITS ---
PROCEDURE: MR HEAD/BRAIN WO CON INDICATIONS: off balance, no vertigo. TECHNIQUE: Non-contrast axial T1 spin echo, axial T2 fast spin echo, sagittal and axial FLAIR, coronal T2 fast spin echo, axial gradient echo, axial diffusion and ADC through the brain. COMPARISON: , CT, CT HEAD/BRAIN WO CON, 05/20/2023, 0:25. FINDINGS: Image quality: Excellent. CSF spaces: Ventricles appear symmetric in size and shape. Basal cisterns are patent. No extra-axial fluid collections. Brain: No intracranial bleeds or mass effects. There is cerebral volume loss for age. There are periventricular and deep white matter chronic small vessel ischemic changes. Brainstem appears normal. Diffusion-weighted images show no acute ischemic insults. No chronic ischemic insults. Normal intravascular flow voids are present. Skull and face: Calvarial bone marrow is normal in signal. Orbits are normal. Sinuses: Sinuses and mastoids are clear. IMPRESSION: 1. No acute infarction. No acute intracranial bleed, midline shift or mass effect. 2. Age related volume loss. Dictated by: Rayo Vargas M.D. on 05/20/2023 at 9:28 Approved by: Rayo Vargas M.D. on 05/20/2023 at 9:29
--- NOTE | 2023-05-20 03:59 | PC.NURSE ---
HOME MEDICATION LIST: Home medication list included the following supplements that were not present in [employer] system in correct forms/dosages: B12- 5000 mg PO Daily glucosamine & chondoritin 1500/1200 mg PO BID Probiotic PO Daily calcium 600 mg PO Daily D-mannose 650 mg PO BID Patient additionally has the following PRN listed: ciprofloxacin 500 mg if needed for UTI travel [no further instructions on dosage timing or frequency] Informed assigned RN of med list completion status.
--- NOTE | 2023-05-20 04:43 | PC.ADMIT ---
[phone] Admission Note: Patient admitted to ACU from ED at 03:11 transferred by stretcher. A/O x 4, able to make needs known. 1PA with FWW due to vertigo. Oriented to room and call light. Denies pain. Bed in low and locked position, call light within reach and bed alarm on. The patient,Phi Cantrell,88 y/o, was given written information regarding hospital policies, unit procedures and contact persons. Patient's smoking status: Former smoker. Vital Signs - 8 hr 05/19/23 23:28 05/19/23 23:30 05/19/23 23:43 Temperature 97.6 F Pulse Rate 65 66 67 Respiratory Rate 18 Blood Pressure 127/56 L Pulse Oximetry 95 95 93 Oxygen Delivery Method Room Air 05/20/23 00:00 05/20/23 00:35 05/20/23 00:37 Temperature Pulse Rate 67 59 L 61 Respiratory Rate 19 18 Blood Pressure Pulse Oximetry 95 92 94 Oxygen Delivery Method 05/20/23 00:37 05/20/23 00:40 05/20/23 00:40 Temperature Pulse Rate 60 Respiratory Rate 15 Blood Pressure 127/62 107/57 L Pulse Oximetry 96 Oxygen Delivery Method 05/20/23 01:00 05/20/23 01:00 05/20/23 01:30 Temperature Pulse Rate 59 L 55 L Respiratory Rate 14 15 Blood Pressure 130/60 Pulse Oximetry 93 97 Oxygen Delivery Method 05/20/23 01:30 05/20/23 02:00 05/20/23 02:00 Temperature Pulse Rate 59 L Respiratory Rate 13 Blood Pressure 124/60 121/60 Pulse Oximetry 98 Oxygen Delivery Method 05/20/23 02:14 05/20/23 02:14 05/20/23 02:30 Temperature Pulse Rate 59 L 59 L Respiratory Rate 16 19 Blood Pressure 139/60 Pulse Oximetry 98 97 Oxygen Delivery Method 05/20/23 02:31 05/20/23 02:31 05/20/23 02:47 Temperature Pulse Rate 62 Respiratory Rate 19 Blood Pressure 123/56 L Pulse Oximetry 97 Oxygen Delivery Method Room Air 05/20/23 03:38 Temperature 97.4 F L Pulse Rate 54 L Respiratory Rate 18 Blood Pressure 111/51 L Pulse Oximetry 97 Oxygen Delivery Method
--- NOTE | 2023-05-20 05:06 | P.HP_ITS ---
History of Present Illness History of Present Illness Date Patient Seen: 05/20/23 Time Patient Seen: 05:06 Chief complaint: lost balance x1 day Narrative: The pt is a 88 yo with a hx of Meniere's Disease who reports having a one day hx of lightheadedness and trouble with his balance. He was at a football game when this occurred. He was able to drive himself home and then took a 3 hours nap but came into the Er when his symptoms were worse when he woke up. He denies vertigo, states this is much different then his Meniere's disease. He denies any nausea, vomiting, [place] O[place], change in vision, weakness, discordination, recent falls. Phi has not been sick recently with no change in his medications. [facility]LY [facility] Medical History (Updated 05/20/23 @ 05:11 by Juan Carlos Nieves MD) Patient denies medical problems Social History household members: spouse Smoking Status: Former smoker alcohol intake: never Meds Home Medications and Allergies Home Medications Medication Instructions Recorded Confirmed Type diazepam 5 mg tablet 5 mg PO BEDTIME 11/17/20 05/20/23 History latanoprost 0.005 % eye drops 1 drp EYE-BOTH BEDTIME 11/17/20 05/20/23 History pramipexole 1 mg tablet 1 mg PO BEDTIME 11/17/20 05/20/23 History rosuvastatin 5 mg tablet 20 mg PO BEDTIME 11/17/20 05/20/23 History phenazopyridine 100 mg tablet 100 mg PO TID PRN pain 6 doses #6 04/28/22 05/20/23 Rx (Pyridium) tabs ascorbic acid (vitamin C) 500 mg 500 mg PO DAILY 05/20/23 05/20/23 History tablet cholecalciferol (vitamin D3) 50 2,000 unit PO DAILY 05/20/23 05/20/23 History mcg (2,000 unit) capsule (Vitamin D3) ezetimibe 10 mg tablet 10 mg PO BEDTIME 05/20/23 05/20/23 History indomethacin 25 mg capsule 25 mg PO DAILY 05/20/23 05/20/23 History levothyroxine 112 mcg tablet 112 mcg PO QAM 05/20/23 05/20/23 History potassium gluconate 550 mg (90 mg) 550 mg PO DAILY 05/20/23 05/20/23 History tablet timolol maleate 0.5 % once daily 1 drp EYE-BOTH DAILY 05/20/23 05/20/23 History eye drops vit C 250 mg-E 90 mg-zinc 40 1 tab PO QAM AND QPM 05/20/23 05/20/23 History mg-copper 1 [id number] chew tablet (PreserVision AREDS-2) Allergies Allergy/AdvReac Type Severity Reaction Status Date / Time No Known Drug Allergies Allergy Verified 06/11/22 17:22 Exam Vital Signs (past 8 hours): - 05/19/23 23:28 05/19/23 23:30 05/19/23 23:43 Temperature 97.6 F Pulse Rate 65 66 67 Respiratory Rate 18 Blood Pressure 127/56 L Pulse Oximetry 95 95 93 Oxygen Delivery Method Room Air 05/20/23 00:00 05/20/23 00:35 05/20/23 00:37 Temperature Pulse Rate 67 59 L 61 Respiratory Rate 19 18 Blood Pressure Pulse Oximetry 95 92 94 Oxygen Delivery Method 05/20/23 00:37 05/20/23 00:40 05/20/23 00:40 Temperature Pulse Rate 60 Respiratory Rate 15 Blood Pressure 127/62 107/57 L Pulse Oximetry 96 Oxygen Delivery Method 05/20/23 01:00 05/20/23 01:00 05/20/23 01:30 Temperature Pulse Rate 59 L 55 L Respiratory Rate 14 15 Blood Pressure 130/60 Pulse Oximetry 93 97 Oxygen Delivery Method 05/20/23 01:30 05/20/23 02:00 05/20/23 02:00 Temperature Pulse Rate 59 L Respiratory Rate 13 Blood Pressure 124/60 121/60 Pulse Oximetry 98 Oxygen Delivery Method 05/20/23 02:14 05/20/23 02:14 05/20/23 02:30 Temperature Pulse Rate 59 L 59 L Respiratory Rate 16 19 Blood Pressure 139/60 Pulse Oximetry 98 97 Oxygen Delivery Method 05/20/23 02:31 05/20/23 02:31 05/20/23 02:47 Temperature Pulse Rate 62 Respiratory Rate 19 Blood Pressure 123/56 L Pulse Oximetry 97 Oxygen Delivery Method Room Air 05/20/23 03:38 Temperature 97.4 F L Pulse Rate 54 L Respiratory Rate 18 Blood Pressure 111/51 L Pulse Oximetry 97 Oxygen Delivery Method Oxygen Delivery Method Room Air Const General: cooperative, healthy appearing, comfortable and well developed Eyes General: appearance normal, both eyes and all related structures Resp Auscultation: clear to auscultation bilaterally Cardio Rate: regular rate Rhythm: regular rhythm GI Auscultation: normal bowel sounds Neuro General: patient alert, patient awake and patient oriented x3 Objective Labs 05/19/23 23:40 05/19/23 23:40 Labs: Laboratory Results - last 24 hr 05/19/23 05/19/23 23:40 23:54 WBC 5.0 RBC 3.94 L Hgb 12.2 L Hct 36.7 L MCV 93.0 MCH 31.1 MCHC 33.4 RDW 16.7 H Plt Count 33 L* Neut % (Auto) 46.7 L Lymph % (Auto) 38.6 [place] % (Auto) 8.4 Eos % (Auto) 4.8 H Baso % (Auto) 1.5 Neut # (Auto) 2400 Lymph # (Auto) 1900 [place] # (Auto) 400 Eos # (Auto) 200 Baso # (Auto) 100 Platelet Estimate Decreased on smear RBC Morphology See below Anisocytosis 2+ H PT 10.8 INR 0.9 APTT 34 Sodium 139 Potassium 3.9 Chloride 107 Carbon Dioxide 26 BUN 24 H Creatinine 1.14 Estimated GFR > 60 BUN/Creatinine Ratio 21.1 Glucose 111 H Calcium 8.7 Total Bilirubin 0.5 AST 30 ALT 27 Alkaline Phosphatase 69 Total Creatine Kinase 91 Troponin I < 0.012 Total Protein 5.9 L Albumin 3.5 Globulin 2.4 Albumin/Globulin Ratio 1.5 Ethyl Alcohol < 10 SARS-CoV-2 (PCR) Negative Assessment & Plan Assessment and plan (1) Balance problem: Status: Acute (2) Thrombocytopenia due to defective platelet production: Status: Acute Plan WIll admit the pt for monitoring, neuro checks, CT head reviewed and is negative, discussed with the ER provider decision for admission, exam benign, intact, I am concerned about his low platelet count, unsure significance. He almost has pancytopenia or MDS. Repeat CBC ordered, could be related to his neuro changes, PT/OT consulted, Pt is convinced that this is not Menieres,
--- NOTE | 2023-05-20 05:25 | PC.WOUNDPHOT ---
Bruise to right side. Abrasion on left leg.
[2023-05-20] MEDS: MECLIZINE HCL 12.5 MG TABLET 25 MG PO (05:35)
[2023-05-20] MEDS: LEVOTHYROXINE 112 MCG TABLET PO (05:35)
[2023-05-20 06:23] LABS: Basophils Absolute Auto 100 /uL (0-100); Basophils Percent Auto 1.3 % (0-2); Eosinophils Absolute Auto 200 /uL (0-450); Eosinophils Percent Auto 4.4 % (2-4); Hematocrit 37.2 % (41-53); Lymphocytes Absolute Auto 1700 /uL (1100-4500); Mean Corpuscular HGB Conc 32.3 % (30-36); Mean Corpuscular Hemoglobin 30.5 PG (26-34); Mean Corpuscular Volume 94.2 fL (80-100); Monocytes Absolute Auto 400 /uL (0-900); Monocytes Percent Auto 7.6 % (3-14); Neutrophils Absolute Auto 2700 /uL (1500-7000); Neutrophils Percent Auto 52.7 % (50-75); Red Blood Cell Count 3.95 X10^6/uL (4.5-5.9); Red Cell Distribution Width 16.9 % (11.6-14.8); White Blood Cell Count 5.1 X10^3/uL (4.5-11.0)
[2023-05-20 06:28] LABS: Add Manual Diff / Slide Review SLIDE REVIEW; Platelet Count 36 X10^3/uL (150-400)
[2023-05-20 06:55] LABS: TSH w/ Reflex to FT4 0.14 uIU/mL (0.47-4.68)
[2023-05-20 07:05] LABS: Anisocytosis 2+; Ovalocytes 1+; Platelet Estimate Decreased on smear
[2023-05-20] MEDS: TIMOLOL 0.5% OPHTH 1 DROPS EYE-BOTH (08:09)
[2023-05-20] MEDS: diazePAM 5 MG TABLET PO (08:09)
[2023-05-20 08:25] LABS: Free T4, Direct Thyroxine 1.71 ng/dL (0.78-2.19)
--- NOTE | 2023-05-20 11:15 | PT.IIE ---
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 Mobility and Gait Pt ambulates independently, but reports occasional use of SPC . Activities of Daily Living and IADL's IND with all ADLs and IADLs. Social History Household Members spouse Living Arrangements House Number of Floors (Floors) Two Floors Number of Stairs To Enter/Railing? no NELLI Home Environment Walk in Shower,Built-In Shower Seat Home Equipment Straight Cane,Grab Bars In Shower Additional Social History Comment Pt reports his room and kitchen are on the second floor, but can stay in first floor guest room if needed. First floor bathroom is a tub/ shower without grab bars or other equipment available. He lives with his who can assist him with basic needs if needed. M2 PT-IP Current Condition Start: 05/20/23 11:55 Freq: NEEDED Status: Active Protocol: Document 05/20/23 11:55 AB (Rec: 05/20/23 12:13 AB [id number]) Physical Therapy Current Condition Current Condition Evaluation Date 05/20/23 Treatment Diagnosis imbalance/dizziness Onset Date 05/19/23 M3 PT-IP Subjective Start: 05/20/23 11:55 Freq: NEEDED Status: Active Protocol: Document 05/20/23 11:55 AB (Rec: 05/20/23 12:13 AB [id number]) Subjective Physical Therapy Visit Type Type Initial Evaluation Visit Start Time 10:19 Visit Stop Time 11:15 Total Visit Minutes 56 Physical Therapy Visit Comments Patient Comments Pt presents semi supine in bed and is agreeable to PT evaluation. Therapy Pain Assessment Pain When Pain Assessed At Rest Pain Present Pain Present Denied Pain M4 PT-IP Mobility and Gait Start: 05/20/23 11:55 Freq: NEEDED Status: Active Protocol: Document 05/20/23 11:55 AB (Rec: 05/20/23 12:13 AB [id number]) PT-Bed Mobility Assessment Rolling Level of Assist Independent Supine to Sit Supine to Sit Independent Sit to Supine Sit to Supine Independent Scooting Scooting to Edge of Bed Independent PT-Transfer Assessment Sit to and From Stand Sit to and from Stand Independent,Use of Upper Extremities Equipment Transfer Assistive Device Gait Belt Transfers Transfer Destination Chair Transfer Technique Stand Step Pivot Transfer Ability Level of Assist Independent,Use of Upper Extremities Comments Mobility Comments Pt is able to perform all bed mobility with independence. Pt was assessed for orthostatic hypotension: BP in supine is 102/54 mmHg, 104/52 in sitting , and 102/51 in standing. However, he reports increased symptoms with each change in position. The pt was also able to perform STS and transfers with independence and no instability noted. He ambulated and performed stairs as below, as well as balance testing. At end of session, pt returned to chair with all needs met, call light within reach, and is speaking to MD. Gait Assessment Gait Gait Assistance Required: Standby Assistance Distance (Feet) 200 Assistive Devices Assistive Device Gait Belt Gait Deviations General Gait Pattern Decreased Stride Length, Decreased Feet Clearance Factors Limiting Gait Function Factors Limiting Gait Function Decreased Strength Comments Gait Comments Pt is able to ambulated 200ft without AD and with SBA, but SPC is available to use of ineeded. No significant LOB is noted, but slight increase in instability is noted with dynamic balance compared to static balance. Stair Climbing Assessment Evaluation Level of Assist On Stairs Standby Assistance Devices Stair Climbing Assistive Devices Left Railing,Right Railing Technique/Endurance Stair Climbing Direction Ascend and Descend Stair Climbing Technique Step to Step Number of Steps Climbed 3 Query Text: Stair Climbing Set # Repetitions (reps) 5 Comments Stair Climbing Comments Pt was able to ascend/descend 3x5 steps (15 steps total) with bilateral hand rails and SBA. He uses step to step technique due to left knee deficits (will be getting knee replacement). PT-Balance Assessment Sitting Balance and Reactions Static Sitting Balance Ability Normal Dynamic Sitting Balance Ability Normal Standing Balance and Reactions Static Standing Balance Ability Good Dynamic Standing Balance Ability Fair Device Used none Comments Other Balance Tests/Deviations/Treatment normal YULIA eyes open: no : abnormal sway normal YULIA eyes closed: mild abnormal sway, reproduction of dizziness symptoms narrow YULIA EO: mild abnormal sway narrow YULIA EC: mod abnormal sway, reproduction of dizziness symptoms M5 PT-IP Objective Assessments Start: 05/20/23 11:55 Freq: NEEDED Status: Active Protocol: Document 05/20/23 11:55 AB (Rec: 05/20/23 12:13 AB [id number]) Orientation Orientation/Cognition Level of Alertness Alert Orientation Name,Age,Birthday,Month,Date, Year,Day of Week,Place, Situation Language Function Ability No Deficits Noted Safety Awareness Understands Safety Issues Memory Description No Deficits Noted Gross Range of Motion Upper Extremity ROM Assessment Within Functional Limits Lower Extremity ROM Assessment Within Functional Limits Strength Upper Extremity Strength Assessment Within Functional Limits Lower Extremity Strength Assessment Within Functional Limits M6 PT-IP Treatment Start: 05/20/23 11:55 Freq: NEEDED Status: Active Protocol: Document 05/20/23 11:55 AB (Rec: 05/20/23 12:13 AB [id number]) Physical Therapy Treatment Education Education Provided Safety Brace Education Patient M7 PT-IP Assessment and Plan Start: 05/20/23 11:55 Freq: NEEDED Status: Active Protocol: Document 05/20/23 11:55 AB (Rec: 05/20/23 12:13 AB [id number]) PT Summary Assessment and Plan Potential Rehabilitation Potential Good Status of Condition at Evaluation Stable Summary Impairments Balance,Gait Assessment Summary Phi Cantrell is an 88 year old male patient presenting with complaints of dizziness and imbalance when performing functional mobility. Today's PT evaluation revealed his is able to perform bed mobility, STS and transfers with independence, but requires SBA for ambulation and stairs due to symptoms and slight increase in instability with dynamic balance. Balance testing performed today seems to indicate that the pt may have peripheral vestibular dysfunction, as demonstrated by the reproduction of his symptoms when his vision is denied. Based on these findings, PT recommends discharge to home with continued outpatient PT focusing on vestibular therapy to further determine whether peripheral vestibular dysfunction is contributing to his symptoms. Goals Bed Mobility Goal Independent Transfer Goal Independent Gait Goal Independent Gait Distance 300 Other Goals Pt to ascend/descend 15 steps with 1 hand rail independently . Days to Meet Goals 5 Frequency of Treatment Frequency Of Treatment Discharge Treatment Plan Physical Therapy Treatment Plan Therapeutic Exercise,Balance Retraining,Discharge Planning, Neuromuscular Re-ed Recommendations To Nursing Amount of Assist Needed Standby Assistance Discharge Recommendations PT Discharge Recommendations Home,Outpatient PT Other Discharge Recommendations Outpatient VBRT PT is recommended Transportation Needs at Discharge Private Vehicle
--- NOTE | 2023-05-20 11:39 | PM.HP.1 ---
History of Present Illness History of Present Illness Date Patient Seen: 05/20/23 Chief complaint: lost balance x1 day Narrative: 88-year-old male with remote history Meniere's, thyroid cancer with thyroidectomy, dyslipidemia, myelodysplastic syndrome, dyslipidemia who presents with complaint of feeling off balance. Patient states he was feeling fine this afternoon he went to a local football game, he was seated throughout the game and then when he got up felt very off balance. He states had to hang onto the railing and states in order to get back to the car. States he went to bed this evening, woke up and continued to be very off balance and presents to the ED. Patient states no vertigo symptoms no dizziness. He states he just feels like his balance is off. He denies headache no vision changes, no new numbness, tingling, no lateralizing weakness. Patient states legs feel a little weak but both of them equally. Patient states no facial droop or difficulty with speech. He notes he is had Meniere's in the past but he would have vertigo like symptoms with that. He states it was approximately 20 years ago he had about 4 years of symptoms and then resolved. Patient denies any chest pain or pressure, no shortness of breath, no nausea, no vomiting, no diarrhea constipation today but did have 3 episodes of loose stools yesterday. Denies any dysuria, urgency frequency or incontinence. Patient does not take any anticoagulants, takes levothyroxine and had his thyroid removed for thyroid cancer remotely, had prior L4/L5 decompression, radioactive iodine and laser prostatectomy. Patient does have tympanostomy tube in the left ear. Denies any allergies. No tobacco, alcohol or illicit. Dr. Violetta klein as his primary care physician. He is accompanied by his . [facility] Medical History (Updated 05/20/23 @ 05:11 by Juan Carlos Nieves MD) Patient denies medical problems Social History household members: spouse Smoking Status: Former smoker alcohol intake: never Meds Home Medications and Allergies Home Medications Medication Instructions Recorded Confirmed Type diazepam 5 mg tablet 5 mg PO BEDTIME 11/17/20 05/20/23 History latanoprost 0.005 % eye drops 1 drp EYE-BOTH BEDTIME 11/17/20 05/20/23 History pramipexole 1 mg tablet 1 mg PO BEDTIME 11/17/20 05/20/23 History rosuvastatin 5 mg tablet 20 mg PO BEDTIME 11/17/20 05/20/23 History phenazopyridine 100 mg tablet 100 mg PO TID PRN pain 6 doses #6 04/28/22 05/20/23 Rx (Pyridium) tabs ascorbic acid (vitamin C) 500 mg 500 mg PO DAILY 05/20/23 05/20/23 History tablet cholecalciferol (vitamin D3) 50 2,000 unit PO DAILY 05/20/23 05/20/23 History mcg (2,000 unit) capsule (Vitamin D3) ezetimibe 10 mg tablet 10 mg PO BEDTIME 05/20/23 05/20/23 History indomethacin 25 mg capsule 25 mg PO DAILY 05/20/23 05/20/23 History levothyroxine 112 mcg tablet 112 mcg PO QAM 05/20/23 05/20/23 History potassium gluconate 550 mg (90 mg) 550 mg PO DAILY 05/20/23 05/20/23 History tablet timolol maleate 0.5 % once daily 1 drp EYE-BOTH DAILY 05/20/23 05/20/23 History eye drops vit C 250 mg-E 90 mg-zinc 40 1 tab PO QAM AND QPM 05/20/23 05/20/23 History mg-copper 1 [id number] chew tablet (PreserVision AREDS-2) Allergies Allergy/AdvReac Type Severity Reaction Status Date / Time No Known Drug Allergies Allergy Verified 06/11/22 17:22 Exam Vital Signs (past 8 hours): - 05/20/23 08:00 Temperature 97.7 F Pulse Rate 56 L Respiratory Rate 16 Blood Pressure 114/58 L Pulse Oximetry 96 Oxygen Flow Rate 0 Oxygen Delivery Method Room Air Oxygen Flow Rate 0 Narrative Exam Narrative: Gen: alert, WD/WN, NAD HEENT: PERRL, EOMI, face symmetric Lungs: claer CV: RRR, no murmur Abd: soft Ext: no edema Neuro: well oriented, no unilateral weakness, no aphasia or dysarthria Skin: no petechiae Objective Labs 05/20/23 06:00 05/19/23 23:40 Labs: Laboratory Results - last 24 hr 05/19/23 05/19/23 05/20/23 23:40 23:54 06:00 WBC 5.0 5.1 RBC 3.94 L 3.95 L Hgb 12.2 L 12.0 L Hct 36.7 L 37.2 L MCV 93.0 94.2 MCH 31.1 30.5 MCHC 33.4 32.3 RDW 16.7 H 16.9 H Plt Count 33 L* 36 L* Neut % (Auto) 46.7 L 52.7 Lymph % (Auto) 38.6 34.0 [place] % (Auto) 8.4 7.6 Eos % (Auto) 4.8 H 4.4 H Baso % (Auto) 1.5 1.3 Neut # (Auto) 2400 2700 Lymph # (Auto) 1900 1700 [place] # (Auto) 400 400 Eos # (Auto) 200 200 Baso # (Auto) 100 100 Platelet Estimate Decreased on smear Decreased on smear Plt Morphology Comment RBC Morphology See below See below Anisocytosis 2+ H 2+ H Ovalocytes 1+ H PT 10.8 INR 0.9 APTT 34 Sodium 139 Potassium 3.9 Chloride 107 Carbon Dioxide 26 BUN 24 H Creatinine 1.14 Estimated GFR > 60 BUN/Creatinine Ratio 21.1 Glucose 111 H Calcium 8.7 Total Bilirubin 0.5 AST 30 ALT 27 Alkaline Phosphatase 69 Total Creatine Kinase 91 Troponin I < 0.012 Total Protein 5.9 L Albumin 3.5 Globulin 2.4 Albumin/Globulin Ratio 1.5 TSH 0.14 L Free T4 1.71 Ethyl Alcohol < 10 SARS-CoV-2 (PCR) Negative Assessment & Plan Assessment & Plan narrative: 1. Acute weakness, unexplained -pt didn't have vertigo typical of previous Meniere's, no unilateral weakness -Brain MRI, head/neck CTA both normal -nl tele -did well with P.T. this morning and safe to discharge -home today 2. Myelodysplastic syndrome -low plts, anemia c/w diagnosis, followed at [facility] 3. Hx thyroid CA -TSH appropriately suppressed with nl FT4 DIPS: discharge home
--- NOTE | 2023-05-20 14:31 | PC.NURSE ---
Pt A&Ox4, VSS. Discharge information reviewed and IV removed by SHWETA Clark. Patient belongings gathered. Escorted patient downstairs in wheelchair and discharged home with ride from .
--- NOTE | 2023-05-20 14:49 | CM.DANOTE ---
DCP Assessment Note: Patient is a 88yo M here following some struggles with balance/dizziness. PCP naveen Sutton [employer] Medicare and self pay [employer] reviewed EMR. Per provider, likely to d/c today. RN Nataliia spoke with patient while providing PATEL form. Patient reported to RN/train planner Nataliia that e is indep at home, uses a cane, drives, and lives with . Patient reports no needs from CM team. Per PT, cleared for home. Plan: patient to d/c home with family in POV when stable. Cm team will follow as needed. ARLENE Bowman Discharge Planning/Care Management Advanced directive, confirm from FAMILY Start: 05/20/23 03:44 Freq: Q24H Status: Discharge Protocol: Document 05/20/23 03:44 (Rec: 05/20/23 03:48 [id number]) Advance Directive, confirm on record Time 03:50 Person contacted patient Copy received No CM Discharge Assessment Start: 05/20/23 14:43 Freq: Status: Discharge Protocol: Document 05/20/23 14:43 SL (Rec: 05/20/23 14:49 [id number]) Discharge Planning Assessment Assigned Towboat Engineer ARLENE Gibson DPOA/Assigned Designee Name Randa Johnson (partner) Contact Information [phone] Advance Directives? Yes Advance Directives on File No History Provided By Medical Record Prior Living Arrangements House Household Members spouse Type of transporation used prior to Drives own vehicle admit Independent with ADL's Yes Is patient alert and oriented? Yes DME Already Rented / Owned Cane Barriers to Discharge No Discharge Plan Home Transportation Arrangement family with POV Referrals Initiated None needed Whiteboard Updated in Patient Room with No name and ext. # of Towboat Engineer Review Status In Process Next Review Type Continued Stay Review
== END 2023-05-20 12:30 | disposition home or self-care (01) ==
LOC: ED 05-20 02:34 → AC 05-20 02:35
PROVIDERS: Admitting Provider Internal Medicine; Emergency Provider Emergency Medicine; Family Provider Internal Medicine Hematology & Oncology; PCP Internal Medicine; Visit Provider Internal Medicine
DX: R42 Dizziness and giddiness (principal); R26.89 Other abnormalities of gait and mobility; D69.59 Other secondary thrombocytopenia; R29.700 NIHSS score 0; D46.9 Myelodysplastic syndrome, unspecified; Z85.850 Personal history of malignant neoplasm of thyroid; Z11.52 Encounter for screening for COVID-19
CPT/HCPCS: 36415; 70450; 70496; 70498; 70551; 80053; 80320; 81003; 82550; 84439; 84443; 84484; 85025; 85610; 85730; 87635; 93005; 93010; 96360; 97162; 97535; 99284; 99285; C9803; G0378; Q9967

== ENCOUNTER → 2023-07-04 06:59 | Outpatient (CLI) | payer OTHER, SELFPAY ==
[2023-05-20 02:47] VITALS: BMI 22.0
[2023-07-04 08:33] LABS: Thyroid Stimulating Hormone 0.387 uIU/mL (0.47-4.68)
[2023-07-05 19:44] LABS: Thyroglobulin Antibodies < 1.0 IU/mL (0.0-0.9)
== END ==
PROVIDERS: Family Provider Internal Medicine Hematology & Oncology; PCP Internal Medicine; Referring Provider Internal Medicine; Visit Provider Internal Medicine
DX: C73 Malignant neoplasm of thyroid gland (principal); E89.0 Postprocedural hypothyroidism
CPT/HCPCS: 36415; 84432; 84443; 86800

== ENCOUNTER 2023-07-11 09:28 | Emergency (ER) | payer OTHER, SELFPAY ==
[2023-05-20 02:47] VITALS: BMI 22.0
[2023-07-11] VITALS (8 sets, daily range): BP systolic 120–145; BP diastolic 60–67; PULSE 65–74; RESP 18; TEMP 36.7; O2SAT 94–97; BMI 25.8
--- NOTE | 2023-07-11 09:53 | ED_ITS ---
HPI - General Adult General Chief complaint: Upper Respiratory Symptoms Stated complaint: resp issues Time Seen by Provider: 07/11/23 09:53 Source: patient Mode of arrival: Ambulatory History of Present Illness HPI narrative: 88-year-old gentleman with a history of hypothyroidism, hyperlipidemia, Parkinson's disease presents with upper respiratory symptoms that began 6 days ago. Initially he had fevers and chills lasting around 2 days. He continues to have dry cough moderate shortness of breath complains of wheezing fevers have essentially resolved he still has a runny nose and a sore throat. Has no prior history of any pulmonary disease or use of inhalers. He notes that he is tested negative for COVID multiple times and his , who began having upper respiratory symptoms 24 hours after heated has tested positive a number of times. He reportedly tested for influenza yesterday and that was negative as well. Related Data Home Medications Medication Instructions Recorded Confirmed diazepam 5 mg tablet 5 mg PO BEDTIME 11/17/20 05/20/23 latanoprost 0.005 % eye drops 1 drp EYE-BOTH BEDTIME 11/17/20 05/20/23 pramipexole 1 mg tablet 1 mg PO BEDTIME 11/17/20 05/20/23 rosuvastatin 5 mg tablet 20 mg PO BEDTIME 11/17/20 05/20/23 ascorbic acid (vitamin C) 500 mg 500 mg PO DAILY 05/20/23 05/20/23 tablet cholecalciferol (vitamin D3) 50 2,000 unit PO DAILY 05/20/23 05/20/23 mcg (2,000 unit) capsule (Vitamin D3) ezetimibe 10 mg tablet 10 mg PO BEDTIME 05/20/23 05/20/23 indomethacin 25 mg capsule 25 mg PO DAILY 05/20/23 05/20/23 levothyroxine 112 mcg tablet 112 mcg PO QAM 05/20/23 05/20/23 potassium gluconate 550 mg (90 mg) 550 mg PO DAILY 05/20/23 05/20/23 tablet timolol maleate 0.5 % once daily 1 drp EYE-BOTH DAILY 05/20/23 05/20/23 eye drops vit C 250 mg-E 90 mg-zinc 40 1 tab PO QAM AND QPM 05/20/23 05/20/23 mg-copper 1 il-ixjevy-ylggob chew tablet (PreserVision AREDS-2) Previous Rx's Medication Instructions Recorded phenazopyridine 100 mg tablet 100 mg PO TID PRN pain 6 doses #6 04/28/22 (Pyridium) tabs albuterol sulfate 90 mcg/actuation 2 puff inhalation Q6H PRN 07/11/23 aerosol inhaler shortness of breath or wheezing #6.7 grams prednisone 20 mg tablet 20 mg PO DAILY #5 tabs 07/11/23 Allergies Allergy/AdvReac Type Severity Reaction Status Date / Time No Known Drug Allergies Allergy Verified 07/11/23 09:38 Review of Systems Review of Systems Narrative: Pertinent positive and negative findings as per HPI Patient History Medical History (Updated 07/11/23 @ 11:47 by Darya Joiner MD) Myelodysplastic syndrome Thyroid cancer Hypothyroid Hyperlipidemia Surgical History (Updated 07/11/23 @ 11:30 by Darya Joiner MD) H/O thyroidectomy Social History household members: spouse Smoking Status: Former smoker alcohol intake: never Smoking Status: Former smoker alcohol intake frequency: holidays/special occasions only Substance Use Type: does not use Exam Initial Vital Signs Initial Vital Signs: Vital Signs Temperature 98.0 F 07/11/23 09:30 Pulse Rate 74 07/11/23 09:30 Respiratory Rate 18 07/11/23 09:30 Blood Pressure 145/67 H 07/11/23 09:30 Pulse Oximetry 96 07/11/23 09:30 Oxygen Delivery Method Room Air 07/11/23 09:30 General: Healthy appearing, in no acute distress. Able to give a complete and coherent history. Well-nourished well-developed HEENT: Moist mucous membranes, normal sclera with reactive pupils, Neck: No JVD, supple Respiratory: Lungs with significant wheeze in all lung mixon, no rhonchi, no rales Full and symmetrical air movement Cardiac: Regular rate and rhythm no murmurs no bruits Abdomen: Soft, nontender, good bowel tones, no flank pain Skin: Warm and dry, no rashes Neurologic: Grossly neurologically intact with no obvious asymmetries or abnormalities Extremities: No trauma, well perfused Psych: Cooperative, appropriate insight and affect Course Vital Signs Vital signs: Vital Signs - 8 hr 12/13/23 09:30 Temperature 98.0 F Pulse Rate 74 Respiratory Rate 18 Blood Pressure 145/67 H Pulse Oximetry 96 Oxygen Delivery Method Room Air Medical Decision Making MDM Narrative Medical decision making narrative: CC: Upper respiratory symptoms for 6 days Complicating co-morbidities: Age, myelodysplastic syndrome, history of thyroid cancer Data collected from: patient Medical records reviewed: Primary care notes from April of 2023 are reviewed Differential considered: Viral syndrome, pneumonia, congestive heart failure Exam documented above, pertinent findings include: Benign-appearing exam significant wheeze in all lung imxon Lab Test results independently reviewed as above. Pertinent findings: Respiratory panel returned positive for rhino virus Imaging studies independently reviewed: Chest x-ray shows hazy opacity in the left lung base. Radiologist favors atelectasis rather than infiltrate Treatments: Oral prednisone, DuoNeb Re-evaluations: Wheezes significantly improved after oral prednisone and DuoNeb Discussion: Findings reviewed with the patient. Discussed rhino virus, anticipated course, complications, expected cough. Discussed prednisone and inhaler given his significant wheeze prescriptions will be sent to [facility]. At this point there is no evidence of consolidated bacterial pneumonia no indication for hospitalization. Discharge Plan Departure Patient Disposition: Home Clinical Impression: Rhinovirus infection, Wheeze Instructions: DI for Viral Upper Respiratory Infection -- Adult Activity Restrictions/Additional Instructions: Thank you for coming in today You have rhino virus, this is a virus that causes a common cold. The symptoms y ou are having are absolutely expected. Typically after 5-7 days we consider you no longer infectious. There is no indication for antibiotics or other antiviral medications at this time. With a significant wheeze that you had on clinical exam, I gave you a dose of prednisone in the emergency department as well as a breathing treatment. The wheeze was significantly improved after this. I am going to recommend 5 days of 20 mg of prednisone as well as an albuterol inhaler to help with any wheeze or if you have a persistent dry irritating cough. You can use 2 puffs of the inhaler with a spacer every 6 hours as needed. Prescriptions were electronically transmitted to [facility] If you find that you are getting worse or develop any new symptoms, please feel free to return to the emergency department for further evaluation. Prescriptions: New prednisone 20 mg tablet 20 mg PO DAILY Qty: 5 0RF albuterol sulfate 90 mcg/actuation HFA aerosol inhaler 2 puff inhalation Q6H PRN (Reason: shortness of breath or wheezing) Qty: 6.7 0RF Rx Instructions: Please dispense with spacer and inhaler use instruction No Action phenazopyridine [Pyridium] 100 mg tablet 100 mg PO TID PRN (Reason: pain) Qty: 6 0RF pramipexole 1 mg tablet 1 mg PO BEDTIME latanoprost 0.005 % drops 1 drp EYE-BOTH BEDTIME diazepam 5 mg tablet 5 mg PO BEDTIME rosuvastatin 5 mg tablet 20 mg PO BEDTIME levothyroxine 112 mcg tablet 112 mcg PO QAM ascorbic acid (vitamin C) 500 mg Tablet 500 mg PO DAILY indomethacin 25 mg Capsule 25 mg PO DAILY ezetimibe 10 mg tablet 10 mg PO BEDTIME timolol maleate 0.5 % Drops, Once Daily 1 drp EYE-BOTH DAILY cholecalciferol (vitamin D3) [Vitamin D3] 50 mcg (2,000 unit) Capsule 2,000 unit PO DAILY potassium gluconate 550 mg (90 mg) Tablet 550 mg PO DAILY PreserVision AREDS-2 250-90-40-1 mg Tablet,Chewable 1 tab PO QAM AND QPM Referrals: Violetta Clark MD [Primary Care Provider] - Stand Alone Forms: Patient Portal/API
[2023-07-11] MEDS: ALBUTEROL/IPRATROPIUM 3 ML AMPUL INH (10:00)
--- NOTE | 2023-07-11 10:03 | DI.RAD.S_ITS ---
PROCEDURE: XR CHEST 1V INDICATIONS: wheeze TECHNIQUE: One view of the chest was acquired. COMPARISON: [facility], CR, XR CHEST 2V, 03/31/2022, 14:59. FINDINGS: Surgical changes and devices: Clips in the region of the lower neck. Lungs and pleura: Hazy opacity at the left lung base. No pleural effusions or pneumothorax. Mediastinum: Mediastinal contours appear normal. Heart size is normal. Bones and chest wall: No suspicious bony lesions. Overlying soft tissues appear unremarkable. IMPRESSION: Hazy opacity at the left lung base. Favor atelectasis. Dictated by: Bakari Sabillon M.D. on 07/11/2023 at 10:32 Approved by: Bakari Sabillon M.D. on 07/11/2023 at 10:33
[2023-07-11] MEDS: predniSONE 20 MG TABLET 60 MG PO (10:23)
[2023-07-11 11:19] LABS: Adenovirus Not Detected (Not Detect); B. parapertussis Not Detected (Not Detecte); Bordetella pertussis Not Detected (Not Detect); Chlamydophila pneumoniae Not Detected (Not Detect); Coronavirus 229E Not Detected (Not Detect); Coronavirus HKU1 Not Detected (Not Detect); Coronavirus NL 63 Not Detected (Not Detect); Coronavirus OC43 Not Detected (Not Detect); Human Metapneumovirus Not Detected (Not Detect); Human Rhinovirus/Enterovirus Detected (Not Detect); Influenza A Not Detected (Not Detect); Influenza B Not Detected (Not Detect); Mycoplasma pneumoniae Not Detected (Not Detect); Parainfluenza Virus 1 Not Detected (Not Detect); Parainfluenza Virus 2 Not Detected (Not Detect); Parainfluenza Virus 3 Not Detected (Not Detect); Parainfluenza Virus 4 Not Detected (Not Detect); Respiratory Syncytial Virus Not Detected (Not Detect); SARS- CoV-2 Not Detected (Not Detecte)
== END 2023-07-11 11:52 | disposition home or self-care (01) ==
PROVIDERS: Emergency Provider Emergency Medicine; Family Provider Internal Medicine Hematology & Oncology; PCP Internal Medicine
DX: B34.8 Other viral infections of unspecified site (principal); Z11.52 Encounter for screening for COVID-19; Z87.891 Personal history of nicotine dependence
CPT/HCPCS: 71045; 87633; 94640; 99283

== ENCOUNTER → 2023-07-26 08:39 | Outpatient (CLI) | payer OTHER, SELFPAY ==
[2023-05-20 02:47] VITALS: BMI 22.0
[2023-07-26 10:21] LABS: Thyroid Stimulating Hormone 1.44 uIU/mL (0.47-4.68)
== END ==
PROVIDERS: Family Provider Internal Medicine Hematology & Oncology; PCP Internal Medicine; Referring Provider Internal Medicine; Visit Provider Internal Medicine
DX: C73 Malignant neoplasm of thyroid gland (principal); E89.0 Postprocedural hypothyroidism
CPT/HCPCS: 36415; 84443

== ENCOUNTER → 2023-09-05 08:07 | Outpatient (CLI) | payer OTHER, SELFPAY ==
[2023-05-20 02:47] VITALS: BMI 22.0
--- NOTE | 2023-09-05 08:09 | DI.RAD.S_ITS ---
PROCEDURE: XR CHEST 2V INDICATIONS: cough TECHNIQUE: 2 views of the chest were acquired. COMPARISON: [facility], CR, XR CHEST 1V, 07/11/2023, 10:17. [facility], CR, XR CHEST 2V, 03/31/2022, 14:59. FINDINGS: Surgical changes and devices: None. Lungs and pleura: Hazy bibasilar airspace opacities. Mediastinum: Mediastinal contours are normal. Heart size is normal. Bones and chest wall: No suspicious bony abnormalities. Soft tissues appear unremarkable. IMPRESSION: Hazy bibasilar airspace opacities, could represent infection, atelectasis or aspiration. Recommend follow-up in 1-2 months with chest x-ray to ensure resolution. Dictated by: Lázaro Sales M.D. on 09/05/2023 at 9:05 Approved by: Lázaro Sales M.D. on 09/05/2023 at 9:07
== END ==
LOC: RAD 08:09
PROVIDERS: Family Provider Internal Medicine Hematology & Oncology; PCP Internal Medicine; Referring Provider Nurse Practitioner Family; Visit Provider Nurse Practitioner Family
DX: R05.9 Cough, unspecified (principal)
CPT/HCPCS: 71046

== ENCOUNTER 2024-05-17 05:42 | Emergency (ER) | payer MEDICARE, SELFPAY ==
[2023-05-20 02:47] VITALS: BMI 22.0
--- NOTE | 2024-05-17 05:46 | ED_ITS ---
HPI - General Adult <Marcelina Hurst DO - Last Filed: 05/19/24 07:04> General Chief complaint: Abdominal Pain Stated complaint: constipated x1 week possible blockage Time Seen by Provider: 05/17/24 05:46 Source: patient, RN notes reviewed and old records reviewed Mode of arrival: Family Vehicle Limitations: no limitations History of Present Illness HPI narrative: 89-year-old male history of hypothyroidism, hyperlipidemia, Parkinson's disease, presumptive MDS who presents with complaint of constipation patient states he has not had a bowel movement about 6 or 7 days. States he has not had any fevers or chills, no nausea or vomiting. States his belly felt a little full but not particularly painful. Denies any distention. States he has had flatus regularly. States no difficulty with urination. Denies any chest pain or shortness of breath. Notes he had been taking hydrocodone after knee replacement about a month ago. He just took his last dose yesterday. States he has been taking MiraLax but has not had a bowel movement. He tried enemas last night and once this morning without any improvement in his symptoms. States like the stool feels like it is little bit higher up and not in the rectal vault Patient states has not taken any additional stool softeners. States no prior bowel obstructions. Denies any prior abdominal surgeries. Denies any drug allergies. No tobacco, alcohol or recreational drugs. Dr. Violetta Clark as his primary care physician. Related Data Home Medications Medication Instructions Recorded Confirmed diazepam 5 mg tablet 5 mg PO BEDTIME 11/17/20 09/10/23 latanoprost 0.005 % eye drops 1 drp EYE-BOTH BEDTIME 11/17/20 09/10/23 pramipexole 1 mg tablet 1 mg PO BEDTIME 11/17/20 09/10/23 ascorbic acid (vitamin C) 500 mg 500 mg PO DAILY 05/20/23 09/10/23 tablet cholecalciferol (vitamin D3) 50 2,000 unit PO DAILY 05/20/23 09/10/23 mcg (2,000 unit) capsule (Vitamin D3) ezetimibe 10 mg tablet 10 mg PO BEDTIME 05/20/23 09/10/23 potassium gluconate 550 mg (90 mg) 550 mg PO DAILY 05/20/23 09/10/23 tablet vit C 250 mg-E 90 mg-zinc 40 1 tab PO QAM AND QPM 05/20/23 09/10/23 mg-copper 1 sm-ybizxm-fllfsr chew tablet (PreserVision AREDS-2) levothyroxine 100 mcg tablet 100 mcg PO QAM 09/05/23 09/10/23 rosuvastatin 10 mg tablet 10 mg PO DAILY 09/05/23 09/10/23 timolol maleate 0.5 % eye drops 1 drp EYE-BOTH QAM 09/05/23 09/10/23 Previous Rx's Medication Instructions Recorded albuterol sulfate 90 mcg/actuation 2 puff inhalation Q6H PRN 07/11/23 aerosol inhaler shortness of breath or wheezing #6.7 grams prednisone 20 mg tablet 20 mg PO DAILY #5 tabs 07/11/23 benzonatate 100 mg capsule 100 mg PO BID PRN cough #20 caps 09/05/23 Allergies Allergy/AdvReac Type Severity Reaction Status Date / Time No Known Drug Allergies Allergy Verified 09/10/23 12:56 Review of Systems <Marcelina Hurst DO - Last Filed: 05/19/24 07:04> Review of Systems ROS Unobtainable: All systems reviewed & are unremarkable except as noted in HPI and below Patient History <Marcelina Hurst DO - Last Filed: 05/19/24 07:04> Medical History Myelodysplastic syndrome Thyroid cancer Hypothyroid Hyperlipidemia Surgical History H/O thyroidectomy Social History household members: spouse Smoking Status: Former smoker alcohol intake: never Smoking Status: Former smoker alcohol intake frequency: holidays/special occasions only Substance Use Type: does not use Exam <DO Nico Carson Last Filed: 05/19/24 07:04> Narrative Exam Narrative: GENERAL: Alert and oriented x three, well-appearing elderly male in mild distress. HEENT: Head normocephalic, atraumatic, EOMI, pupils reactive, face symmetric, moist mucous membranes NECK: Supple, full range of motion CARDIOVASCULAR: Regular rate and rhythm without murmurs, rubs or gallops. RESPIRATORY: Breath sounds equal bilaterally, no wheezes rales or rhonchi. ABDOMEN: Soft, nontender. Nondistended. Normoactive bowel sounds all 4 quadrants. No guarding or rebound, rigidity, no mass : No CVA tenderness EXTREMITIES: Normal range of motion, no clubbing or edema. Neurovascularly intact NEUROLOGICAL: Cranial nerves II through XII grossly intact. Moving all extremities SKIN: Warm, dry, no petechiae, no rashes or lesions. Initial Vital Signs Initial Vital Signs: Vital Signs Temperature 98.2 F 05/17/24 05:55 Pulse Rate 77 05/17/24 05:55 Respiratory Rate 18 05/17/24 05:55 Blood Pressure 130/86 05/17/24 05:55 Pulse Oximetry 96 05/17/24 05:55 Oxygen Delivery Method Room Air 05/17/24 05:55 <Ruth Ann White DO - Last Filed: 05/17/24 08:13> Initial Vital Signs Initial Vital Signs: Vital Signs Temperature 98.2 F 05/17/24 05:55 Pulse Rate 77 05/17/24 05:55 Respiratory Rate 18 05/17/24 05:55 Blood Pressure 130/86 05/17/24 05:55 Pulse Oximetry 96 05/17/24 05:55 Oxygen Delivery Method Room Air 05/17/24 05:55 Course <Marcelina Hurst DO - Last Filed: 05/19/24 07:04> Orders Ordered: Discontinued Medications Magnesium Citrate (Magnesium Citrate 300 Ml Solution) 300 ml PO NOW ONE Stop: 05/17/24 07:38 Last Admin: 05/17/24 08:04 Dose: 300 ml Documented By: GISELLE Vital Signs Vital signs: Vital Signs - 8 hr 05/17/24 05:55 05/17/24 08:05 Temperature 98.2 F Pulse Rate 77 Respiratory Rate 18 16 Blood Pressure 130/86 Pulse Oximetry 96 Oxygen Delivery Method Room Air <Ruth Ann White DO - Last Filed: 05/17/24 08:13> Orders Ordered: Discontinued Medications Magnesium Citrate (Magnesium Citrate 300 Ml Solution) 300 ml PO NOW ONE Stop: 05/17/24 07:38 Last Admin: 05/17/24 08:04 Dose: 300 ml Documented By: GISELLE Vital Signs Vital signs: Vital Signs - 8 hr 05/17/24 05:55 05/17/24 08:05 Temperature 98.2 F Pulse Rate 77 Respiratory Rate 18 16 Blood Pressure 130/86 Pulse Oximetry 96 Oxygen Delivery Method Room Air Medical Decision Making <Marcelina Hurst, - Last Filed: 05/19/24 07:04> [facility] Narrative Medical decision making narrative: 89-year-old male with symptoms that seem likely consistent with opioid induced constipation. Patient did recently stop opioids after knee replacement. Has been taking MiraLax daily without any improvement tried enema last night and this morning without improvement. No nausea or vomiting, states he has had flatus. No abdominal distention or pain reported. Elderly appearing but well-appearing patient with appropriate vitals. Abdominal x-ray pending. Dr. White-patient signed out to me by Dr. Hurst. Seen evaluated patient myself. Was previously taking opiate medications but stopped yesterday. X-ray does show significant constipation. Also calcifications noted in left hemipelvis. No prior CTs to compare. Patient feels like he has pressure in his rectum no significant left lower quadrant pain. Discussed with patient he can have an outpatient CT. He is passing gas abdomen is soft nondistended no peritoneal signs no nausea or vomiting signs symptoms consistent with constipation <Ruth Ann White DO - Last Filed: 05/17/24 08:13> Imaging Data Abdominal x-ray: Radiologist's Impression: Preliminary report nonobstructive bowel gas pattern with large trans colonic stool burden. 2. Atherosclerotic calcifications. There is a bulge of calcifications in left hemipelvis measuring 2 cm adjacent to inferior aspect of SI joint. Could reflect some heterotrophic calcifications of joint or displaced calcifications of left iliac aneurysm among other etiologies. Comparison with prior CTs recommended. If not available can schedule nonemergent CT of the abdomen pelvis with contrast [facility] Narrative Medical decision making narrative: 89-year-old male with symptoms that seem likely consistent with opioid induced constipation. Patient did recently stop opioids after knee replacement. Has been taking MiraLax daily without any improvement tried enema last night and this morning without improvement. No nausea or vomiting, states he has had flatus. No abdominal distention or pain reported. Elderly appearing but well-appearing patient with appropriate vitals. Abdominal x-ray Dr. White-patient signed out to me by Dr. Hurst. Seen evaluated patient myself. Was previously taking opiate medications but stopped yesterday. X-ray does show significant constipation. Also calcifications noted in left hemipelvis. No prior CTs to compare. Patient feels like he has pressure in his rectum no significant left lower quadrant pain. Discussed with patient he can have an outpatient CT. He is passing gas abdomen is soft nondistended no peritoneal signs no nausea or vomiting signs symptoms consistent with constipation Discharge Plan Departure Patient Disposition: Home Clinical Impression: Constipation Instructions: DI for Constipation Activity Restrictions/Additional Instructions: Follow up with your physician if you are not having any improvement. Stopping your opiate medication will help with your bowel movements, regular movement throughout the day will also help to stimulate bowel activity. Continue to talk your miralax daily. You can add colace 1-2 tablets until you start to have regular stools. Drink 1/2 bottle of magnesium citrate, wait 4-5 hours if you have not had a bowel movement drink the other half. Please return if you have new or worsening abdominal pain, any nausea or vomiting, if you are continuing not to have bowel movements and not passing gas or flatus, fevers or other new or concerning changes. -you may require an outpatient CT scan. You have some calcifications in the left lower quadrant. Please discuss with your primary care provider Prescriptions: No Action levothyroxine 100 mcg tablet 100 mcg PO QAM rosuvastatin 10 mg tablet 10 mg PO DAILY timolol maleate 0.5 % drops 1 drp EYE-BOTH QAM benzonatate 100 mg capsule 100 mg PO BID PRN (Reason: cough) Qty: 20 0RF pramipexole 1 mg tablet 1 mg PO BEDTIME latanoprost 0.005 % drops 1 drp EYE-BOTH BEDTIME diazepam 5 mg tablet 5 mg PO BEDTIME ascorbic acid (vitamin C) 500 mg Tablet 500 mg PO DAILY ezetimibe 10 mg tablet 10 mg PO BEDTIME cholecalciferol (vitamin D3) [Vitamin D3] 50 mcg (2,000 unit) Capsule 2,000 unit PO DAILY potassium gluconate 550 mg (90 mg) Tablet 550 mg PO DAILY PreserVision AREDS-2 250-90-40-1 mg Tablet,Chewable 1 tab PO QAM AND QPM prednisone 20 mg tablet 20 mg PO DAILY Qty: 5 0RF albuterol sulfate 90 mcg/actuation HFA aerosol inhaler 2 puff inhalation Q6H PRN (Reason: shortness of breath or wheezing) Qty: 6.7 0RF Rx Instructions: Please dispense with spacer and inhaler use instruction Referrals: Violetta Clark MD [Primary Care Provider] - Stand Alone Forms: Patient Portal/API
[2024-05-17 05:55] VITALS: BP 130/86; PULSE 77; RESP 18; TEMP 36.8; O2SAT 96; BMI 24.3
--- NOTE | 2024-05-17 05:58 | DI.RAD.S_ITS ---
PROCEDURE: XR ABDOMEN MIN 2V INDICATIONS: constipation, no BM x 7 days, +flatus TECHNIQUE: 2 views of the abdomen were acquired. COMPARISON: [facility], CT, CT ABDOMEN PELVIS WO CON, 01/20/2020, 12:09. FINDINGS: Surgical changes and devices: None. Bowel: No pneumoperitoneum. The bowel gas pattern is normal. Large stool burden. Soft tissues: No masses; visualized solid organ contours appear normal in size. No suspicious abdominal calcifications. Atherosclerotic vascular calcifications. Bones: No suspicious bony abnormalities. Prominent bulge calcification left hemipelvis measuring 2 cm adjacent to the inferior aspect of the left SI joint. IMPRESSION: Large burden of stool. Nonobstructive bowel gas pattern. Prominent bulges calcification in the left hemipelvis measuring 2 cm inferior to the left SI joint, could reflect heterotopic opacification of the joint or dense calcification of left iliac aneurysm versus prominent atherosclerotic calcifications. No definite correlate is seen on prior CT. Consider nonurgent CT abdomen pelvis for further evaluation. Findings are concordant with preliminary interpretation provided by [facility]. Dictated by: Rafita De Jesus M.D. on 05/17/2024 at 7:35 Approved by: Rafita De Jesus M.D. on 05/17/2024 at 7:38
[2024-05-17] MEDS: MAGNESIUM CITRATE 300 ML SOLUTION PO (08:04)
[2024-05-17 08:05] VITALS: RESP 16
== END 2024-05-17 08:05 | disposition home or self-care (01) ==
PROVIDERS: Emergency Provider Emergency Medicine; Family Provider Internal Medicine Hematology & Oncology; PCP Internal Medicine
DX: K59.00 Constipation, unspecified (principal)
CPT/HCPCS: 74019; 99283

== ENCOUNTER → 2024-08-27 15:30 | Outpatient (CLI) | payer MEDICARE, SELFPAY ==
[2023-05-20 02:47] VITALS: BMI 22.0
--- NOTE | 2024-08-27 15:32 | DI.RAD.S_ITS ---
PROCEDURE: XR CHEST 2V INDICATIONS: Acute upper respiratory infection, unspecified TECHNIQUE: 2 views of the chest were acquired. COMPARISON: [facility], CR, XR CHEST 2V, 09/05/2023, 8:08. [facility], CR, XR CHEST 1V, 07/11/2023, 10:17. FINDINGS: Surgical changes and devices: None. Lungs and pleura: Lungs are clear. No pleural effusions or pneumothorax. Right lower lobe calcified granuloma. Mediastinum: Mediastinal contours are normal. Heart size is normal. Bones and chest wall: No suspicious bony abnormalities. Soft tissues appear unremarkable. IMPRESSION: No acute cardiopulmonary abnormality is seen. Dictated by: Lázaro Sales M.D. on 08/28/2024 at 14:35 Approved by: Lázaro Sales M.D. on 08/28/2024 at 14:36
== END ==
LOC: RAD 15:31
PROVIDERS: Family Provider Internal Medicine Hematology & Oncology; PCP Internal Medicine; Referring Provider Physician Assistant; Visit Provider Physician Assistant
DX: J06.9 Acute upper respiratory infection, unspecified (principal)
CPT/HCPCS: 71046

== ENCOUNTER 2024-11-04 09:17 | Emergency (ER) | payer MEDICARE, SELFPAY ==
[2023-05-20 02:47] VITALS: BMI 22.0
[2024-11-04 09:44] VITALS: BP 150/69; PULSE 73; RESP 18; TEMP 36.7; O2SAT 95; BMI 24.0
--- NOTE | 2024-11-04 09:49 | DI.RAD.S_ITS ---
PROCEDURE: XR SHOULDER LT MIN 2V INDICATIONS: pain TECHNIQUE: 3 views of the shoulder were acquired. COMPARISON: None. FINDINGS: Bones: No fractures or dislocations. No suspicious bony lesions. Visualized ribs appear intact. At least moderate glenohumeral joint degenerative change. Soft tissues: No suspicious soft tissue calcifications. IMPRESSION: No acute bony abnormality. Degenerative change. Dictated by: Alverto Pickett M.D. on 11/04/2024 at 10:41 Approved by: Alverto Pickett M.D. on 11/04/2024 at 10:41
--- NOTE | 2024-11-04 09:50 | DI.RAD.S_ITS ---
PROCEDURE: XR RIBS LT MIN 3V W CXR1V INDICATIONS: pain TECHNIQUE: 2 views of the ribs were acquired, along with a single view chest. COMPARISON: [facility], , XR CHEST 2V, 08/27/2024, 15:36. FINDINGS: Surgical changes and devices: Surgical clips project over the neck. Bones and chest wall: No acute displaced rib fracture. No suspicious bony lesions. Overlying soft tissues appear unremarkable. Lungs and pleura: No pleural effusions or pneumothorax. Lungs appear clear. Mediastinum: Mediastinal contours appear normal. Heart size is normal. IMPRESSION: No acute displaced rib fracture or pneumothorax. Approved by: Mukesh Waddell M.D. on 11/04/2024 at 10:31
--- NOTE | 2024-11-04 11:39 | ED_ITS ---
HPI - General Adult <Rachael Mccormack PA-C - Last Filed: 11/04/24 12:01> General Chief complaint: Extremity Injury, Upper Stated complaint: Left rib pain Time Seen by Provider: 11/04/24 11:39 Source: patient and RN notes reviewed History of Present Illness HPI narrative: 89-year-old male presents to the ED with 4 days of left-sided upper back pain. Patient states he had lifted something heavy up to 30 lb in weight, after which his left upper back started hurting. Patient states pain is aggravated with twisting movements. No chest pain, shortness of breath. Related Data Home Medications Medication Instructions Recorded Confirmed latanoprost 0.005 % eye drops 1 drp EYE-BOTH BEDTIME 11/17/20 09/10/23 pramipexole 1 mg tablet 1 mg PO BEDTIME 11/17/20 09/10/23 ascorbic acid (vitamin C) 500 mg 500 mg PO DAILY 05/20/23 09/10/23 tablet cholecalciferol (vitamin D3) 50 2,000 unit PO DAILY 05/20/23 09/10/23 mcg (2,000 unit) capsule (Vitamin D3) ezetimibe 10 mg tablet 10 mg PO BEDTIME 05/20/23 09/10/23 potassium gluconate 550 mg (90 mg) 550 mg PO DAILY 05/20/23 09/10/23 tablet vit C 250 mg-E 90 mg-zinc 40 1 tab PO QAM AND QPM 05/20/23 09/10/23 mg-copper 1 em-hcediz-aurnrh chew tablet (PreserVision AREDS-2) levothyroxine 100 mcg tablet 100 mcg PO QAM 09/05/23 09/10/23 rosuvastatin 10 mg tablet 10 mg PO DAILY 09/05/23 09/10/23 timolol maleate 0.5 % eye drops 1 drp EYE-BOTH QAM 09/05/23 09/10/23 Previous Rx's Medication Instructions Recorded albuterol sulfate 90 mcg/actuation 2 puff inhalation Q6H PRN 07/11/23 aerosol inhaler shortness of breath or wheezing #6.7 grams valacyclovir 1 gram tablet 1,000 mg PO TID #14 tabs 08/09/24 oxycodone-acetaminophen 5 mg-325 1 tab PO Q4-6H PRN pain #10 tabs 11/04/24 mg tablet (Percocet) Allergies Allergy/AdvReac Type Severity Reaction Status Date / Time No Known Drug Allergies Allergy Verified 11/04/24 09:49 Review of Systems <Rachael Mccormack PA-C - Last Filed: 11/04/24 12:01> Constitutional Constitutional: Denies chills, Denies fatigue, Denies fever(s), Denies frequent falls, Denies lethargy and Denies weakness Eyes Eyes: Denies change in vision, Denies eye discharge, Denies irritation and Denies loss of vision ENT Ears, Nose, Mouth, and Throat: Denies change in voice, Denies dizziness, Denies neck pain, Denies sore throat and Denies throat swelling Cardiovascular Cardiovascular: Denies chest pain, Denies irregular heart rhythm, Denies lightheadedness, Denies palpitations, Denies dyspnea, Denies dyspnea on exertion and Denies orthopnea Respiratory Respiratory: Denies cough, Denies dyspnea, Denies dyspnea on exertion and Denies wheezing Gastrointestinal Gastrointestinal: Denies abdominal pain, Denies change in bowel habits, Denies diarrhea, Denies nausea and Denies vomiting Musculoskeletal Musculoskeletal: Denies neck pain and Denies numbness Comments: Left-sided upper back pain Integumentary/Breasts Skin/Breast: Denies pruritus, Denies erythema, Denies rash and Denies wounds Neurologic Neurologic: Denies behavioral changes, Denies confusion, Denies dizziness, Denies frequent falls, Denies loss of vision, Denies numbness and Denies weakness Psychiatric Psychiatric: Denies anxiety, Denies behavioral changes, Denies confusion, Denies depression, Denies homicidal ideation and Denies suicidal ideation Endocrine Endocrine: Denies fatigue, Denies flushing and Denies palpitations Hematologic/Lymphatic Hematologic/Lymphatic: Denies easy bruising Allergic/Immunologic Allergic/Immunologic: Denies urticaria, Denies throat swelling and Denies wheezing Patient History <Rachael Mccormack PA-C - Last Filed: 11/04/24 12:01> Medical History Myelodysplastic syndrome Thyroid cancer Hypothyroid Hyperlipidemia Surgical History H/O thyroidectomy Social History household members: spouse Smoking Status: Former smoker alcohol intake: never Smoking Status: Former smoker tobacco type: cigarettes alcohol intake frequency: holidays/special occasions only Exam <Rachael Mccormack PA-C - Last Filed: 11/04/24 12:01> Narrative Exam Narrative: Const General:?cooperative, healthy appearing and comfortable [facility] Head:?normal to inspection Ears:?hearing grossly normal bilaterally Nose:?external nose normal Face and sinus:?normal facial exam and sinuses nontender Mouth:?oral mucosae normal Throat:?posterior oropharynx normal Eyes General:?appearance normal, both eyes and all related structures Neck Neck:?normal visual inspection and no lymphadenopathy noted Resp Effort & Inspection:?normal respiratory effort Auscultation:?clear to auscultation bilaterally Cardio Rate:?regular rate Rhythm:?regular rhythm Musculoskeletal No bony tenderness to palpation. There are some remnants of a prior shingles rash in the left upper back. No bruising. There is full range of motion. Strength and sensation is intact. Patient is neurovascularly intact. Neuro General:?patient alert, patient awake and patient oriented x3 Initial Vital Signs Initial Vital Signs: Vital Signs Temperature 98.1 F 11/04/24 09:44 Pulse Rate 73 11/04/24 09:44 Respiratory Rate 18 11/04/24 09:44 Blood Pressure 150/69 H 11/04/24 09:44 Pulse Oximetry 95 11/04/24 09:44 Oxygen Delivery Method Room Air 11/04/24 09:44 <Nabil Archibald MD - Last Filed: 11/05/24 07:02> Initial Vital Signs Initial Vital Signs: Vital Signs Temperature 98.1 F 11/04/24 09:44 Pulse Rate 73 11/04/24 09:44 Respiratory Rate 18 11/04/24 09:44 Blood Pressure 150/69 H 11/04/24 09:44 Pulse Oximetry 95 11/04/24 09:44 Oxygen Delivery Method Room Air 11/04/24 09:44 Course <Rachael Mccormack PA-C - Last Filed: 11/04/24 12:01> Orders Ordered: ED Orders 11/04/24 09:49 XR shoulder LT min 2V Stat 11/04/24 09:50 XR ribs LT min 3V w CXR1V Stat Vital Signs Vital signs: Vital Signs - 8 hr 11/04/24 09:44 Temperature 98.1 F Pulse Rate 73 Respiratory Rate 18 Blood Pressure 150/69 H Pulse Oximetry 95 Oxygen Delivery Method Room Air <Nabil Archibald MD - Last Filed: 11/05/24 07:02> Orders Ordered: ED Orders 11/04/24 09:49 XR shoulder LT min 2V Stat 11/04/24 09:50 XR ribs LT min 3V w CXR1V Stat Vital Signs Vital signs: Vital Signs - 8 hr 11/04/24 09:44 Temperature 98.1 F Pulse Rate 73 Respiratory Rate 18 Blood Pressure 150/69 H Pulse Oximetry 95 Oxygen Delivery Method Room Air Medical Decision Making <Rachael Mccormack PA-C - Last Filed: 11/04/24 12:01> MDM Narrative Medical decision making narrative: 89-year-old male presents to the ED with 4 days of left-sided upper back pain. Rib and shoulder x-rays were obtained which were without acute findings. Patient's symptoms most consistent with a musculoskeletal sprain/strain of the left upper back. Patient requested hydrocodone since he can not take ibuprofen. Small supply of Percocet prescribed. Advised good fall precautions when taking hydrocodone. Recommend follow-up with PCP. ED return precautions discussed with patient. Patient verbalized understanding. Medical records reviewed: Yes Discharge Plan Departure Patient Disposition: Home Clinical Impression: Back strain Qualifiers: Encounter type: initial encounter Qualified Code(s): S39.012A - Strain of muscle, fascia and tendon of lower back, initial encounter Instructions: DI for Back Strain or Sprain Activity Restrictions/Additional Instructions: You were evaluated in the ED today for left-sided upper back pain. Your x-rays were normal. It appears you have strained your back from the heavy lifting. You may continue to use hydrocodone, Tylenol, lidocaine patches for pain relief. Please ensure good fall precautions when taking the hydrocodone, since it can make you sleepy and prone to falls. Please follow-up with your PCP as soon as possible. Return to the ED if you have worsening symptoms, chest pain, shortnes s of breath. Prescriptions: New oxycodone-acetaminophen [Percocet] 5-325 mg tablet 1 tab PO Q4-6H PRN (Reason: pain) Qty: 10 0RF No Action levothyroxine 100 mcg tablet 100 mcg PO QAM rosuvastatin 10 mg tablet 10 mg PO DAILY timolol maleate 0.5 % drops 1 drp EYE-BOTH QAM valacyclovir 1 gram tablet 1,000 mg PO TID Qty: 14 0RF pramipexole 1 mg tablet 1 mg PO BEDTIME latanoprost 0.005 % drops 1 drp EYE-BOTH BEDTIME ascorbic acid (vitamin C) 500 mg Tablet 500 mg PO DAILY ezetimibe 10 mg tablet 10 mg PO BEDTIME cholecalciferol (vitamin D3) [Vitamin D3] 50 mcg (2,000 unit) Capsule 2,000 unit PO DAILY potassium gluconate 550 mg (90 mg) Tablet 550 mg PO DAILY PreserVision AREDS-2 250-90-40-1 mg Tablet,Chewable 1 tab PO QAM AND QPM albuterol sulfate 90 mcg/actuation HFA aerosol inhaler 2 puff inhalation Q6H PRN (Reason: shortness of breath or wheezing) Qty: 6.7 0RF Rx Instructions: Please dispense with spacer and inhaler use instruction Referrals: Violetta Clark MD [Primary Care Provider] - Stand Alone Forms: Patient Portal/API/Survey ED Sign-out <Nabil Archibald MD - Last Filed: 11/05/24 07:02> Cosign ED Attending Chandaature Attestation: I was immediately available in the department for consultation. This documentation has been reviewed and I agree with assessment and plan. Supervised by Nbail Archibald MD
[2024-11-04 11:57] VITALS: BP 133/67; PULSE 75; RESP 16; O2SAT 98
== END 2024-11-04 11:57 | disposition home or self-care (01) ==
PROVIDERS: Emergency Provider Student in an Organized Health Care Education/Training Program; Family Provider Internal Medicine Hematology & Oncology; PCP Internal Medicine
DX: S29.012A Strain of muscle and tendon of back wall of thorax, initial encounter (principal); X50.0XXA Overexertion from strenuous movement or load, initial encounter
CPT/HCPCS: 71101; 73030; 99281; 99283

== ENCOUNTER 2025-01-03 20:14 | Observation (INO) | payer MEDICARE, SELFPAY ==
[2023-05-20 02:47] VITALS: BMI 22.0
[2025-01-03] VITALS (10 sets, daily range): BP systolic 112–141; BP diastolic 52–62; PULSE 57–71; RESP 16–20; TEMP 36.9; O2SAT 91–98; BMI 23.8
--- NOTE | 2025-01-03 20:52 | DI.RAD.S_ITS ---
PROCEDURE: XR FINGER LT MIN 2V INDICATIONS: Pain swelling TECHNIQUE: AP hand, 2 views of the 1st finger(s) acquired. COMPARISON: None. FINDINGS: Bones: No fractures or dislocations. No suspicious bony lesions. Age-appropriate bony degenerative changes are seen. Soft tissues: Generalized soft tissue swelling can be seen of the thumb. No radiopaque foreign bodies are seen. IMPRESSION: Soft tissue swelling seen of the thumb, without a radiopaque foreign body or acute bony abnormality seen. Generalized underlying degenerative changes are seen. Dictated by: Bill Loera M.D. on 01/03/2025 at 20:03 Approved by: Bill Loera M.D. on 01/03/2025 at 20:04
--- NOTE | 2025-01-03 22:30 | ED_ITS ---
HPI - Extremity Problem General Chief complaint: Extremity Problem,Nontraumatic Stated complaint: Lt thumb swollen since yesterday Time Seen by Provider: 01/03/25 21:33 Source: patient Mode of arrival: Ambulatory History of Present Illness HPI Narrative: 89-year-old male with history of thrombocytopenia followed by [facility], prior bone marrow biopsies, possible MDS (myelodysplastic syndrome), no current specific current/recent hematology therapy. Presents with complaint of 2 days duration left thumb pain and swelling, no specific injury recalled. No nail procedures recalled. No procedures recalled. Some drainage to the dorsum proximal aspect of the nailbed region left thumb. Seen in walk-in clinic earlier this morning, was given antibiotic oral cephalexin, filled the prescription took 1st dose, increasing redness and swelling unable to bend the thumb, with increasing pain through the day. No fevers or chills. No streaking or redness to the hand or other fingers. Related Data Home Medications ?Medication ?Instructions ?Recorded ?Confirmed latanoprost 0.005 % eye drops 1 drp EYE-BOTH BEDTIME 0 11/17/20 01/03/25 pramipexole 1 mg tablet 1 mg PO BEDTIME 11/17/2002/20 ascorbic acid (vitamin C) 500 mg 500 mg PO DAILY 05/2001/03/25 tablet cholecalciferol (vitamin D3) 50 2,000 unit PO DAILY 01/03/25 mcg (2,000 unit) capsule (Vitamin D3) ezetimibe 10 mg tablet 10 mg PO BEDTIME 05/20/23 potassium gluconate 550 mg (90 mg) 550 mg PO DAILY 01/03/25 tablet vit C 250 mg-E 90 mg-zinc 40 1 tab PO QAM AND QPM 04/3001/03/25 mg-copper 1 [id number] chew tablet (PreserVision AREDS-2) levothyroxine 100 mcg tablet 100 mcg PO QAM 09/05/23 0 01/03/25 rosuvastatin 10 mg tablet 10 mg PO DAILY 09/05/2302/20 timolol maleate 0.5 % eye drops 1 drp EYE-BOTH QAM 02/1901/03/25 Previous Rx's ?Medication ?Instructions ?Recorded albuterol sulfate 90 mcg/actuation 2 puff inhalation Q 6H PRN 07/11/23 aerosol inhaler shortness of breath or wheez ing #6.7 grams valacyclovir 1 gram tablet 1,000 mg PO TID #14 tabs oxycodone-acetaminophen 5 mg-325 1 tab PO Q4-6H PRN celestino in #10 tabs 11/04/24 mg tablet (Percocet) cephalexin 500 mg capsule 500 mg PO BID 7 days #14 cap s 01/03/25 Allergies Allergy/AdvReac Type Severity Reaction Status Date / Time No Known Drug Allergies Allergy Verified 01/03/25 22:17 Patient History Medical History Myelodysplastic syndrome Thyroid cancer Hypothyroid Hyperlipidemia Surgical History H/O thyroidectomy Social History household members: spouse alcohol intake: never tobacco type: cigarettes alcohol intake frequency: holidays/special occasions only Exam Narrative Exam Narrative: GENERAL: Well-developed patient, in mild distress. HEAD: Atraumatic. Normocephalic. EYES: Pupils equal round and reactive. Extraocular motions intact. No scleral icterus. No injection or drainage. ENT: Nose without bleeding, purulent drainage. Throat without erythema, tonsillar hypertrophy or exudate. Airway patent. NECK: Trachea midline. Non tender CARDIOVASCULAR: Regular rate and rhythm without murmurs, gallops, or rubs. RESPIRATORY: Clear to auscultation. Breath sounds equal bilaterally. No wheezes, rales, or rhonchi. GASTROINTESTINAL: Abdomen soft, non-tender, nondistended. EXTREMITIES: Left thumb with diffuse circumferential redness and warmth, sausage like, unable to bend at IP, dorsal small 3 mm wound proximal to the mid nailbed matrix area, with scant serosanguineous like expressed fluid. Wound area cleansed with alcohol pad, further fluid expressed, wound culture sent. BACK: Nontender without deformity or crepitance. No flank tenderness. NEURO: AOx3. Motor functions grossly nonfocal. SKIN: No rash or erythema of visible areas Initial Vital Signs Initial Vital Signs: Vital Signs Temperature 98.5 F 01/03/25 20:18 Pulse Rate 61 01/03/25 20:18 Respiratory Rate 20 01/03/25 20:18 Blood Pressure 115/62 01/03/25 20:18 Pulse Oximetry 98 01/03/25 20:18 Oxygen Delivery Method Room Air 01/03/25 20:18 Course Orders Ordered: ED Orders 01/03/25 20:52 XR finger LT min 2V Stat 01/03/25 22:45 Wound Culture and Gram Stain Stat 01/03/25 23:15 CBC Auto Diff [Complete Blood Count AUTO DIFF] Stat CMP [Comprehensive Metabolic Panel] Stat Lactate (Lactic Acid) Stat Procalcitonin Stat 01/03/25 23:30 Blood Culture Stat 01/04/25 00:25 CT UE LT w con Stat 01/04/25 00:35 Platelet Irradiated Stat Type and Screen Stat 01/04/25 03:03 CRP [C-Reactive Protein Quant] Stat ESR [Erythrocyte Sedimentation Rate] Stat 01/05/25 06:00 Complete Blood Count AUTO DIFF DAILY Comprehensive Metabolic Panel DAILY Acetaminophen (Acetaminophen 325 Mg Tablet) 650 mg PO Q6H PRN PRN Reason: Fever/Mild Pain (1-3) Hydrocodone Bitart/Acetaminophen (Hydrocodone/Acet 5/325 Tablet) 1 tab PO Q4H PRN PRN Reason: Pain, Moderate (4-6) Atorvastatin Calcium (Atorvastatin 20 Mg Tablet) 20 mg PO DAILY [facility] Ceftriaxone Sodium 1,000 mg/ (Sodium Chloride) 100 mls @ 200 mls/hr IV Q24H [facility] Vancomycin HCl 500 mg/ Sodium (Chloride) 100 mls @ 100 mls/hr IV Q12H [facility] Levothyroxine Sodium (Levothyroxine 100 Mcg Tablet) 100 mcg PO 0600 [facility] Naloxone HCl (Naloxone 0.4 Mg/Ml Vial) 0.2 mg IV Q2MIN PRN PRN Reason: Opiate Reversal Non-Formulary Medication (Potassium Gluconate) 550 mg PO DAILY [facility] Ondansetron HCl (Ondansetron 4 Mg/2 Ml Inj) 4 mg IV Q8HR PRN PRN Reason: Nausea And Vomiting Pramipexole Dihydrochloride (Pramipexole 0.25 Mg Tablet) 1 mg PO BEDTIME [facility] Vancomycin HCl (Vancomycin Per Pharmacy) 1 request MISC NOW PRN On Hold: 01/04/25 03:32 PRN Reason: cellulitis Discontinued Medications Hydromorphone HCl (Hydromorphone 0.5 Mg Inj) 0.5 mg IV NOW ONE Stop: 01/03/25 22:48 Last Admin: 01/03/25 23:11 Dose: 0.5 mg Documented By: BRAYDEN Hydromorphone HCl (Hydromorphone 0.5 Mg Inj) 0.5 mg IV NOW ONE Stop: 01/04/25 02:00 Last Admin: 01/04/25 02:01 Dose: 0.5 mg Documented By: BRAYDEN Ceftriaxone Sodium 1,000 mg/ (Sodium Chloride) 100 mls @ 200 mls/hr IV NOW ONE Stop: 01/03/25 22:45 Last Infusion: 01/04/25 00:05 Dose: Infused Documented By: Admin: 01/03/25 23:31 Dose: 200 mls/hr Documented By: BRAYDEN Vancomycin HCl 2,000 mg/ (Sodium Chloride) 500 mls @ 250 mls/hr IV NOW ONE Stop: 01/03/25 22:45 Last Admin: 01/03/25 23:45 Dose: Not Given Documented By: BRAYDEN Vancomycin HCl/Dextrose (Vancomycin) 1,500 mg in 300 mls @ 150 mls/hr IV NOW ONE Stop: 01/04/25 01:29 Last Infusion: 01/04/25 02:16 Dose: Infused Documented By: Admin: 01/04/25 00:07 Dose: 150 mls/hr Documented By: BRAYDEN Ondansetron HCl (Ondansetron 4 Mg/2 Ml Inj) 4 mg IV NOW ONE Stop: 01/03/25 22:48 Last Admin: 01/03/25 23:12 Dose: 4 mg Documented By: BRAYDEN Vital Signs Vital signs: Vital Signs - 8 hr 01/03/25 20:42 01/03/25 20:42 01/03/25 21:00 Pulse Rate 62 68 Respiratory Rate 16 Blood Pressure 112/52 L Pulse Oximetry 95 97 Oxygen Delivery Method Oxygen Flow Rate 01/03/25 21:00 01/03/25 21:30 01/03/25 21:30 Pulse Rate 61 Respiratory Rate Blood Pressure 116/62 117/56 L Pulse Oximetry 97 Oxygen Delivery Method Oxygen Flow Rate 01/03/25 21:58 01/03/25 22:00 01/03/25 22:17 Pulse Rate 68 61 Respiratory Rate 18 Blood Pressure 113/59 L Pulse Oximetry 98 97 Oxygen Delivery Method Oxygen Flow Rate 01/03/25 23:00 01/03/25 23:18 01/03/25 23:30 Pulse Rate 71 57 L Respiratory Rate 18 Blood Pressure 141/62 H Pulse Oximetry 91 Oxygen Delivery Method Oxygen Flow Rate 01/03/25 23:30 01/04/25 00:00 01/04/25 00:00 Pulse Rate 66 Respiratory Rate 19 Blood Pressure 141/56 H 127/60 Pulse Oximetry 96 Oxygen Delivery Method Oxygen Flow Rate 01/04/25 00:30 01/04/25 00:30 01/04/25 01:01 Pulse Rate 67 71 Respiratory Rate 19 19 Blood Pressure 132/76 Pulse Oximetry 97 93 Oxygen Delivery Method Oxygen Flow Rate 01/04/25 01:14 01/04/25 01:14 01/04/25 01:30 Pulse Rate 55 L 60 Respiratory Rate 14 17 Blood Pressure 134/62 Pulse Oximetry 96 100 Oxygen Delivery Method Nasal Cannula Nasal Cannula Oxygen Flow Rate 1 1 01/04/25 01:30 01/04/25 02:00 01/04/25 02:00 Pulse Rate 64 Respiratory Rate 11 L Blood Pressure 145/82 H 133/63 Pulse Oximetry 100 Oxygen Delivery Method Oxygen Flow Rate 01/04/25 02:30 01/04/25 02:30 01/04/25 03:00 Pulse Rate 71 56 L Respiratory Rate 16 14 Blood Pressure 141/84 H Pulse Oximetry 99 97 Oxygen Delivery Method Oxygen Flow Rate MDM - Extremity (Nontraumatic) Lab Data 01/03/25 23:15 01/03/25 23:15 Labs: Lab Results 01/03/25 01/04/25 Range/Units 23:15 00:35 WBC 6.0 (4.5-11.0) X10^3/uL RBC 3.90 L (4.5-5.9) X10^6/uL Hgb 11.8 L (13.5-17.5) g/dL Hct 36.4 L (41-53) % MCV 93.4 (80-100) fL MCH 30.2 (26-34) PG MCHC 32.3 (30-36) % RDW 18.4 H (11.6-14.8) % Plt Count 17 L* (150-400) X10^3/uL Neut % (Auto) Not Reportable Lymph % (Auto) Not Reportable Owen % (Auto) Not Reportable Eos % (Auto) Not Reportable Baso % (Auto) Not Reportable Lymph # (Auto) Not Reportable Owen # (Auto) Not Reportable Baso # (Auto) Not Reportable Total Counted 100 Seg Neutrophils % 58.0 (38-70) % Lymphocytes % (Manual) 36.0 (25-45) % Monocytes % (Manual) 5.0 (2-11) % Eosinophils % (Manual) 1.0 L (2-4) % Neutrophils # (Manual) 3480 (0036-6194) /uL Platelet Estimate Decr Plt Morphology Comment RBC Morphology See below Anisocytosis 1+ H Ovalocytes 2+ H Sodium 136 L (137-145) mmol/L Potassium 4.3 (3.4-5.1) mmol/L Chloride 106 (98-107) mmol/L Carbon Dioxide 26 (22-32) mmol/L BUN 30 H (9-20) mg/dL Creatinine 1.13 (0.66-1.25) mg/dL Estimated GFR > 60 (>60) mL/min BUN/Creatinine Ratio 26.5 H (6-22) Glucose 93 (70-99) mg/dL Lactate 0.7 (0.7-2.1) mmol/L Calcium 8.9 (8.4-10.2) mg/dL Total Bilirubin 0.8 (0.2-1.3) mg/dL AST 27 (17-59) IU/L ALT 28 (<50) IU/L Alkaline Phosphatase 86 (38-126) U/L Total Protein 6.5 (6.3-8.2) g/dL Albumin 3.8 (3.5-5.0) g/dL Globulin 2.7 (1.7-4.1) g/dL Albumin/Globulin Ratio 1.4 (1.0-2.8) Procalcitonin 0.069 (<0.5) ng/mL Blood Type A Positive Antibody Screen Negative Imaging Data Extremity x-ray #1: Radiologist's Impression: [address] [address] XRay Report Signed Patient: Phi Cantrell MR#: [id number] : 1935 Acct:[id number] Age/Sex: 89 / M Date of Service: 01/03/25 Loc: ED Accession Number: [id number] Procedure: XR finger LT min 2V Ordering Provider: Nabil Archibald MD PROCEDURE: XR FINGER LT MIN 2V INDICATIONS: Pain swelling TECHNIQUE: AP hand, 2 views of the 1st finger(s) acquired. COMPARISON: None. FINDINGS: Bones: No fractures or dislocations. No suspicious bony lesions. Age-appropriate bony degenerative changes are seen. Soft tissues: Generalized soft tissue swelling can be seen of the thumb. No radiopaque foreign bodies are seen. IMPRESSION: Soft tissue swelling seen of the thumb, without a radiopaque foreign body or acute bony abnormality seen. Generalized underlying degenerative changes are seen. Dictated by: Bill Loera M.D. on 01/03/2025 at 20:03 Approved by: Bill Loera M.D. on 01/03/2025 at 20:04 CT left thumb with IV contrast: Radiologist's Impression: [place] [address] CT Scan Report Signed Patient: Phi Cantrell MR#: [id number] : 1935 Acct:[id number] Age/Sex: 89 / M Date of Service: 01/04/25 Loc: ED Accession Number: [id number] Procedure: CT UE LT w con Ordering Provider: Nabil Archibald MD PROCEDURE: CT UE LT W CON INDICATIONS: eval for drainable fluid sausage finger TECHNIQUE: After the administration of intravenous contrast, 3 mm axial sections acquired of the left hand, with coronal and sagittal reformats. COMPARISON: [facility], , XR FINGER LT MIN 2V, 01/03/2025, 20:47. FINDINGS: Image quality: Excellent. Bones: Generalized bony degenerative changes can be seen. No sarah areas bony erosion or periosteal reaction can be seen. Soft tissues: Generalized soft tissue swelling can be seen of the thumb, with associated generalized enhancement. No soft tissue gas is seen. No focal fluid collection can be seen to suggest abscess. IMPRESSION: Generalized soft tissue swelling seen of the thumb, yet without an associated abscess collection. No soft tissue gas is seen. Degenerative changes are seen, yet without CT findings of osteomyelitis. Dictated by: Bill Loera M.D. on 01/04/2025 at 0:35 Approved by: Bill Loera M.D. on 01/04/2025 at 0:37 [facility] Narrative Medical decision making narrative: 89-year-old male with history of thrombocytopenia, increasing left thumb redness pain and swelling, had 1st oral dose of oral cephalexin antibiotic from clinic earlier today. Draining wound proximal dorsal nailbed matrix area, no puncture were injury recalled, expressed fluid from wound for wound culture. He is concerned he might need to be admitted. Labs sent. X-ray requested. IV vancomycin, IV ceftriaxone. X-ray without obvious fracture or osteomyelitis like changes. See radiology report. IV dilaudid/zofran. Pain seems better control. Labs results are pending. Labs show platelets [id number], previously 20001/above comparisons. Platelet transfusion ordered, per phone call with laboratory services this might be 3 hours duration. Possible transfer to blood bank capable facility. Patient prefers to stay here. Query went out to [facility], await call back. We will obtain CT of left thumb area with IV contrast, to look for drainable fluid Patient requesting additional dose of analgesic, IV Dilaudid. Could consider digital block but we will contribute to further edema of the affected digit. Systemic analgesic for now. Keep left hand/thumb elevated. 0245, per lab platelets are in transit, reportedly left at 1:30 a.m. 0250, case discussed with hospitalist Dr. Murillo who accepts patient for admission to observation, requests ortho be consulted 0300, case discussed with orthopedic surgery Dr. Kyle who will consult. Critical Care Time Critical Care Time Critical Care Time: Yes Total Critical Care Time: 35 Attestation: The high probability of a clinically significant, sudden or life threatening deterioration of the [musculoskeletal, dermatologic, hematologic] system(s) required my full and direct attention, intervention and personal management. The aggregate critical care time was [35] minutes. This time is in addition to time spent performing reported procedures but includes the following: [x] Data Review and interpretation [x] Patient assessment and monitoring of vital signs [x] Documentation [x] Medication orders and management Discharge Plan Departure Patient Disposition: Admitted as Observation Clinical Impression: Cellulitis of left thumb, Thrombocytopenia Admit Date/Time: 01/04/25 03:06 Admit Provider: [place]
[2025-01-03] MEDS: HYDROMORPHONE 0.5 MG INJ IV (23:11)
[2025-01-03] MEDS: ONDANSETRON 4 MG/2 ML INJ IV (23:12)
[2025-01-03 23:27] LABS: Hematocrit 36.4 % (41-53); Hemoglobin 11.8 g/dL (13.5-17.5); Mean Corpuscular HGB Conc 32.3 % (30-36); Mean Corpuscular Hemoglobin 30.2 PG (26-34); Mean Corpuscular Volume 93.4 fL (80-100); Red Cell Distribution Width 18.4 % (11.6-14.8)
[2025-01-03] MEDS: cefTRIAXone 1,000 MG in SODIUM CHLORIDE 0.9% 100 ML 200 MG IV (23:31)
[2025-01-03 23:33] LABS: Platelet Count 17 X10^3/uL (150-400)
[2025-01-03 23:34] LABS: Add Manual Diff / Slide Review YES
[2025-01-03 23:35] LABS: Alanine Aminotransferase 28 IU/L (<50); Albumin 3.8 g/dL (3.5-5.0); Albumin Globulin Ratio 1.4 (1.0-2.8); Alkaline Phosphatase 86 U/L (38-126); Aspartate Aminotransferase 27 IU/L (17-59); BUN Creatinine Ratio 26.5 (6-22); Bilirubin Total 0.8 mg/dL (0.2-1.3); Blood Urea Nitrogen 30 mg/dL (9-20); Calcium 8.9 mg/dL (8.4-10.2); Carbon Dioxide 26 mmol/L (22-32); Chloride 106 mmol/L (98-107); Estimated Glomerular Filt Rate > 60 mL/min (>60); Globulin 2.7 g/dL (1.7-4.1); Glucose 93 mg/dL (70-99); HEMOLYSIS < 15 (0-50); Potassium 4.3 mmol/L (3.4-5.1); Sodium 136 mmol/L (137-145); Total Protein 6.5 g/dL (6.3-8.2)
[2025-01-03 23:36] LABS: Lactate (Lactic Acid) 0.7 mmol/L (0.7-2.1)
[2025-01-03 23:54] LABS: Neutrophils Absolute Manual 3480 /uL (3000-5900); Total Cells Counted 100
[2025-01-03 23:56] LABS: Anisocytosis 1+; Ovalocytes 2+; Platelet Estimate Decr
[2025-01-04] VITALS (18 sets, daily range): BP systolic 88–145; BP diastolic 49–84; PULSE 54–71; RESP 11–19; TEMP 36.4–36.7; O2SAT 93–100; BMI 23.8
[2025-01-04] MEDS: VANCOMYCIN 1,500 MG/300 ML PIGGYBACK 150 MG IV (00:07)
--- NOTE | 2025-01-04 00:25 | DI.CT.S_ITS ---
PROCEDURE: CT UE LT W CON INDICATIONS: eval for drainable fluid sausage finger TECHNIQUE: After the administration of intravenous contrast, 3 mm axial sections acquired of the left hand, with coronal and sagittal reformats. COMPARISON: [facility], CR, XR FINGER LT MIN 2V, 01/03/2025, 20:47. FINDINGS: Image quality: Excellent. Bones: Generalized bony degenerative changes can be seen. No sarah areas bony erosion or periosteal reaction can be seen. Soft tissues: Generalized soft tissue swelling can be seen of the thumb, with associated generalized enhancement. No soft tissue gas is seen. No focal fluid collection can be seen to suggest abscess. IMPRESSION: Generalized soft tissue swelling seen of the thumb, yet without an associated abscess collection. No soft tissue gas is seen. Degenerative changes are seen, yet without CT findings of osteomyelitis. Dictated by: Bill Loera M.D. on 01/04/2025 at 0:35 Approved by: Bill Loera M.D. on 01/04/2025 at 0:37
[2025-01-04 00:31] LABS: Procalcitonin 0.069 ng/mL (<0.5)
[2025-01-04] MEDS: HYDROMORPHONE 0.5 MG INJ IV (02:01)
--- NOTE | 2025-01-04 03:34 | PM.HP.1 ---
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 Per the patient's report, started to notice increased swelling and redness dorsum aspect right by the nail of his left thumb. This has been ongoing for the last 2 days. The patient denies any known injury to the left thumb. The patient was seen in clinic earlier this morning and was given Keflex in which she took the first dose. Despite taking and starting on the antibiotic the patient thumb continued to swell, increased redness, increasing pain and unable to bend his thumb. Otherwise the patient denies any fever, chills, nausea, vomiting, diarrhea or chest pain. In the emergency room, the patient was hemodynamically stable. Labs shows no sign of sepsis though platelet was 17,000. The patient has no active bleeding per ER physician. Per our system patient platelet normally runs in the 30s. Her ER physician requested placed left to be transferred here for transfusion. The patient was given IV ceftriaxone and IV vancomycin. Orthopedic surgeon was also consulted after CT scan shows no sign of abscess. However Ortho was consulted to assess for any possible tenosynovitis. [facility] Medical History Myelodysplastic syndrome Thyroid cancer Hypothyroid Hyperlipidemia Surgical History H/O thyroidectomy Social History household members: spouse alcohol intake: never Meds Home Medications and Allergies Home Medications ?Medication ?Instructions ?Recorded ?Confirmed ?Type latanoprost 0.005 % eye drops 1 drp EYE-BOTH BEDTIME 11/17/20 01/03/25 History pramipexole 1 mg tablet 1 mg PO BEDTIME 11/17/20 01/03/25 History ascorbic acid (vitamin C) 500 mg 500 mg PO DAILY 05/20/23 01/03/25 History tablet cholecalciferol (vitamin D3) 50 2,000 unit PO DAILY 05/20/23 01/03/25 History mcg (2,000 unit) capsule (Vitamin D3) ezetimibe 10 mg tablet 10 mg PO BEDTIME 05/20/23 01/03/25 History potassium gluconate 550 mg (90 mg) 550 mg PO DAILY 05/20/23 01/03/25 History tablet vit C 250 mg-E 90 mg-zinc 40 1 tab PO QAM AND QPM 05/20/23 01/03/25 History mg-copper 1 [id number] chew tablet (PreserVision AREDS-2) albuterol sulfate 90 mcg/actuation 2 puff inhalation Q6H PRN 07/11/23 01/03/25 Rx aerosol inhaler shortness of breath or wheezing #6.7 grams levothyroxine 100 mcg tablet 100 mcg PO QAM 09/05/23 01/03/25 History rosuvastatin 10 mg tablet 10 mg PO DAILY 09/05/23 01/03/25 History timolol maleate 0.5 % eye drops 1 drp EYE-BOTH QAM 09/05/23 01/03/25 History valacyclovir 1 gram tablet 1,000 mg PO TID #14 tabs 08/09/24 01/03/25 Rx oxycodone-acetaminophen 5 mg-325 1 tab PO Q4-6H PRN pain #10 tabs 11/04/24 01/03/25 Rx mg tablet (Percocet) cephalexin 500 mg capsule 500 mg PO BID 7 days #14 caps 01/03/25 01/03/25 Rx Allergies Allergy/AdvReac Type Severity Reaction Status Date / Time No Known Drug Allergies Allergy Verified 01/03/25 22:17 Review of Systems Review of Systems ROS: Yes All systems reviewed with the patient and are negative except as otherwise documented Exam Vital Signs (past 8 hours): - 01/03/25 20:18 01/03/25 20:42 01/03/25 20:42 Temperature 98.5 F Pulse Rate 61 62 Respiratory Rate 20 16 Blood Pressure 115/62 112/52 L Pulse Oximetry 98 95 Oxygen Delivery Method Room Air Oxygen Flow Rate 01/03/25 21:00 01/03/25 21:00 01/03/25 21:30 Temperature Pulse Rate 68 61 Respiratory Rate Blood Pressure 116/62 Pulse Oximetry 97 97 Oxygen Delivery Method Oxygen Flow Rate 01/03/25 21:30 01/03/25 21:58 01/03/25 22:00 Temperature Pulse Rate 68 Respiratory Rate 18 Blood Pressure 117/56 L 113/59 L Pulse Oximetry 98 Oxygen Delivery Method Oxygen Flow Rate 01/03/25 22:17 01/03/25 23:00 01/03/25 23:18 Temperature Pulse Rate 61 71 Respiratory Rate Blood Pressure 141/62 H Pulse Oximetry 97 Oxygen Delivery Method Oxygen Flow Rate 01/03/25 23:30 01/03/25 23:30 01/04/25 00:00 Temperature Pulse Rate 57 L 66 Respiratory Rate 18 19 Blood Pressure 141/56 H Pulse Oximetry 91 96 Oxygen Delivery Method Oxygen Flow Rate 01/04/25 00:00 01/04/25 00:30 01/04/25 00:30 Temperature Pulse Rate 67 Respiratory Rate 19 Blood Pressure 127/60 132/76 Pulse Oximetry 97 Oxygen Delivery Method Oxygen Flow Rate 01/04/25 01:01 01/04/25 01:14 01/04/25 01:14 Temperature Pulse Rate 71 55 L Respiratory Rate 19 14 Blood Pressure 134/62 Pulse Oximetry 93 96 Oxygen Delivery Method Nasal Cannula Oxygen Flow Rate 1 01/04/25 01:30 01/04/25 01:30 01/04/25 02:00 Temperature Pulse Rate 60 Respiratory Rate 17 Blood Pressure 145/82 H 133/63 Pulse Oximetry 100 Oxygen Delivery Method Nasal Cannula Oxygen Flow Rate 1 01/04/25 02:00 01/04/25 02:30 01/04/25 02:30 Temperature Pulse Rate 64 71 Respiratory Rate 11 L 16 Blood Pressure 141/84 H Pulse Oximetry 100 99 Oxygen Delivery Method Oxygen Flow Rate 01/04/25 03:00 Temperature Pulse Rate 56 L Respiratory Rate 14 Blood Pressure Pulse Oximetry 97 Oxygen Delivery Method Oxygen Flow Rate Oxygen Delivery Method Nasal Cannula Oxygen Flow Rate 1 Narrative Exam Narrative: Physical Exam: GENERAL: The patient is not in any acute distressed. Awake and alert. HEENT: Nonicteric sclerae, PERRLA, EOMI. Oropharynx clear. Moist mucous membranes. Conjunctivae appear well perfused. HEART: Regular rate and rhythm without murmurs. No lower extremities edema. LUNGS: Clear to auscultation bilaterally. No wheezing, crackles or rhonchi ABDOMEN: Soft, positive bowel sounds, nontender. SKIN: Significant swelling and redness to left thum. No rash, no excessive bruising, petechiae, or purpura. NEUROLOGIC: AxO x 3. Cranial nerves II-XII intact without motor/sensory deficit. Objective Labs 01/03/25 23:15 01/03/25 23:15 Labs: Laboratory Results - last 24 hr 01/03/25 01/04/25 23:15 00:35 WBC 6.0 RBC 3.90 L Hgb 11.8 L Hct 36.4 L MCV 93.4 MCH 30.2 MCHC 32.3 RDW 18.4 H Plt Count 17 L* Neut % (Auto) Not Reportable Lymph % (Auto) Not Reportable [place] % (Auto) Not Reportable Eos % (Auto) Not Reportable Baso % (Auto) Not Reportable Lymph # (Auto) Not Reportable [place] # (Auto) Not Reportable Baso # (Auto) Not Reportable Total Counted 100 Seg Neutrophils % 58.0 Lymphocytes % (Manual) 36.0 Monocytes % (Manual) 5.0 Eosinophils % (Manual) 1.0 L Neutrophils # (Manual) 3480 Platelet Estimate Decr Plt Morphology Comment RBC Morphology See below Anisocytosis 1+ H Ovalocytes 2+ H Sodium 136 L Potassium 4.3 Chloride 106 Carbon Dioxide 26 BUN 30 H Creatinine 1.13 Estimated GFR > 60 BUN/Creatinine Ratio 26.5 H Glucose 93 Lactate 0.7 Calcium 8.9 Total Bilirubin 0.8 AST 27 ALT 28 Alkaline Phosphatase 86 Total Protein 6.5 Albumin 3.8 Globulin 2.7 Albumin/Globulin Ratio 1.4 Procalcitonin 0.069 Blood Type A Positive Antibody Screen Negative Assessment & Plan Assessment & Plan narrative: Cellulitis left thumb. Admit the patient to medical observation. Of note the patient not septic at this time and CT scan shows no abscess. Continue IV ceftriaxone and vancomycin. Of note orthopedic surgery consulted to assess for any possible tenosynovitis. As patient has a difficulty with bending his thumb. Thrombocytopenia likely MDS. Of note patient baseline platelet is usually in the 30s. Today 17. No sign of active bleeding. 1 unit of platelet transfer from outside hospital is coming to our hospital for transfusion. Will transfuse and recheck platelet. Hypothyroidism. Resume home Synthroid. Hyperlipidemia. Resume home statin. Restless leg syndrome. Resume home pramipexole. DVT prophylaxis heparin subcu. CODE STATUS DNR/DNI Disposition likely home in 1 to 2 days - As the provider of this telehealth evaluation, requested by the patient's evaluating physician, I attest that I introduced myself to the patient, provided my credentials and determined that telemedicine via a real-time, 2 way interactive audio and video platform is an appropriate and effective means of providing this service. - I reviewed the patient's chart and had a discussion with the member of the patient's treatment team. - The patient and I mutually agreed with continuation of this evaluation via telemedicine. The patient consented for the telemedicine evaluation. - This virtual encounter was taken place from [place] by Dr. Sean Murillo. The patient was evaluated at [facility]. The encounter was approximately 35 minutes. The nurse was present during the entire time of the encounter and was able to move the stethoscope in appropriate directions. Time-Based Coding :: [TOTAL MINUTES] spent with patient and on the chart (including review of chart, obtaining history, exam, reviewing outside data, placing orders, documenting exam and treatment plan, and counseling patient) on [DATE].
--- NOTE | 2025-01-04 03:40 | PC.NURSE ---
Assisted with Hospitalist admission.
[2025-01-04 03:45] LABS: C-Reactive Protein Quant 2.6 mg/dL (<1.0)
[2025-01-04 04:18] LABS: Erythrocyte Sedimentation Rate 10 MM/HR (0-15)
--- NOTE | 2025-01-04 05:59 | PC.WOUNDPHOT ---
Addendum entered by Courtney Genao R.N. 01/04/25 06:15: ^ L thumb Original Note: ^ R side of back ^ buttocks ^ legs ^ R hand ^ L hand
[2025-01-04] MEDS: LEVOTHYROXINE 125 MCG TABLET PO (06:11)
--- NOTE | 2025-01-04 06:45 | PC.NURSE ---
cnc machinist 2nd shift: Patient arrived from ED approximately 0345 via wheelchair, ambulates w/ 1 PA FWW. Patient is AxOx4, VSS. L thumb is red and swollen, denies pain currently. Scattered bruising noted on extremities and side of back (wound photo uploaded), denies falling, although reports recent fishing trip. Platelets transfused, no adverse reactions noted. Oriented to call-light, plan of care ongoing. Belongings placed in safe.
--- NOTE | 2025-01-04 07:46 | PM.HP.1 ---
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 Per the patient's report, started to notice increased swelling and redness dorsum aspect right by the nail of his left thumb. This has been ongoing for the last 2 days. The patient denies any known injury to the left thumb. The patient was seen in clinic earlier this morning and was given Keflex in which she took the first dose. Despite taking and starting on the antibiotic the patient thumb continued to swell, increased redness, increasing pain and unable to bend his thumb. Otherwise the patient denies any fever, chills, nausea, vomiting, diarrhea or chest pain. ED course: the patient was hemodynamically stable. Labs shows no sign of sepsis though platelet was 17,000. The patient has no active bleeding per ER physician. Per our system patient platelet normally runs in the 30s. Her ER physician requested placed left to be transferred here for transfusion. The patient was given IV ceftriaxone and IV vancomycin. Orthopedic surgeon was also consulted after CT scan shows no sign of abscess. However Ortho was consulted to assess for any possible tenosynovitis. S: He is doing well, his thumb is more swollen and red and painful today than yesterday. He states it did improve a bit after the 1st dose of antibiotics. I did speak with Orthopedics who thinks that we should use antibiotics and soak this but that it does not need incision and drainage at this point in time. In addition the patient's platelets are chronically low, he received platelets last evening. His platelets went from 17 to 55. [facility] Medical History Myelodysplastic syndrome Thyroid cancer Hypothyroid Hyperlipidemia Surgical History H/O thyroidectomy Social History household members: spouse alcohol intake: never Meds Home Medications and Allergies Home Medications ?Medication ?Instructions ?Recorded ?Confirmed ?Type latanoprost 0.005 % eye drops 1 drp EYE-BOTH BEDTIME 11/17/20 01/04/25 History pramipexole 1 mg tablet 1 mg PO BEDTIME 11/17/20 01/04/25 History ascorbic acid (vitamin C) 500 mg 500 mg PO DAILY 05/20/23 01/04/25 History tablet cholecalciferol (vitamin D3) 50 2,000 unit PO DAILY 05/20/23 01/04/25 History mcg (2,000 unit) capsule (Vitamin D3) ezetimibe 10 mg tablet 10 mg PO BEDTIME 05/20/23 01/04/25 History potassium gluconate 550 mg (90 mg) 550 mg PO DAILY 05/20/23 01/04/25 History tablet vit C 250 mg-E 90 mg-zinc 40 1 tab PO QAM AND QPM 05/20/23 01/04/25 History mg-copper 1 [id number] chew tablet (PreserVision AREDS-2) albuterol sulfate 90 mcg/actuation 2 puff inhalation Q6H PRN 07/11/23 01/04/25 Rx aerosol inhaler shortness of breath or wheezing #6.7 grams levothyroxine 100 mcg tablet 62 mcg PO .Wed 09/05/23 01/04/25 History rosuvastatin 10 mg tablet 10 mg PO DAILY 09/05/23 01/04/25 History timolol maleate 0.5 % eye drops 1 drp EYE-BOTH QAM 09/05/23 01/04/25 History oxycodone-acetaminophen 5 mg-325 1 tab PO Q4-6H PRN pain #10 tabs 11/04/24 01/04/25 Rx mg tablet (Percocet) diazepam 5 mg tablet 5 mg PO ONCE PM Insomnia 01/04/25 01/04/25 History levothyroxine 125 mcg tablet 125 mcg PO DAILY 01/04/25 01/04/25 History Allergies Allergy/AdvReac Type Severity Reaction Status Date / Time No Known Drug Allergies Allergy Verified 01/03/25 22:17 Review of Systems Review of Systems Narrative: All else reviewed and otherwise unremarkable except as noted in the history and physical. Exam Vital Signs (past 8 hours): - 01/04/25 00:00 01/04/25 00:00 01/04/25 00:30 Temperature Pulse Rate 66 67 Respiratory Rate 19 19 Blood Pressure 127/60 Pulse Oximetry 96 97 Oxygen Delivery Method Oxygen Flow Rate 01/04/25 00:30 01/04/25 01:01 01/04/25 01:14 Temperature Pulse Rate 71 55 L Respiratory Rate 19 14 Blood Pressure 132/76 Pulse Oximetry 93 96 Oxygen Delivery Method Nasal Cannula Oxygen Flow Rate 1 01/04/25 01:14 01/04/25 01:30 01/04/25 01:30 Temperature Pulse Rate 60 Respiratory Rate 17 Blood Pressure 134/62 145/82 H Pulse Oximetry 100 Oxygen Delivery Method Nasal Cannula Oxygen Flow Rate 1 01/04/25 02:00 01/04/25 02:00 01/04/25 02:30 Temperature Pulse Rate 64 71 Respiratory Rate 11 L 16 Blood Pressure 133/63 Pulse Oximetry 100 99 Oxygen Delivery Method Oxygen Flow Rate 01/04/25 02:30 01/04/25 03:00 01/04/25 04:09 Temperature 97.6 F Pulse Rate 56 L 61 Respiratory Rate 14 19 Blood Pressure 141/84 H 102/59 L Pulse Oximetry 97 95 Oxygen Delivery Method Oxygen Flow Rate 0 01/04/25 04:17 01/04/25 04:30 01/04/25 04:30 Temperature 97.9 F 97.9 F 97.9 F Pulse Rate 54 L 64 56 L Respiratory Rate 18 19 18 Blood Pressure 102/59 L 104/58 L 104/58 L Pulse Oximetry 95 Oxygen Delivery Method Oxygen Flow Rate 0 01/04/25 04:48 01/04/25 05:21 Temperature 97.9 F 97.9 F Pulse Rate 60 64 Respiratory Rate 18 18 Blood Pressure 90/49 L 104/82 Pulse Oximetry 97 Oxygen Delivery Method Oxygen Flow Rate 0 Oxygen Delivery Method Nasal Cannula Oxygen Flow Rate 0 Narrative Exam Narrative: NAD, alert and oriented, fluent speech, calm. Normocephalic skull, EOMI, anicteric sclera, symmetric pupils. Oropharynx unremarkable, no droop. Neck supple, midline trachea, no adenopathy. Lungs clear, normal rate and effort. Heart regular, no murmur gallop or rub. Abdomen is soft, non distended and non tender. Extremities are free of edema. Skin is free of rash or lesions. Joints are not swollen or deformed. Judgment appears to be normal. The left thumb is red and swollen just above the nail consistent with paronychia. Objective Imaging Hand CT:: Radiologist's impression: IMPRESSION: Generalized soft tissue swelling seen of the thumb, yet without an associated abscess collection. No soft tissue gas is seen. Degenerative changes are seen, yet without CT findings of osteomyelitis. Labs 01/04/25 08:53 01/03/25 23:15 Labs: Laboratory Results - last 24 hr 01/03/25 01/04/25 01/04/25 23:15 00:35 03:20 WBC 6.0 RBC 3.90 L Hgb 11.8 L Hct 36.4 L MCV 93.4 MCH 30.2 MCHC 32.3 RDW 18.4 H Plt Count 17 L* Neut % (Auto) Not Reportable Lymph % (Auto) Not Reportable [place] % (Auto) Not Reportable Eos % (Auto) Not Reportable Baso % (Auto) Not Reportable Lymph # (Auto) Not Reportable [place] # (Auto) Not Reportable Baso # (Auto) Not Reportable Total Counted 100 Seg Neutrophils % 58.0 Lymphocytes % (Manual) 36.0 Monocytes % (Manual) 5.0 Eosinophils % (Manual) 1.0 L Neutrophils # (Manual) 3480 Platelet Estimate Decr Plt Morphology Comment RBC Morphology See below Anisocytosis 1+ H Ovalocytes 2+ H ESR 10 Sodium 136 L Potassium 4.3 Chloride 106 Carbon Dioxide 26 BUN 30 H Creatinine 1.13 Estimated GFR > 60 BUN/Creatinine Ratio 26.5 H Glucose 93 Lactate 0.7 Calcium 8.9 Total Bilirubin 0.8 AST 27 ALT 28 Alkaline Phosphatase 86 C-Reactive Protein 2.6 H Total Protein 6.5 Albumin 3.8 Globulin 2.7 Albumin/Globulin Ratio 1.4 Procalcitonin 0.069 Blood Type A Positive Antibody Screen Negative Assessment & Plan Assessment & Plan narrative: 1. Cellulitis left thumb (paronychia). Active. 2. Thrombocytopenia likely MDS. Of note patient baseline platelet is usually in the 30s. [facility], PLT transfusions when less then 10k usually. 3. Hypothyroidism. Resume home Synthroid. 4. Hyperlipidemia. Resume home statin. 5. Restless leg syndrome. Resume home pramipexole. PLAN: Continue IV antibiotics for another midnight given the severity of pain, redness, and swelling. -monitor platelet count -Orthopedics as suggested Q 8 hour hand soaks in soapy warm water DVT prophylaxis None (low PLT) CODE STATUS DNR/DNI Disposition likely home in 1 days Time-Based Coding :: [TOTAL MINUTES] spent with patient and on the chart (including review of chart, obtaining history, exam, reviewing outside data, placing orders, documenting exam and treatment plan, and counseling patient) on [DATE].
--- NOTE | 2025-01-04 08:54 | PM.CN.IH.1 ---
History of Present Illness Consult details Chief complaint: Lt thumb swollen since yesterday Narrative: CHIEF COMPLAINT My thumb has a small cut and there's a concern about an infection. SUBJECTIVE The patient reports a spontaneous small wound on the left thumb which he says developed yesterday. He experiences discomfort which is localized to the dorsum of the thumb nailbed. There is no discomfort volarly. The pain has improved since it began. He was admitted last night and started on antibiotics. SOCIAL HISTORY Not discussed. 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 Small area at the nail bed with scant purulent drainage indicating a small nail bed infection with surrounding erythema. - Pain: Tenderness to palpation in the thumb area. - ROM: Discomfort with forced flexion localized to the dorsum of the thumb. No pain with extension. - Neurologic: No pain along the boulder aspect of the hand or in the thenar eminence. RADIOLOGY Not discussed. LABS - ESR: 10 - CRP: 2.5 (mildly elevated) - Platelets: Very low on admission, receiving a platelet transfusion. ASSESSMENT The patient presents with a left thumb nailbed paronychia with low platelets due to baseline MDS PLAN - Receiving IV antibiotics per medical team - Receiving platelet transfusion - Marsupialization or simple I&D could be a consideration however it is not an option currently due to the low platelet count. If his condition worsens on antibiotics and his platelets improve surgical intervention could be considered. I will continue monitoring his progression on antibiotics to make that determination Meds Home Medications and Allergies Home Medications ?Medication ?Instructions ?Recorded ?Confirmed ?Type latanoprost 0.005 % eye drops 1 drp EYE-BOTH BEDTIME 11/17/20 01/04/25 History pramipexole 1 mg tablet 1 mg PO BEDTIME 11/17/20 01/04/25 History ascorbic acid (vitamin C) 500 mg 500 mg PO DAILY 05/20/23 01/04/25 History tablet cholecalciferol (vitamin D3) 50 2,000 unit PO DAILY 05/20/23 01/04/25 History mcg (2,000 unit) capsule (Vitamin D3) ezetimibe 10 mg tablet 10 mg PO BEDTIME 05/20/23 01/04/25 History potassium gluconate 550 mg (90 mg) 550 mg PO DAILY 05/20/23 01/04/25 History tablet vit C 250 mg-E 90 mg-zinc 40 1 tab PO QAM AND QPM 05/20/23 01/04/25 History mg-copper 1 [id number] chew tablet (PreserVision AREDS-2) albuterol sulfate 90 mcg/actuation 2 puff inhalation Q6H PRN 07/11/23 01/04/25 Rx aerosol inhaler shortness of breath or wheezing #6.7 grams levothyroxine 100 mcg tablet 62 mcg PO .Wed 09/05/23 01/04/25 History rosuvastatin 10 mg tablet 10 mg PO DAILY 09/05/23 01/04/25 History timolol maleate 0.5 % eye drops 1 drp EYE-BOTH QAM 09/05/23 01/04/25 History oxycodone-acetaminophen 5 mg-325 1 tab PO Q4-6H PRN pain #10 tabs 11/04/24 01/04/25 Rx mg tablet (Percocet) diazepam 5 mg tablet 5 mg PO ONCE PM Insomnia 01/04/25 01/04/25 History levothyroxine 125 mcg tablet 125 mcg PO DAILY 01/04/25 01/04/25 History Allergies Allergy/AdvReac Type Severity Reaction Status Date / Time No Known Drug Allergies Allergy Verified 01/03/25 22:17 Exam Vital Signs (past 8 hours): - 01/04/25 01:01 01/04/25 01:14 01/04/25 01:14 Temperature Pulse Rate 71 55 L Respiratory Rate 19 14 Blood Pressure 134/62 Pulse Oximetry 93 96 Oxygen Delivery Method Nasal Cannula Oxygen Flow Rate 1 01/04/25 01:30 01/04/25 01:30 01/04/25 02:00 Temperature Pulse Rate 60 Respiratory Rate 17 Blood Pressure 145/82 H 133/63 Pulse Oximetry 100 Oxygen Delivery Method Nasal Cannula Oxygen Flow Rate 1 01/04/25 02:00 01/04/25 02:30 01/04/25 02:30 Temperature Pulse Rate 64 71 Respiratory Rate 11 L 16 Blood Pressure 141/84 H Pulse Oximetry 100 99 Oxygen Delivery Method Oxygen Flow Rate 01/04/25 03:00 01/04/25 04:09 01/04/25 04:17 Temperature 97.6 F 97.9 F Pulse Rate 56 L 61 54 L Respiratory Rate 14 19 18 Blood Pressure 102/59 L 102/59 L Pulse Oximetry 97 95 Oxygen Delivery Method Oxygen Flow Rate 0 01/04/25 04:30 01/04/25 04:30 01/04/25 04:48 Temperature 97.9 F 97.9 F 97.9 F Pulse Rate 64 56 L 60 Respiratory Rate 19 18 18 Blood Pressure 104/58 L 104/58 L 90/49 L Pulse Oximetry 95 97 Oxygen Delivery Method Oxygen Flow Rate 0 0 01/04/25 05:21 01/04/25 08:00 Temperature 97.9 F 98.0 F Pulse Rate 64 56 L Respiratory Rate 18 17 Blood Pressure 104/82 94/49 L Pulse Oximetry 98 Oxygen Delivery Method Oxygen Flow Rate 0 Oxygen Delivery Method Nasal Cannula Oxygen Flow Rate 0 Objective Labs 01/03/25 23:15 01/03/25 23:15 Labs: Laboratory Results - last 24 hr 01/03/25 01/04/25 01/04/25 23:15 00:35 03:20 WBC 6.0 RBC 3.90 L Hgb 11.8 L Hct 36.4 L MCV 93.4 MCH 30.2 MCHC 32.3 RDW 18.4 H Plt Count 17 L* Neut % (Auto) Not Reportable Lymph % (Auto) Not Reportable [place] % (Auto) Not Reportable Eos % (Auto) Not Reportable Baso % (Auto) Not Reportable Lymph # (Auto) Not Reportable [place] # (Auto) Not Reportable Baso # (Auto) Not Reportable Total Counted 100 Seg Neutrophils % 58.0 Lymphocytes % (Manual) 36.0 Monocytes % (Manual) 5.0 Eosinophils % (Manual) 1.0 L Neutrophils # (Manual) 3480 Platelet Estimate Decr Plt Morphology Comment RBC Morphology See below Anisocytosis 1+ H Ovalocytes 2+ H ESR 10 Sodium 136 L Potassium 4.3 Chloride 106 Carbon Dioxide 26 BUN 30 H Creatinine 1.13 Estimated GFR > 60 BUN/Creatinine Ratio 26.5 H Glucose 93 Lactate 0.7 Calcium 8.9 Total Bilirubin 0.8 AST 27 ALT 28 Alkaline Phosphatase 86 C-Reactive Protein 2.6 H Total Protein 6.5 Albumin 3.8 Globulin 2.7 Albumin/Globulin Ratio 1.4 Procalcitonin 0.069 Blood Type A Positive Antibody Screen Negative [facility] Medical History Myelodysplastic syndrome Thyroid cancer Hypothyroid Hyperlipidemia Surgical History H/O thyroidectomy Social History household members: spouse Tobacco & Substance Use alcohol intake: never Assessment & Plan Assessment and plan (1) Paronychia of thumb, left: Status: Acute Time-Based Coding :: [TOTAL MINUTES] spent with patient and on the chart (including review of chart, obtaining history, exam, reviewing outside data, placing orders, documenting exam and treatment plan, and counseling patient) on [DATE]. PROFEE Charge Codes Inpatient or Observation consultation: [id number]
[2025-01-04] MEDS: ATORVASTATIN 20 MG TABLET PO (09:12)
[2025-01-04 09:16] LABS: Add Manual Diff / Slide Review NO; Basophils Absolute Auto 0 /uL (0-100); Basophils Percent Auto 0.4 % (0-2); Eosinophils Absolute Auto 200 /uL (0-450); Eosinophils Percent Auto 4.3 % (2-4); Hematocrit 34.6 % (41-53); Hemoglobin 11.1 g/dL (13.5-17.5); Lymphocytes Absolute Auto 2000 /uL (1100-4500); Lymphocytes Percent Auto 35.5 % (25-40); Mean Corpuscular HGB Conc 32.2 % (30-36); Mean Corpuscular Hemoglobin 30.3 PG (26-34); Monocytes Absolute Auto 300 /uL (0-900); Monocytes Percent Auto 5.5 % (3-14); Neutrophils Absolute Auto 3100 /uL (1500-7000); Neutrophils Percent Auto 54.3 % (50-75); Platelet Count 55 X10^3/uL (150-400); Red Blood Cell Count 3.68 X10^6/uL (4.5-5.9); White Blood Cell Count 5.8 X10^3/uL (4.5-11.0)
[2025-01-04] MEDS: cefTRIAXone 1,000 MG in SODIUM CHLORIDE 0.9% 100 ML 200 MG IV (21:14)
[2025-01-04] MEDS: LATANOPROST 0.005% OPHTH 2.5 ML 1 DROPS EYE-BOTH (21:14)
[2025-01-04] MEDS: EZETIMIBE 10 MG TABLET PO (21:14)
[2025-01-04] MEDS: PRAMIPEXOLE 0.25 MG TABLET 1 MG PO (21:14)
--- NOTE | 2025-01-04 21:43 | PC.NURSE ---
Pt soaked L hand in soapy warm water for 15 mins. Denies any pain at this time.
[2025-01-04] MEDS: ACETAMINOPHEN 325 MG TABLET 650 MG PO (22:02)
[2025-01-05] MEDS: VANCOMYCIN 1,250 MG/250 ML PIGGYBACK 250 MG IV (00:03)
[2025-01-05] MEDS: LEVOTHYROXINE 125 MCG TABLET PO (05:20)
--- NOTE | 2025-01-05 05:28 | PC.NURSE ---
Pt soaked L hand with soapy warm water.
[2025-01-05 05:29] LABS: Basophils Absolute Auto 100 /uL (0-100); Basophils Percent Auto 1.5 % (0-2); Eosinophils Absolute Auto 200 /uL (0-450); Eosinophils Percent Auto 4.6 % (2-4); Hematocrit 37.8 % (41-53); Hemoglobin 12.2 g/dL (13.5-17.5); Lymphocytes Absolute Auto 2200 /uL (1100-4500); Lymphocytes Percent Auto 43.8 % (25-40); Mean Corpuscular HGB Conc 32.3 % (30-36); Mean Corpuscular Hemoglobin 30.3 PG (26-34); Mean Corpuscular Volume 93.8 fL (80-100); Monocytes Absolute Auto 200 /uL (0-900); Neutrophils Absolute Auto 2200 /uL (1500-7000); Neutrophils Percent Auto 45.1 % (50-75); Platelet Count 54 X10^3/uL (150-400); Red Blood Cell Count 4.03 X10^6/uL (4.5-5.9); Red Cell Distribution Width 18.6 % (11.6-14.8); White Blood Cell Count 4.9 X10^3/uL (4.5-11.0)
[2025-01-05 05:41] LABS: Add Manual Diff / Slide Review SLIDE REVIEW
[2025-01-05 05:42] LABS: Alanine Aminotransferase 24 IU/L (<50); Albumin 3.9 g/dL (3.5-5.0); Albumin Globulin Ratio 1.4 (1.0-2.8); Alkaline Phosphatase 83 U/L (38-126); Aspartate Aminotransferase 30 IU/L (17-59); BUN Creatinine Ratio 24.1 (6-22); Bilirubin Total 0.7 mg/dL (0.2-1.3); Blood Urea Nitrogen 28 mg/dL (9-20); Calcium 9.1 mg/dL (8.4-10.2); Carbon Dioxide 27 mmol/L (22-32); Chloride 107 mmol/L (98-107); Estimated Glomerular Filt Rate > 60 mL/min (>60); Globulin 2.8 g/dL (1.7-4.1); Glucose 94 mg/dL (70-99); HEMOLYSIS 24 (0-50); Potassium 4.3 mmol/L (3.4-5.1); Sodium 140 mmol/L (137-145); Total Protein 6.7 g/dL (6.3-8.2)
[2025-01-05 05:54] LABS: Anisocytosis 2+; Ovalocytes 2+; Platelet Estimate Decreased on smear
[2025-01-05] MEDS: ACETAMINOPHEN 325 MG TABLET 650 MG PO (06:06)
[2025-01-05 06:12] LABS: Thyroid Stimulating Hormone 17.7 uIU/mL (0.47-4.68)
[2025-01-05 08:00] VITALS: BP 113/69; PULSE 56; RESP 16; TEMP 36.5; O2SAT 96
[2025-01-05] MEDS: ATORVASTATIN 20 MG TABLET PO (08:47)
[2025-01-05] MEDS: VIT C/E/ZN/COPPR/LUTEIN/ZEAXAN CAPSULE 1 CAP PO (08:47)
--- NOTE | 2025-01-05 11:19 | PC.NURSE ---
Patients left thumb is red and swollen but looking better per patient. He denies pain and has been doing his hand soaks with warm water and soap. Resting comfortable now.
--- NOTE | 2025-01-05 12:07 | PM.DS.1 ---
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 Per the patient's report, started to notice increased swelling and redness dorsum aspect right by the nail of his left thumb. This has been ongoing for the last 2 days. The patient denies any known injury to the left thumb. The patient was seen in clinic earlier this morning and was given Keflex in which she took the first dose. Despite taking and starting on the antibiotic the patient thumb continued to swell, increased redness, increasing pain and unable to bend his thumb. Otherwise the patient denies any fever, chills, nausea, vomiting, diarrhea or chest pain. ED course: the patient was hemodynamically stable. Labs shows no sign of sepsis though platelet was 17,000. The patient has no active bleeding per ER physician. Per our system patient platelet normally runs in the 30s. Her ER physician requested placed left to be transferred here for transfusion. The patient was given IV ceftriaxone and IV vancomycin. Orthopedic surgeon was also consulted after CT scan shows no sign of abscess. However Ortho was consulted to assess for any possible tenosynovitis. S: He is doing well, his thumb is more swollen and red and painful today than yesterday. He states it did improve a bit after the 1st dose of antibiotics. I did speak with Orthopedics who thinks that we should use antibiotics and soak this but that it does not need incision and drainage at this point in time. In addition the patient's platelets are chronically low, he received platelets last evening. His platelets went from 17 to 55. Discharge Providers Provider Date of admission: 01/04/25 03:06 Discharge Date: 01/05/25 Primary care physician: Violetta Clark MD Consults: 01/04/25 08:26 Consult to Orthopedic Surgery Routine Comment: Consulting Provider: Flip Kyle Reason for consultation: Concern for left thumb infection Has provider been notified: Yes Discharge provider: Robby Boles DO Summary Hospital Course Discharge Diagnosis: 1. Cellulitis left thumb (paronychia). Active. 2. Thrombocytopenia likely MDS. 3. Hypothyroidism. 4. Hyperlipidemia. 5. Restless leg syndrome. Hospital Course: This is an 89 year old male who was admitted with cellulitis of his left thumb due to paronychia. Surgical management was initially considered, however his platelets which are chronically low were too low per the surgeon. He had continued improvement in his left thumb with improving pain, redness and swelling. Patient was given follow up with a hand surgeon two days after discharge. He will complete antibiotic course with doxycycline given improvement with ceftriaxone and vancomycin. No other changes to home medications were recommended on discharge. Time Spent with Patient Time spent: Less than 30 minutes Exam Vital Signs (past 8 hours): - 01/05/25 08:00 Temperature 97.7 F Pulse Rate 56 L Respiratory Rate 16 Blood Pressure 113/69 Pulse Oximetry 96 Oxygen Flow Rate 0 Oxygen Delivery Method Room Air Oxygen Flow Rate 0 Narrative Exam Narrative: NAD, alert and oriented, fluent speech, calm. Normocephalic skull, EOMI, anicteric sclera, symmetric pupils. Oropharynx unremarkable, no droop. Neck supple, midline trachea, no adenopathy. Lungs clear, normal rate and effort. Heart regular, no murmur gallop or rub. Abdomen is soft, non distended and non tender. Extremities are free of edema. Skin is free of rash or lesions. Joints are not swollen or deformed. Judgment appears to be normal. The left thumb is red and swollen just above the nail consistent with paronychia. Objective Labs 01/05/25 04:54 01/05/25 04:54 Labs: Laboratory Results - last 24 hr 01/05/25 04:54 WBC 4.9 RBC 4.03 L Hgb 12.2 L Hct 37.8 L MCV 93.8 MCH 30.3 MCHC 32.3 RDW 18.6 H Plt Count 54 L Neut % (Auto) 45.1 L Lymph % (Auto) 43.8 H [place] % (Auto) 5.0 Eos % (Auto) 4.6 H Baso % (Auto) 1.5 Neut # (Auto) 2200 Lymph # (Auto) 2200 [place] # (Auto) 200 Eos # (Auto) 200 Baso # (Auto) 100 Platelet Estimate Decreased on smear Plt Morphology Comment RBC Morphology See below Anisocytosis 2+ H Ovalocytes 2+ H Sodium 140 Potassium 4.3 Chloride 107 Carbon Dioxide 27 BUN 28 H Creatinine 1.16 Estimated GFR > 60 BUN/Creatinine Ratio 24.1 H Glucose 94 Calcium 9.1 Total Bilirubin 0.7 AST 30 ALT 24 Alkaline Phosphatase 83 Total Protein 6.7 Albumin 3.9 Globulin 2.8 Albumin/Globulin Ratio 1.4 TSH 17.7 H PFSH Medical History Myelodysplastic syndrome Thyroid cancer Hypothyroid Hyperlipidemia Surgical History H/O thyroidectomy Social History household members: spouse alcohol intake: never Discharge Plan Discharge Plan Patient Disposition: Home Provider Discharge Comment: You were admitted to the hospital with a soft tissue infection of your thumb. Continue antibiotics at home and follow up this sunday with the hand surgeon as already scheduled. Please see discharge instructions below for care at home, you can also add antibacterial ointment (OTC) at home as well. Discharge orders & Medications Prescriptions: New doxycycline hyclate 100 mg tablet 100 mg PO BID 7 Days Qty: 14 0RF Continued levothyroxine 100 mcg tablet 62 mcg PO .Sun Rx Instructions: Sunday only rosuvastatin 10 mg tablet 10 mg PO DAILY timolol maleate 0.5 % drops 1 drp EYE-BOTH QAM oxycodone-acetaminophen [Percocet] 5-325 mg tablet 1 tab PO Q4-6H PRN (Reason: pain) Qty: 10 0RF levothyroxine 125 mcg tablet 125 mcg PO DAILY diazepam 5 mg tablet 5 mg PO ONCE PM pramipexole 1 mg tablet 1 mg PO BEDTIME latanoprost 0.005 % drops 1 drp EYE-BOTH BEDTIME ascorbic acid (vitamin C) 500 mg Tablet 500 mg PO DAILY ezetimibe 10 mg tablet 10 mg PO BEDTIME cholecalciferol (vitamin D3) [Vitamin D3] 50 mcg (2,000 unit) Capsule 2,000 unit PO DAILY potassium gluconate 550 mg (90 mg) Tablet 550 mg PO DAILY PreserVision AREDS-2 250-90-40-1 mg Tablet,Chewable 1 tab PO QAM AND QPM albuterol sulfate 90 mcg/actuation HFA aerosol inhaler 2 puff inhalation Q6H PRN (Reason: shortness of breath or wheezing) Qty: 6.7 0RF Rx Instructions: Please dispense with spacer and inhaler use instruction Follow up/Referrals: Violetta Clark MD [Primary Care Provider, Internal Medicine] Diet/Activity/Treatments Diet: Diet as Tolerated and Regular Activity: As tolerated, no restrictions. Visit Report/Discharge Packet Instructions: DI for Cellulitis -- Adult, DI for Paronychia Stand Alone Forms: Patient Portal/API, Stroke Signs & Symptoms Discharge Data Primary Care Provider: Violetta Clark Attending Provider: Sean Murillo Admit Date/Time: 01/04/25 03:06
--- NOTE | 2025-01-05 13:41 | CM.DANOTE ---
DCP Assessment Note pt is an 89yo M admitted with L thumb cellulitis. low platelets at baseline, have been lower than normal during admission. received transfusion during admission PCP Violetta HERNANDEZP [employer] and self pay [employer] reviewed EMR per chart, lives in [place] with spouse Randa, indep at baseline, uses walker. per RN notes/RN report, A/Ox3, mobilizing at baseline, no obvious CM needs. per provider in morning rounds, likely dc today. later in shift, DC order placed. per chart, hx of [facility], per [facility] at [facility], not currently active with them. [employer] attemtped to meet with pt in room, per PSYCHIATRIC CLINICIAN, pt and family had just left. P: dc today with OP f/u likely. no further CM needs at this time. will continue to follow as needed ARLENE Bowman Discharge Planning/Care Management CM Discharge Assessment Start: 01/04/25 03:25 Freq: Status: Active Protocol: Document 01/05/25 13:37 SL (Rec: 01/05/25 13:38 Desktop) Discharge Planning Assessment Assigned Discharge ARLENE Wilkes Chiller Tender DPOA/Assigned Randa, spouse Designee Name Contact Information [phone] Advance Directives? Yes Advance Directives No on File History Provided By Patient,Medical Record Household Members spouse Independent with ADL Yes 's Is patient alert and Yes oriented? DME Already Rented / Cane Owned Discharge Plan Home Transportation family with POV Arrangement Referrals Initiated None needed Review Status In Process Please Provide Date 01/05/25 Initial DC Assessment Was Performed Next Review Type Continued Stay Review Document 01/05/25 13:38 SL (Rec: 01/05/25 13:41 SL Desktop) Discharge Planning Assessment Assigned Discharge ARLENE Wilkes Chiller Tender DPOA/Assigned Randa, spouse Designee Name Contact Information [phone] Advance Directives? Yes Advance Directives No on File History Provided By Patient,Medical Record Household Members spouse Independent with ADL Yes 's Is patient alert and Yes oriented? DME Already Rented / Cane Owned Discharge Plan Home Transportation family with POV Arrangement Referrals Initiated None needed Review Status In Process Please Provide Date 01/05/25 Initial DC Assessment Was Performed Next Review Type Continued Stay Review
== END 2025-01-05 13:41 | disposition home or self-care (01) ==
LOC: ED 21:33 → AC 01-04 03:06
PROVIDERS: Hospitalist; Orthopaedic Surgery Adult Reconstructive Orthopaedic Surgery; Admitting Provider Internal Medicine; Emergency Provider Emergency Medicine; Family Provider Internal Medicine Hematology & Oncology; PCP Internal Medicine; Visit Provider Internal Medicine
DX: L03.012 Cellulitis of left finger (principal); D69.6 Thrombocytopenia, unspecified; E03.9 Hypothyroidism, unspecified; E78.5 Hyperlipidemia, unspecified; Z79.890 Hormone replacement therapy; G25.81 Restless legs syndrome
CPT/HCPCS: 36415; 36430; 73140; 73201; 80053; 83605; 84145; 84443; 85007; 85025; 85651; 86140; 86850; 86900; 86901; 87040; 87070; 87075; 87077; 87147; 87186; 87205; 96365; 96366; 96367; 96375; 96376; 99233; 99285; 99291; G0378; J0696; J1171; J2405; P9035; Q9967

== ENCOUNTER → 2025-01-09 08:55 | Outpatient (CLI) | payer MEDICARE, SELFPAY ==
[2025-01-04 04:22] VITALS: BMI 23.8
[2025-01-09 09:55] LABS: Hematocrit 37.3 % (41-53); Platelet Count 49 X10^3/uL (150-400)
[2025-01-09 10:10] LABS: BUN Creatinine Ratio 23.6 (6-22); Blood Urea Nitrogen 26 mg/dL (9-20); Calcium 9.4 mg/dL (8.4-10.2); Carbon Dioxide 26 mmol/L (22-32); Chloride 104 mmol/L (98-107); Estimated Glomerular Filt Rate > 60 mL/min (>60); Glucose 104 mg/dL (70-99); HEMOLYSIS < 15 (0-50); Potassium 4.3 mmol/L (3.4-5.1); Sodium 136 mmol/L (137-145)
== END ==
LOC: LAB 08:57
PROVIDERS: Family Provider Internal Medicine Hematology & Oncology; PCP Internal Medicine; Referring Provider Orthopaedic Surgery; Visit Provider Orthopaedic Surgery
DX: Z01.812 Encounter for preprocedural laboratory examination (principal)
CPT/HCPCS: 36415; 80048; 85014; 85049

== ENCOUNTER 2025-01-28 18:08 | Emergency (ER) | payer MEDICARE, SELFPAY ==
[2025-01-04 04:22] VITALS: BMI 23.8
[2025-01-28 18:15] VITALS: BP 150/67; PULSE 66; RESP 16; TEMP 36.7; O2SAT 100; BMI 23.8
[2025-01-28] MEDS: ACETAMINOPHEN 325 MG TABLET 650 MG PO (18:29)
--- NOTE | 2025-01-28 21:15 | ED.RECABL ---
HPI - Recheck/Abnormal Lab/Rx General Chief Complaint: Recheck/Abnormal Lab/Rx Stated Complaint: WIC sent to get left thumb checked maybe infection Time Seen by Provider: 01/28/25 18:21 Source: patient Mode of arrival: Ambulatory History of Present Illness HPI narrative: 89-year-old male had left thumb reaction, eventually found to have small cyst that was removed by hand surgeon at [facility] in [place] on 01/13/2025, had postoperative wound check and suture removal on 01/26/2025 that seemed to be doing well, using Coban wrap, now with increased swelling to the left thumb without injury. No fevers or chills. No redness or streaking proximally. No other digits affected. Patient concerned about possible infection. Currently not on any antibiotics. About to depart for [facility] [employer] trip [facility] starting day after tomorrow. Related Data Home Medications ?Medication ?Instructions ?Recorded ?Confirmed latanoprost 0.005 % eye drops 1 drp EYE-BOTH BEDTIME 11/17/20 01/04/25 pramipexole 1 mg tablet 1 mg PO BEDTIME 11/17/20 01/04/25 ascorbic acid (vitamin C) 500 mg 500 mg PO DAILY 05/20/23 01/04/25 tablet cholecalciferol (vitamin D3) 50 2,000 unit PO DAILY 05/20/23 01/04/25 mcg (2,000 unit) capsule (Vitamin D3) ezetimibe 10 mg tablet 10 mg PO BEDTIME 05/20/23 01/04/25 potassium gluconate 550 mg (90 mg) 550 mg PO DAILY 05/20/23 01/04/25 tablet vit C 250 mg-E 90 mg-zinc 40 1 tab PO QAM AND QPM 05/20/23 01/04/25 mg-copper 1 [id number] chew tablet (PreserVision AREDS-2) levothyroxine 100 mcg tablet 62 mcg PO .Wed 09/05/23 01/04/25 rosuvastatin 10 mg tablet 10 mg PO DAILY 09/05/23 01/04/25 timolol maleate 0.5 % eye drops 1 drp EYE-BOTH QAM 09/05/23 01/04/25 diazepam 5 mg tablet 5 mg PO ONCE PM Insomnia 01/04/25 01/04/25 levothyroxine 125 mcg tablet 125 mcg PO DAILY 01/04/25 01/04/25 Previous Rx's ?Medication ?Instructions ?Recorded albuterol sulfate 90 mcg/actuation 2 puff inhalation Q6H PRN 07/11/23 aerosol inhaler shortness of breath or wheezing #6.7 grams oxycodone-acetaminophen 5 mg-325 1 tab PO Q4-6H PRN pain #10 tabs 11/04/24 mg tablet (Percocet) cephalexin 500 mg tablet 500 mg PO QID 7 days #28 tabs 01/28/25 Allergies Allergy/AdvReac Type Severity Reaction Status Date / Time No Known Drug Allergies Allergy Verified 01/03/25 22:17 Patient History Medical History Myelodysplastic syndrome Thyroid cancer Hypothyroid Hyperlipidemia Surgical History H/O thyroidectomy Social History household members: spouse alcohol intake: never tobacco type: cigarettes alcohol intake frequency: holidays/special occasions only Exam Narrative Exam Narrative: GENERAL: Well-developed patient, in mild distress. HEAD: Atraumatic. Normocephalic. EYES: Pupils equal round and reactive. Extraocular motions intact. No scleral icterus. No injection or drainage. ENT: Nose without bleeding, purulent drainage. Throat without erythema, tonsillar hypertrophy or exudate. Airway patent. NECK: Trachea midline. Non tender CARDIOVASCULAR: Regular rate and rhythm without murmurs, gallops, or rubs. RESPIRATORY: Clear to auscultation. Breath sounds equal bilaterally. No wheezes, rales, or rhonchi. GASTROINTESTINAL: Abdomen soft, non-tender, nondistended. EXTREMITIES: Left thumb with healing scars, status post suture removal, slight redness thumb, no streaking to the wrist crease or along forearm. BACK: Nontender without deformity or crepitance. No flank tenderness. NEURO: AOx3. Motor functions grossly nonfocal. SKIN: No rash or erythema of visible areas Initial Vital Signs Initial Vital Signs: Vital Signs Temperature 98.1 F 01/28/25 18:15 Pulse Rate 66 01/28/25 18:15 Respiratory Rate 16 01/28/25 18:15 Blood Pressure 150/67 H 01/28/25 18:15 Pulse Oximetry 100 01/28/25 18:15 Oxygen Delivery Method Room Air 01/28/25 18:15 Course Orders Ordered: Discontinued Medications Acetaminophen (Acetaminophen 325 Mg Tablet) 650 mg PO NOW ONE Stop: 01/28/25 18:26 Last Admin: 01/28/25 18:29 Dose: 650 mg Documented By: RAMIRO Cephalexin HCl (Cephalexin 250 Mg Capsule) 500 mg PO NOW ONE Stop: 01/28/25 21:22 Last Admin: 01/28/25 21:31 Dose: 500 mg Documented By: Vital Signs Vital signs: Vital Signs - 8 hr 01/28/25 18:15 01/28/25 21:43 Temperature 98.1 F Pulse Rate 66 71 Respiratory Rate 16 16 Blood Pressure 150/67 H 106/60 Pulse Oximetry 100 95 Oxygen Delivery Method Room Air Room Air MDM - Recheck/Abnormal Lab/Rx MDM Narrative Medical decision making narrative: 89-year-old male with recent left thumb surgery, excision of a cystic structure by hand surgeon in [place], suture removal on 01/26/2025, now having a day or so I have increasing redness, no new injury. Concerned about infection. Patient is also about to embark on a vacation fishing trip to [facility] in a couple of days. Afebrile. Exam consistent with cellulitis, some slight redness. Trial of oral antibiotic. Cephalexin dose now, prescription sent to pharmacy. Advised wound check [facility] if possible in the next 2-3 days, possibly at [facility] if in that vicinity then. Return precautions discussed. Home with spouse. Discharge Plan Departure Patient Disposition: Home Clinical Impression: Cellulitis of left thumb Activity Restrictions/Additional Instructions: Recent surgery left thumb [place] hand surgeon, removal of a cyst, with suture removal in clinic on 01/26/2025, using Coban style wrap. With increasing swelling, some slight redness. No streaking or swelling to the wrist or forearm. No fever on triage. Exam consistent with cellulitis. Consider course of antibiotics. Oral cephalexin dose given now, prescription sent to requested pharmacy in [place]. About to go on a fishing trip around the [facility]. Consider recheck in clinic in the next 2-3 days at [facility] or nearest port of call. Return to this/nearest emergency department for any change worsening symptoms or any concerns prior. Prescriptions: New cephalexin 500 mg tablet 500 mg PO QID 7 Days Qty: 28 0RF No Action levothyroxine 100 mcg tablet 62 mcg PO .Sun Rx Instructions: Sunday only rosuvastatin 10 mg tablet 10 mg PO DAILY timolol maleate 0.5 % drops 1 drp EYE-BOTH QAM oxycodone-acetaminophen [Percocet] 5-325 mg tablet 1 tab PO Q4-6H PRN (Reason: pain) Qty: 10 0RF levothyroxine 125 mcg tablet 125 mcg PO DAILY diazepam 5 mg tablet 5 mg PO ONCE PM pramipexole 1 mg tablet 1 mg PO BEDTIME latanoprost 0.005 % drops 1 drp EYE-BOTH BEDTIME ascorbic acid (vitamin C) 500 mg Tablet 500 mg PO DAILY ezetimibe 10 mg tablet 10 mg PO BEDTIME cholecalciferol (vitamin D3) [Vitamin D3] 50 mcg (2,000 unit) Capsule 2,000 unit PO DAILY potassium gluconate 550 mg (90 mg) Tablet 550 mg PO DAILY PreserVision AREDS-2 250-90-40-1 mg Tablet,Chewable 1 tab PO QAM AND QPM albuterol sulfate 90 mcg/actuation HFA aerosol inhaler 2 puff inhalation Q6H PRN (Reason: shortness of breath or wheezing) Qty: 6.7 0RF Rx Instructions: Please dispense with spacer and inhaler use instruction Referrals: Violetta Clark MD [Primary Care Provider, Internal Medicine] Stand Alone Forms: Patient Portal/API
[2025-01-28 21:43] VITALS: BP 106/60; PULSE 71; RESP 16; O2SAT 95
== END 2025-01-28 21:44 | disposition home or self-care (01) ==
PROVIDERS: Emergency Provider Emergency Medicine; Family Provider Internal Medicine Hematology & Oncology; PCP Internal Medicine
DX: L03.012 Cellulitis of left finger (principal)
CPT/HCPCS: 99283

== ENCOUNTER → 2025-04-06 14:15 | Outpatient (CLI) | payer MEDICARE, SELFPAY ==
[2025-01-04 04:22] VITALS: BMI 23.8
== END ==
PROVIDERS: Family Provider Internal Medicine Hematology & Oncology; PCP Internal Medicine; Referring Provider Dermatology; Visit Provider Dermatology
DX: L12.0 Bullous pemphigoid (principal)
CPT/HCPCS: 36415; 83516

== ENCOUNTER → 2025-05-19 20:35 | Outpatient (ROUT) | payer MEDICARE, SELFPAY ==
[2025-01-04 04:22] VITALS: BMI 23.8
== END ==
PROVIDERS: Family Provider Internal Medicine Hematology & Oncology; PCP Internal Medicine; Visit Provider Dermatology
DX: L03.90 Cellulitis, unspecified (principal); L01.09 Other impetigo; Z79.899 Other long term (current) drug therapy
CPT/HCPCS: 87070; 87075; 87205

== ENCOUNTER → 2025-07-14 09:20 | Outpatient (CLI) | payer MEDICARE, SELFPAY ==
[2025-01-04 04:22] VITALS: BMI 23.8
--- NOTE | 2025-07-14 09:25 | DI.CT.S_ITS ---
PROCEDURE: CT CHEST ABD PEL W CON INDICATIONS: Concern for cancer due to lesion TECHNIQUE: After the administration of intravenous contrast, 5 mm thick sections acquired from the lung apices to the symphysis. 5 mm coronal and sagittal reformats were performed, with additional 7 mm MIP reformats through the lungs. For radiation dose reduction, the following was used: automated exposure control, adjustment of mA and/or kV according to patient size. COMPARISON: [facility], CT, CT UE LT W CON, 01/04/2025, 0:28. [facility], CT, CT CHEST WO CON, 02/13/2019, 7:03. [facility], CT, CT ABDOMEN PELVIS WO CON, 01/20/2020, 12:09. FINDINGS: Image quality: Diagnostic Lungs and pleura: Mild ground-glass opacities in the bilateral lower lungs. Scattered scarring and atelectasis most focally in the right middle lobe. No pleural effusions. Mediastinum, heart, and esophagus: Mildly distended main pulmonary artery measuring 3.1 cm which can be associated with elevated pulmonary pressures. Coronary calcifications. Unremarkable CT appearance of the esophagus. mildly prominent lymph node in the anterior mediastinum measuring 0.8 cm (2/41). No other enlarged lymph nodes identified. Chest wall and thyroid: Thyroid bed postsurgical changes. No axillary lymph nodes enlarged by size criteria. Liver: Left lobe liver cysts. Subcentimeter lesions also seen, too small to characterize probably also cysts. Gallbladder and biliary system: Unremarkable, nondilated Pancreas: Mild parenchymal atrophy. No ductal dilation Spleen: Nonenlarged Adrenals: No discrete nodules Kidneys: No solid renal mass. No hydronephrosis. Vessels and lymph nodes: The main portal vein is patent. [id number] aortoiliac atherosclerotic calcifications. 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 No lymph nodes enlarged by size criteria. Bowel and peritoneum: No bowel obstruction. Moderate colonic fecal loading. No drainable abscess or ascites. Colonic diverticula are seen. Nondilated appendix Body wall: Small fat containing left inguinal hernia. Pelvis: Under distended urinary bladder. Possible TURP changes. No inguinal lymph nodes enlarged by size criteria. Bones: Diffuse degenerative osseous changes. Chronic appearing L1 height loss. IMPRESSION: No definite disseminated metastases identified. Mild ground-glass opacities in the lower lungs likely infectious/inflammatory. Mildly prominent anterior mediastinal lymph node measuring 0.8 cm, indeterminate, possibly reactive. No lymph nodes identified enlarged by size criteria. Consider follow-up imaging for these findings given underlying malignancy concern. 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 Other findings above. Dictated by: Den Villarreal M.D. on 07/14/2025 at 15:31 Approved by: Den Villarreal M.D. on 07/14/2025 at 15:42
[2025-07-14 09:51] LABS: Estimated Glomerular Filt Rate > 60 mL/min (>60)
== END ==
PROVIDERS: Radiology Diagnostic Radiology; Family Provider Internal Medicine Hematology & Oncology; PCP Internal Medicine; Referring Provider Internal Medicine; Visit Provider Internal Medicine
DX: I72.3 Aneurysm of iliac artery (principal); K57.90 Diverticulosis of intestine, part unspecified, without perforation or abscess without bleeding; R21 Rash and other nonspecific skin eruption; I25.10 Atherosclerotic heart disease of native coronary artery without angina pectoris; K76.89 Other specified diseases of liver; I70.0 Atherosclerosis of aorta; K40.90 Unilateral inguinal hernia, without obstruction or gangrene, not specified as recurrent
CPT/HCPCS: 36415; 71260; 74177; 82565; Q9967